=== PATIENT | female | born 1985 | race Caucasian/White ===

== ENCOUNTER 2023-09-08 09:22 | Emergency (ER) | payer BC, SELFPAY ==
--- NOTE | ~2023-09-08 | US_ITS ---
EXAMINATION: US pelvic complete w TV DATE: 09/08/2023 11:40 INDICATION: Right lower quadrant abdominal pain. TECHNIQUE: Multiple transabdominal and transvaginal sonographic images of the pelvis were obtained. COMPARISON: CT abdomen and pelvis 09/08/2023 FINDINGS: TRANSABDOMINAL ULTRASOUND: The uterus measures 6.7 x 3.1 x 3.6 cm. There is no free fluid in the pelvis. TRANSVAGINAL ULTRASOUND: The endometrial complex measures 5 mm in thickness. The right ovary measures 2.2 x 1.5 x 1.9 cm. The left ovary measures 2.6 x 1.8 x 1.5 cm. There is normal vascular flow in the ovaries. IMPRESSION: 1. Normal pelvis. Reviewed, dictated and finalized at location A. ATIONS SYSTEMS SPECIALIST IMPRESSION: 1. Normal pelvis.
--- NOTE | ~2023-09-08 | CT_ITS ---
CT of the Abdomen and Pelvis: Indication: Abdominal pain Technique: 2.5 mm axial scans were obtained through the abdomen and pelvis following intravenous adm inistration of 100 cc of Omnipaque 350. Dose reduction technique was used on this scan by utilizing a utomated exposure control and iterative reconstruction technique. The dose-length product (DLP) was 1 200.62 mGy-cm. Findings: Scans through the lung bases are unremarkable. There is diffuse fatty infiltration of liver. Cholecystectomy clips are present. The spleen, pancreas , adrenals and kidneys are within normal limits. No evidence of aortic aneurysm. No lymphadenopathy . No bowel obstruction or bowel wall thickening. There is no evidence to suggest acute appendicitis. Images through the pelvis were performed. Urinary bladder is unremarkable. No abnormal adnexal mass e vident. No ascites. There is degenerative spondylosis of the thoracolumbar spine. Large ossified disc complex at L1-L2 result in probable severe canal stenosis. Impression: No acute abnormality evident. Diffuse fatty infiltration of the liver. Degenerative spondylosis of lumbar spine, as above. Reviewed, dictated and finalized at [facility]. ISION ASSEMBLY INSPECTOR Impression: No acute abnormality evident. Diffuse fatty infiltration of the liver. Degenerative spondylosis of lumbar spine, as above.
[2023-09-08 09:23] VITALS: BP 111/84; PULSE 111; RESP 20; TEMP 36.9; O2SAT 100
[2023-09-08 09:47] LABS: Basophils Absolute Auto 0.2 K/mm3 (0.0-0.1); Eosinophils Absolute Auto 0.1 K/mm3 (0-0.3); Eosinophils Percent Auto 0.8 % (0-4.4); Hematocrit 45.7 % (37.0-47.0); Immature Granulocyte Absolute 0.08 K/mm3 (0.00-0.031); Immature Granulocyte Percent A 0.5 % (0-0.5); Lymphocytes Absolute Auto 1.92 K/mm3 (0.9-3.2); Lymphocytes Percent Auto 12.9 % (18.3-44.2); Mean Corpuscular HGB Conc 32.8 g/dl (32-36); Mean Corpuscular Hemoglobin 31.7 pg (26-34); Mean Corpuscular Volume 96.6 fl (80-100); Monocytes Absolute Auto 1.2 K/mm3 (0.1-0.6); Monocytes Percent Auto 7.7 % (2.6-8.5); Neutrophils Absolute Auto 11.5 K/mm3 (1.3-6.7); Neutrophils Percent Auto 77.1 % (45.5-73.1); Platelet Count Result 283 k/mm3 (150-375); Red Blood Count 4.73 M/mm3 (4.2-5.4); Red Cell Distribution Width 14.3 % (11.5-14.5); White Blood Count 14.9 K/mm3 (4.5-10.0)
--- NOTE | 2023-09-08 09:50 | ED.GENADULT ---
HPI - General Adult General Chief complaint: Abdominal Pain Stated complaint: ABD PAIN X4D Time Seen by Provider: 09/08/23 09:29 Source: patient Mode of arrival: ambulatory Limitations: no limitations History of Present Illness HPI narrative: This is a 38-year-old female who presents to the ED with chief complaint of right lower quadrant pain x4 days. Reports nausea with 1 episode of vomiting and decreased appetite. Reports she has had similar pains in the past due to ruptured ovarian cysts but it has never lasted this long before. Reports pain seems to be cyclical and baseline 4 out of 10, but comes in waves were increasing in severity. She does note starting her menstrual cycle 3 days ago as well. Denies fevers, chills, dysuria, hematuria, flank pain, chest pain, shortness of breath, cough. Related Data Home Medications Medication Instructions Recorded Confirmed atomoxetine 60 mg capsule 60 mg PO DAILY 03/27/23 03/27/23 Allergies Allergy/AdvReac Type Severity Reaction Status Date / Time antifungal AdvReac Mild GI UPSET Uncoded 03/27/23 13:26 Review of Systems Review of Systems: All systems as dictated in HPI [facility] Past Medical History Medical History ADHD Anxiety Headache PCOS (polycystic ovarian syndrome) Surgical History Surgical History H/O gastric sleeve History of back surgery History of cholecystectomy History of dilatation and curettage S/P ovarian cystectomy Family History Family History Other Alcoholism Depression Hypertension Social History Social History Smoking status: Never smoker Alcohol intake: current Substance use: never Substance use type: does not use Lack of Transportation: No Lack of Food: Never True Current Housing: I Have Housing Concerned About Future Housing: No Difficulty Paying Gas/Electric Bills: No Difficulty Paying for Meds: No Currently Unemployed: No Education: Bachelor's Degree Difficulty w/ Childcare or Family Care: No Exam Narrative: GENERAL: Well-appearing, well-nourished, and in no acute distress. HEAD: Normocephalic, atraumatic. EYES: PERRLA and EOMI. ENT: Nares clear, no rhinorrhea or epistaxis. Mucous membranes moist. Oropharynx without tonsillar hypertrophy exudate or other lesions. NECK: Supple. No adenopathy or masses. CHEST: No respiratory distress. Clear to auscultation. No wheezes rales or rhonchi HEART: Regular rate and rhythm. No murmur heard. Normal peripheral pulses. ABDOMEN: Mild right lower quadrant tenderness. Negative flank tenderness bilaterally. Soft, otherwise nontender, nondistended, normal active bowel sounds. Negative peritoneal signs. MSK: Normal range of motion. No edema. SKIN: Warm, dry, no rash. NEURO: Alert and oriented x3. No focal deficits. PSYCH: Normal mood and affect. Course Vital Signs Vital signs: Vital Signs Temperature 98.4 F 09/08/23 09:23 Pulse Rate 111 H 09/08/23 09:23 Respiratory Rate 20 09/08/23 09:23 Blood Pressure 111/84 09/08/23 09:23 Pulse Oximetry 100 09/08/23 09:23 Temperature 98.4 F 09/08/23 09:23 Pulse Rate 111 H 09/08/23 09:23 Respiratory Rate 20 09/08/23 09:23 Blood Pressure 111/84 09/08/23 09:23 Pulse Oximetry 100 09/08/23 09:23 Medical Decision Making MDM Narrative Medical decision making narrative: This is a 38-year-old female who presents to the ED with chief complaint of right lower quadrant abdominal pain for the past 4 days. Vitals show initial slight tachycardia but otherwise normal. Afebrile. Exam does reveal mild right lower quadrant tenderness but McBurney's point negative. Overall does not appear to have an acute abdomen. No flank pain. Lab work shows elevated white
[2023-09-08 10:06] LABS: Alanine Aminotransferase 69 U/L (6-35); Albumin Level 5.2 g/dL (3.5-5.1); Alkaline Phosphatase 109 U/L (38-126); Aspartate Amino Transferase 165 U/L (14-36); Bilirubin,Total 1.7 mg/dL (0.2-1.3); Blood Urea Nitrogen 9 mg/dL (7-17); Calcium 10.2 mg/dL (8.4-10.2); Carbon Dioxide 25 mmol/L (22-30); Chloride 98 mmol/L (98-107); Estimated CRCL calculation 101 ml/min; Estimated Glomerular Filt Rate > 60; Glucose 133 mg/dL (65-110); Lipase 48 U/L (23-300); Potassium 3.8 mmol/L (3.4-5.0)
[2023-09-08 10:08] LABS: Appearance Urine Turbid (Clear); Bacteria Urine 4+ /hpf; Bilirubin Urine Negative (Negative); Blood Urine 3+ (Negative); Color Urine Dark Yellow (Yellow); Glucose Urine UA Negative (Negative); Hyaline Casts Urine Present /lpf; Ketones Urine Trace mg/dL (Negative); Leukocyte Esterase Ur 3+ LEU/UL (Negative); Mucus Urine Present /lpf; Nitrate Urine Negative (Negative); Protein Urine 2+ mg/dL (Negative); RBC Urine 21-50 /hpf (0-2); Specific Grav Ur 1.015 (1.001-1.035); Squamous Epithelial Cell Urine Moderate /hpf (Few); WBC Urine >100 /hpf; pH Urine 5.5 (5.0-9.0)
[2023-09-08 10:10] LABS: Anion Gap 15 mmol/L (8-16); Sodium 138 mmol/L (137-145)
[2023-09-08 10:15] LABS: Add Urine Microscopic? YES
[2023-09-08] MEDS: SODIUM CHLORIDE 0.9% IV 1,000 ML 999 ML IV CONT (11:29)
[2023-09-08] MEDS: ONDANSETRON INJ 4 MG/2 ML VIAL IV PUSH (11:36)
== END 2023-09-08 12:38 | disposition home or self-care (01) ==
PROVIDERS: Emergency Provider Physician Assistant; PCP Family Medicine
DX: N39.0 Urinary tract infection, site not specified (principal); E28.2 Polycystic ovarian syndrome; F90.9 Attention-deficit hyperactivity disorder, unspecified type; F41.9 Anxiety disorder, unspecified; Z98.84 Bariatric surgery status; Z90.49 Acquired absence of other specified parts of digestive tract; K76.0 Fatty (change of) liver, not elsewhere classified; M47.816 Spondylosis without myelopathy or radiculopathy, lumbar region
CPT/HCPCS: 36415; 74177; 76830; 76856; 80053; 81001; 81025; 83690; 85025; 87077; 87086; 87186; 96365; 96375; 99284; J0696; J2405; J7030; Q9967

== ENCOUNTER 2024-11-30 18:54 | Emergency (ER) | payer BC, SELFPAY ==
[2024-11-30 19:05] VITALS: BP 127/82; PULSE 89; RESP 16; TEMP 36.4; O2SAT 100
--- NOTE | 2024-11-30 19:31 | ED_ITS ---
HPI - Skin/Abscess/Foreign Bdy General Chief complaint: Skin/Abscess/Foreign Body Stated complaint: area under chin swollen tender Time Seen by Provider: 11/30/24 19:26 Source: patient and RN notes reviewed Mode of arrival: ambulatory Limitations: dementia History of Present Illness HPI narrative: 39-year-old female presents concern for a lump under her chin. She reports it has been there about a week, it started off as a ping pong size ball and now it is the size of a golf ball. Reports it is very tender. She denies fever, body aches, chills, sweats. She denies trouble swallowing. Reports it does not o bstruct her swallowing. complaint: other (Redness) Related Data Home Medications ?Medication ?Instructions ?Recorded ?Confirmed ?Last Taken ?Type atomoxetine 60 mg capsule 60 mg PO DAILY 03/27/23 11/30/24 Unknown History Allergies Allergy/AdvReac Type Severity Reaction Status Date / Time antifungal AdvReac Mild GI UPSET Uncoded 11/30/24 19:08 Review of Systems Review of Systems: CONSTITUTIONAL: Denies malaise, chills, sweats, or fever. EYES: Denies redness, or discharge. ENT: Denies rhinorrhea, congestion, swollen lips, swollen tongue CARDIOVASCULAR: Denies chest pain, palpitations, or edema. RESPIRATORY: Denies cough or dyspnea. GASTROINTESTINAL: Denies abdominal pain, nausea, vomiting SKIN: Reports tender lump under her chin. Denies purulent drainage, vesicles, bullae, numbness, pain beyond proportion MUSCULOSKELETAL: Denies joint pain or myalgia. NEUROLOGIC: Denies headache. All systems reviewed & are unremarkable except as noted in HPI and below PMFSH Past Medical History Medical History ADHD Anxiety Headache PCOS (polycystic ovarian syndrome) Surgical History Surgical History H/O gastric sleeve History of back surgery History of cholecystectomy History of dilatation and curettage S/P ovarian cystectomy Family History Family History Other Alcoholism Depression Hypertension Social History Social History Smoking status: Never smoker Alcohol intake: current Substance use: never Substance use type: does not use Lack of Transportation: No Lack of Food: Never True Current Housing: I Have Housing Concerned About Future Housing: No Difficulty Paying Gas/Electric Bills: No Difficulty Paying for Meds: No Currently Unemployed: No Education: Bachelor's Degree Difficulty w/ Childcare or Family Care: No Comments At time of signature, agree with nursing past medical, surgical, social and family history. There is no relevant family history pertinent to the presenting complaint Exam Narrative: GENERAL: Well-appearing, well-nourished, and in no acute distress. HEAD: Normocephalic, atraumatic. EYES: PERRLA, conjunctivae clear ENT: Mucous membranes moist. NECK: Supple. No lymphadenopathy CHEST: Clear to auscultation. No respiratory distress. HEART: Regular rate and rhythm. SKIN: Warm, dry. Approximately 5 cm diameter submental palpable tender nodule with sharp margins noted without warmth, induration, fluctuation. No vesicles, bullae, necrosis, ecchymosis, crepitus noted. NEURO: Alert and oriented x3. PSYCH: Normal mood and affect Course Course Emergency Course: Patient is aware of diagnosis, understands and agrees to treatment plan. Anticipatory guidance given. Patient agrees to follow-up as directed and is aware of reasons to seek care at the emergency department. Portions of this record may have been created with voice recognition software Level of Care: Express Care Visit Vital Signs Vital signs: Vital Signs Temperature 97.6 F 11/30/24 19:05 Pulse Rate 89 11/30/24 19:05 Respiratory Rate 16 11/30/24 19:05 Blood Pressure 127/82 11/30/24 19:05 Pulse Oximetry 100 11/30/24 19:05 Oxygen Delivery Room Air 11/30/24 19:05 Temperature 97.6 F 11/30/24 19:05 Pulse Rate 89 11/30/24 19:05 Respiratory Rate 16 11/30/24 19:05 Blood Pressure 127/82 11/30/24 19:05 Pulse Oximetry 100 11/30/24 19:05 Oxygen Delivery Room Air 11/30/24 19:05 Reviewed. MDM - Skin/Abscess/Foreign Bdy MDM Narrative Medical decision making narrative: I evaluated this in the express care. History is obtained from patient who is an independent historian and physical exam was performed.? Available medical records were reviewed. ? Exam findings and relevant testing show no acute concerns or changes; patient is non-toxic appearing and is in no distress. No risk factors or findings concerning for epidural abscess, diskitis, vertebral osteomyelitis, cord compression, cauda equina, vertebral fracture or bone malignancy, AAA, or pyelonephritis. Patient instructed to consider further imaging and workup through their primary care physician as an outpatient if symptoms persist. Does not appear at this time to be erythema multiforme, bullous, SJS, TEN; no evidence at this time to suggest RMSF, NSTI, endocarditis or Lyme disease; patient looks well, nontoxic and is tolerating oral intake; no neurologic signs or symptoms; no headache, photophobia or neck pain; afebrile.? Patient does not have history of of penetrating trauma, laceration, blunt trauma, recent surgery, immunosuppression, malignancy, obesity, alcoholism, corticosteroid use.? Discussed the importance of follow-up, patient agrees; question, cellulitis versus necrotizing soft tissue infection versus abscess.?? Patient is appropriate for outpatient treatment and follow-up. Critical Care Time Critical Care Time Critical Care Time: No Discharge Plan Discharge Clinical Impression: Mass of submental region Patient Disposition: Home, Self-Care Condition: Stable Instructions: Antibiotic Form Additional Instructions: 1) Please follow-up with ENT in the next 1-2 days. 2) If you have any worsening of symptoms or any other urgent concerns please go to the ER. 3) Please take medications as prescribed and continue taking your home medications as usual. 4) Please read and follow information included in discharge instructions. Patient Language: Arabic Prescriptions: New clindamycin HCl 300 mg capsule 300 mg PO Q8H 7 Days Qty: 21 0RF No Action atomoxetine 60 mg capsule 60 mg PO DAILY Follow-up/Referrals: Narendra Chavez M.D. [Physician] - (Submental mass, non obstructive. Patient does not have PCP) UNKNOWN,DOCTOR [Primary Care Provider] - Time of Disposition: 19:40
== END 2024-11-30 19:46 | disposition home or self-care (01) ==
PROVIDERS: Emergency Provider Nurse Practitioner
DX: R22.0 Localized swelling, mass and lump, head (principal); F90.9 Attention-deficit hyperactivity disorder, unspecified type; Z98.84 Bariatric surgery status
CPT/HCPCS: 99213; G0463

== ENCOUNTER 2024-12-01 09:21 | Emergency (ER) | payer BC, SELFPAY ==
--- NOTE | ~2024-12-01 | XR_ITS ---
EXAMINATION: XR chest 2V DATE: 12/01/2024 10:59 INDICATION: Respiratory concerns TECHNIQUE: PA and lateral views of the chest were obtained. COMPARISON: None FINDINGS: The lungs are clear with no focal airspace opacities, pulmonary edema, pleural effusion or pneumothor ax. The cardiomediastinal silhouette is normal. Mild to moderate thoracic spondylosis. IMPRESSION: 1. No acute cardiopulmonary disease. Reviewed, dictated and finalized at location A. OR CLERK
--- NOTE | ~2024-12-01 | CT_ITS ---
EXAMINATION: CT soft tissue neck w con DATE: 12/01/2024 09:49 INDICATION: Neck swelling. TECHNIQUE: Computed tomography (CT) of the neck was performed with 75 mL Omnipaque-350 intravenous co ntrast. Automated exposure control and iterative reconstruction technique were employed. The dose-dorothy gth product was 544.15 mGy-cm. COMPARISON: None FINDINGS: There is right submandibular lymphadenopathy with the largest node measuring 13 x 17 mm. Th ere is fat stranding in the submandibular region around the nodes, consistent with inflammation. The submandibular glands are normal. There is mild right high internal jugular chain lymphadenopathy. The re are calcifications in the palatine tonsils. There is plaque in the proximal internal carotid arter ies was adjusted to 0% stenosis relative to normal distal artery lumen diameters. There is mild cervi yaneli spondylosis. IMPRESSION: 1. Inflammation in the submandibular region with mild right submandibular and right high internal jug ular chain lymphadenopathy, likely reactive. Reviewed, dictated and finalized at location A. NFORMATICIAN IMPRESSION: 1. Inflammation in the submandibular region with mild right submandibular and r ight high internal jugular chain lymphadenopathy, likely reactive.
--- NOTE | ~2024-12-01 | US_ITS ---
EXAMINATION: US soft tissue head and neck DATE: 12/01/2024 12:57 INDICATION: Submandibular masses versus abscesses. TECHNIQUE: Multiple grayscale and Doppler ultrasound images of the submandibular region of concern we re obtained. COMPARISON: CT dated 12/01/2024 FINDINGS: There are at least 6 very hypoechoic round masses in the region of concern, the largest measuring 1.5 x 1.2 x 1.2 cm. Vascular flow seen extending into the very hypoechoic region from a central echogeni c fatty hilum consistent with lymph nodes. IMPRESSION: 1. Several enlarged right submandibular lymph nodes which could be reactive or related to lymphoma. G iven appearance on CT would favor the former. Reviewed, dictated and finalized at location A. T PRODUCTION COORDINATOR IMPRESSION: 1. Several enlarged right submandibular lymph nodes which could be reactive or related to lymphoma. Given appearance on CT would favor the former.
[2024-12-01 09:30] VITALS: BP 139/82; PULSE 97; RESP 16; TEMP 36.4; O2SAT 100
--- NOTE | 2024-12-01 09:35 | ED_ITS ---
HPI - Skin/Abscess/Foreign Bdy General Chief complaint: Skin/Abscess/Foreign Body <Cata Lyon APRN - Last Filed: 12/01/24 09:39> Stated complaint: abscess ? <Cata Lyon APRN - Last Filed: 12/01/24 09:39> Time Seen by Provider: 12/01/24 09:30 <Cata Lyon APRN - Last Filed: 12/01/24 09:39> Focused HPI: Patient is a 39-year-old female presents to the ER with complaints swollen. She reports she went to urgent care yesterday and was given a prescription for antibiotics but also encouraged to go to the ER. 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 She denies any recent fevers, neck tightness, headaches. Patient reports that urgent care did not swab her for strep. She reports that the abscess feels approximately golf ball-sized and ?hurts to swallow. Patient also endorses shortness of breath. She endorses a history of ?menstrual issues, multiple cysts, and a spinal fusion. GENERAL: Well-appearing, well-nourished, and in no acute distress. HEAD: Normocephalic, atraumatic. Swollen, palpable abscess superior to pt's thyroid gland. CHEST: Clear to auscultation. ?No respiratory distress, no stridor. HEART: Regular rate and rhythm.? NEURO: ?Alert and oriented x3. Patient screened in triage and initial orders placed.? ?Additional care and disposition to be based upon?diagnostic testing and treatment. <Cata Lyon APRN - Last Filed: 12/01/24 09:39> Related Data Home medications: Home Medications ?Medication ?Instructions ?Recorded ?Confirmed ?Last Taken ?Type atomoxetine 60 mg capsule 60 mg PO DAILY 03/27/23 11/30/24 Unknown History <Cata Lyon APRN - Last Filed: 12/01/24 09:39> Allergies/Adverse reactions: Allergies Allergy/AdvReac Type Severity Reaction Status Date / Time antifungal AdvReac Mild GI UPSET Uncoded 11/30/24 19:08 <Cata Lyon APRN - Last Filed: 12/01/24 09:39> [facility] Past Medical History Medical History: Medical History PCOS (polycystic ovarian syndrome) Headache Anxiety ADHD <Cata Lyon APRN - Last Filed: 12/01/24 09:39> Surgical History Surgical History: Surgical History H/O gastric sleeve S/P ovarian cystectomy History of cholecystectomy History of dilatation and curettage History of back surgery <Cata Lyon APRN - Last Filed: 12/01/24 09:39> Family History Family History: Family History Other Alcoholism Depression Hypertension <Cata Lyon APRN - Last Filed: 12/01/24 09:39> Social History Social History: Social History Smoking status: Never smoker Alcohol intake: current Substance use: never Substance use type: does not use Lack of Transportation: No Lack of Food: Never True Current Housing: I Have Housing Concerned About Future Housing: No Difficulty Paying Gas/Electric Bills: No Difficulty Paying for Meds: No Currently Unemployed: No Education: Bachelor's Degree Difficulty w/ Childcare or Family Care: No <Cata Lyon APRN - Last Filed: 12/01/24 09:39> Exam 2 Narrative: APPEARANCE: No apparent distress. Head: Palpable circumscribed mass underneath the mandible, no swelling of the floor of the mouth, no voice changes, no stridor no erythema to the neck or swelling to the neck EYES: EOMI, NOSE: Atraumatic NECK: Trachea midline RESPIRATORY: No increased rate of breathing CARDIOVASCULAR: RRR, ABDOMINAL: Non-distended MUSCULOSKELETAl: No obvious deformities NEURO: Alert. Moving 4/4 extremities SKIN:: Warm, dry. Normal color PSYCHIATRIC: Normal affect <Mikel Mariee MD - Last Filed: 12/01/24 13:48> Course Vital Signs Vital signs: Vital Signs Temperature 97.6 F 12/01/24 09:30 Pulse Rate 97 12/01/24 09:30 Respiratory Rate 16 12/01/24 09:30 Blood Pressure 139/82 12/01/24 09:30 Pulse Oximetry 100 12/01/24 09:30 Temperature 97.6 F 12/01/24 09:30 Pulse Rate 85 12/01/24 10:51 Respiratory Rate 16 12/01/24 09:30 Blood Pressure 126/74 12/01/24 10:51 Pulse Oximetry 98 12/01/24 10:51 Oxygen Delivery Room Air 12/01/24 10:46 <Cata Lyon, JUNITO - Last Filed: 12/01/24 09:39> Vital Signs Temperature 97.6 F 12/01/24 09:30 Pulse Rate 97 12/01/24 09:30 Respiratory Rate 16 12/01/24 09:30 Blood Pressure 139/82 12/01/24 09:30 Pulse Oximetry 100 12/01/24 09:30 Temperature 97.6 F 12/01/24 09:30 Pulse Rate 85 12/01/24 10:51 Respiratory Rate 16 12/01/24 09:30 Blood Pressure 126/74 12/01/24 10:51 Pulse Oximetry 98 12/01/24 10:51 Oxygen Delivery Room Air 12/01/24 10:46 <Mikel Mariee MD - Last Filed: 12/01/24 13:48> MDM - Skin/Abscess/Foreign Bdy MDM Narrative Medical decision making narrative: -Course: 39-year-old female presenting with swelling underneath her mandible. Masses were confirmed as inflamed lymph nodes on imaging. Patient will be treated with Augmentin, Toradol and a dose of steroids. She will be instructed to follow-up with ENT. Given return precautions for worsening swelling shortness of breath difficulty swallowing or voice changes. -DDX includes but is not limited to: Submandibular abscess, submandibular infection, lymphoma <Mikel Mariee MD - Last Filed: 12/01/24 13:48> Lab Data Result diagrams: 12/01/24 10:49 12/01/24 10:49 <Cata Lyon APRN - Last Filed: 12/01/24 09:39> Labs: Lab Results 12/01/24 Range/Units 10:49 WBC 7.0 (4.5-10.0) K/mm3 RBC 4.59 (4.2-5.4) M/mm3 Hgb 14.7 (12.0-15.0) g/dL Hct 44.3 (37.0-47.0) % MCV 96.5 (80-100) fl MCH 32.0 (26-34) pg MCHC 33.2 (32-36) g/dl RDW 14.3 (11.5-14.5) % Plt Count 129 L D (150-375) k/mm3 MPV 10.1 (7.4-10.4) fl Immature Gran % (Auto) 0.3 (0-0.5) % Neut % (Auto) 67.5 (45.5-73.1) % Lymph % (Auto) 22.7 (18.3-44.2) % [place] % (Auto) 5.9 (2.6-8.5) % Eos % (Auto) 2.6 (0-4.4) % Baso % (Auto) 1.0 (0.2-1.2) % Lymph # (Auto) 1.58 (0.9-3.2) K/mm3 [place] # (Auto) 0.4 (0.1-0.6) K/mm3 Eos # (Auto) 0.2 (0-0.3) K/mm3 Baso # (Auto) 0.1 (0.0-0.1) K/mm3 Abs Immat Gran (auto) 0.02 (0.00-0.031) K/mm3 Absolute Neuts (auto) 4.7 (1.3-6.7) K/mm3 Absolute Nucleated RBC 0.000 (0.0-0.012) K/mm3 Nucleated RBC % 0.0 (0.0-0.2) % % Immature Plt Fraction 3.7 (0.9-11.2) % PT 14.8 H (11.1-14.7) Seconds INR 1.1 APTT 32.4 (22.3-36.8) Seconds Sodium 139 (137-145) mmol/L Potassium 4.0 (3.4-5.0) mmol/L Chloride 100 (98-107) mmol/L Carbon Dioxide 26 (22-30) mmol/L Anion Gap 13 H (4-12) mmol/L BUN 6 L (7-17) mg/dL Creatinine 0.55 L (0.7-1.0) mg/dL Estim Creat Clear Calc 142 ml/min Estimated GFR > 60 (59 - ) Glucose 95 (65-110) mg/dL Lactic Acid 1.1 (0.7-2.0) mmol/L Calcium 9.6 (8.4-10.2) mg/dL Total Bilirubin 1.2 (0.2-1.3) mg/dL AST 123 H (14-36) U/L ALT 70 H (6-35) U/L Alkaline Phosphatase 129 H (38-126) U/L Troponin I < 0.012 (0.000-0.034) ng/mL C-Reactive Protein 1.6 H (<1.0) mg/dL Total Protein 9.0 H (6.3-8.2) g/dL Albumin 4.8 (3.5-5.1) g/dL <Cata Lyon, SCRIPT SUPERVISOR - Last Filed: 12/01/24 09:39> Lab Results 12/01/24 Range/Units 10:49 WBC 7.0 (4.5-10.0) K/mm3 RBC 4.59 (4.2-5.4) M/mm3 Hgb 14.7 (12.0-15.0) g/dL Hct 44.3 (37.0-47.0) % MCV 96.5 (80-100) fl MCH 32.0 (26-34) pg MCHC 33.2 (32-36) g/dl RDW 14.3 (11.5-14.5) % Plt Count 129 L D (150-375) k/mm3 MPV 10.1 (7.4-10.4) fl Immature Gran % (Auto) 0.3 (0-0.5) % Neut % (Auto) 67.5 (45.5-73.1) % Lymph % (Auto) 22.7 (18.3-44.2) % [place] % (Auto) 5.9 (2.6-8.5) % Eos % (Auto) 2.6 (0-4.4) % Baso % (Auto) 1.0 (0.2-1.2) % Lymph # (Auto) 1.58 (0.9-3.2) K/mm3 [place] # (Auto) 0.4 (0.1-0.6) K/mm3 Eos # (Auto) 0.2 (0-0.3) K/mm3 Baso # (Auto) 0.1 (0.0-0.1) K/mm3 Abs Immat Gran (auto) 0.02 (0.00-0.031) K/mm3 Absolute Neuts (auto) 4.7 (1.3-6.7) K/mm3 Absolute Nucleated RBC 0.000 (0.0-0.012) K/mm3 Nucleated RBC % 0.0 (0.0-0.2) % % Immature Plt Fraction 3.7 (0.9-11.2) % PT 14.8 H (11.1-14.7) Seconds INR 1.1 APTT 32.4 (22.3-36.8) Seconds Sodium 139 (137-145) mmol/L Potassium 4.0 (3.4-5.0) mmol/L Chloride 100 (98-107) mmol/L Carbon Dioxide 26 (22-30) mmol/L Anion Gap 13 H (4-12) mmol/L BUN 6 L (7-17) mg/dL Creatinine 0.55 L (0.7-1.0) mg/dL Estim Creat Clear Calc 142 ml/min Estimated GFR > 60 (59 - ) Glucose 95 (65-110) mg/dL Lactic Acid 1.1 (0.7-2.0) mmol/L Calcium 9.6 (8.4-10.2) mg/dL Total Bilirubin 1.2 (0.2-1.3) mg/dL AST 123 H (14-36) U/L ALT 70 H (6-35) U/L Alkaline Phosphatase 129 H (38-126) U/L Troponin I < 0.012 (0.000-0.034) ng/mL C-Reactive Protein 1.6 H (<1.0) mg/dL Total Protein 9.0 H (6.3-8.2) g/dL Albumin 4.8 (3.5-5.1) g/dL <Mikel Mariee MD - Last Filed: 12/01/24 13:48> Discharge Plan Discharge Clinical Impression: Submandibular lymphadenitis <Cata Lyon APRN - Last Filed: 12/01/24 09:39> Patient Disposition: Home, Self-Care <Cata SaeJose Luis JUNITO Lyon - Last Filed: 12/01/24 09:39> Condition: Stable <Catamilton Lyon APRN - Last Filed: 12/01/24 09:39> Instructions: Antibiotic Form, Lymphadenopathy (ED) <Cata Lyon APRN - Last Filed: 12/01/24 09:39> Additional Instructions: Please take the antibiotics as instructed. Use Motrin Tylenol for pain control. Please follow-up with the ENT doctor provided in the next 48-72 hours to ensure symptoms are improving. If they are getting worse, you develop swelling in the floor of her mouth, difficulty breathing, swallowing or voice changes at white to return to emergency department immediately for re- evaluation. <Cata Lyon APRN - Last Filed: 12/01/24 09:39> Patient Language: Latvian <Cata Lyon APRN - Last Filed: 12/01/24 09:39> Prescriptions: New amoxicillin-pot clavulanate 875-125 mg tablet 1 tablet PO Q12H Qty: 20 0RF acetaminophen 500 mg tablet 1,000 mg PO TID PRN (Reason: tremaine) 7 Days Qty: 42 0RF ibuprofen 800 mg tablet 800 mg PO TID PRN (Reason: pain) 7 Days Qty: 21 0RF No Action clindamycin HCl 300 mg capsule 300 mg PO Q8H 7 Days Qty: 21 0RF atomoxetine 60 mg capsule 60 mg PO DAILY <Cata Lyon APRN - Last Filed: 12/01/24 09:39> Follow-up/Referrals: Willie Marquez MD [Physician] - 3 Days (Submandibular lymphadenitis ) UNKNOWN,DOCTOR [Primary Care Provider] - <Cata Lyon APRN - Last Filed: 12/01/24 09:39>
--- NOTE | 2024-12-01 09:39 | ECG_ITS ---
Test Date: 2024-12-01 10:40:01 Measurements Intervals [place] Rate: 90 P: 41 VT: 136 QRS: 1 QRSD: 95 T: 8 QT: 354 QTc: 434 Interpretive Statements SINUS RHYTHM POSSIBLE LEFT ATRIAL ENLARGEMENT LOW QRS VOLTAGE IN PRECORDIAL LEADS BORDERLINE ST-T WAVE ABNORMALITY- INF/LAT LEADS BASELINE ARTIFACT- V5 BORDERLINE ECG No previous ECG available for comparison Electronically Signed On 12-01-2024 11:04:56 METER READING CLERK by Rashada Chahal D.O.
--- OUTSIDE RECORDS SUMMARY | 2024-12-01 09:54 | XMS_ITS | Encounter Summary ---
Author Organization [facility] Address [address] [place] [address] Care Team Providers Care Centrifugal Separator Name Role Phone Chelsie Pleitez MD Primary Care Provider [phone] Encounter Details Date Type Department Care Team (Late st Contact Info) Description 01/21/2020 Digital Self COVID-1 9 Screening [facility] ABSTRACTION Provider, Abstract NO ADDRESS ON FILE Social History Tobacco Use Types Packs/Day Years Used Date Smoking Tobacco: Never Smokeless Tobacco: Never Alcohol Use Standard Drinks/Week Comments Yes 1 (1 standard drink = 0.6 oz pur e alcohol) socially Comments No Sex and Gender Information Value Date Recorded Sex Assigned at Not on file 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 No / Unsure 01/20/2020 12:18 PM CDT documented as of this encounter Plan of Treatment Not on file documented as of this encounter Visit Diagnoses Not on filedocumented in this encounter Additional Health Concerns Infection Onset Date Last Indicated Resolved Time R/O COVID-19 01/21/2020 01/21/2020 01/26/2020 6:51 AM CDT documented as of this encounter Care Teams Centrifugal Separator Relationship Specialty Start [place] [id number] [place] [id number] PCP - General Internal Medicine 09/01/14 documented as of this encounter
--- OUTSIDE RECORDS SUMMARY | 2024-12-01 09:54 | XMS_ITS | Data Portability ---
Author Organization [place] [facility], Main Office Address [address] [place] [address] Assessment Encounter Date Assessment Date Assessment LastModified by Organization Details LastModified Time 06/01/2024 06/01/2024 The patient presents with a chief complaint of shoulder pain and weakness, which has worsened over the past couple of weeks. The patient has a history of an old rugby injury from 20 years ago, which has caused some weakness in the shoulder for about a year. The patient experienced a sudden worsening of symptoms after feeling a pop in the shoulder a couple of weeks ago. 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 She denies any other medical problems, such as heart disease, lung disease, diabetes, or smoking. Physical Exam: Tenderness at the acromioclavicular (AC) joint. No significant pain at the biceps tendon. Lateral shoulder pain. Active shoulder abduction limited to 80 degrees; passive abduction up to 150 degrees. Positive drop arm test. External rotation limited to 30 degrees. Internal rotation weak but able to reach behind back without significant difficulty. Weakness in external rotation, internal rotation, and shoulder elevation. Positive Neer/Reeves test indicating impingement. X-rays were obtained, showing no fractures or dislocations, presence of a hook or spur on the underside of the acromion, and sclerosis at the acromion suggesting repetitive impact. For the suspected acute rotator cuff tear, we will order an MRI to evaluate the extent of the injury and confirm the diagnosis. In the meantime, initiate physical therapy to strengthen the deltoid and other muscles, and improve the range of motion. Recommend using [id number]-[id number] topical anti-inflammatory cream, Voltaren, for pain management. After the MRI results are available, we will reevaluate to discuss treatment options, including possible surgical intervention if necessary. Not available 06/02/2024 00:59:47 07/21/2024 07/21/2024 39-year-old [place] son presents for follow-up of her left shoulder. She has a suspected rotator cuff that we sent for MRI. She is here to review those results. She still has difficulty with lifting overhead and reaching, currently rates her pain as 3/10. She had COVID the past few days and has not been using the arm much and feels better after that, but it will get worse when she does more activities. She has tenderness over the lateral shoulder. Tenderness over the AC joint. Range of motion 120/20/lower lumbar. 4/5 strength with elevation, positive Nima, positive Neer and Reeves, positive Aurora's. With AC compression. MRI was reviewed, demonstrating a full-thickness rotator cuff tear involving the supraspinatus. Slap tear. AC arthrosis We discussed that with her symptoms failing conservative management so far, the next step would be to consider surgery for rotator cuff repair. This would be a shoulder scope, cuff repair, biceps tenodesis, distal clavicle excision, subacromial decompression, and debridement. Risks, benefits, and alternatives to surgery were discussed with the patient. Risks include but are not limited to pain, stiffness, infection, bleeding, blood clot, injury to other structures including nerves or blood vessels, need for future surgery, and anesthesia risks. We discussed the goal of surgery is to improve symptoms but there is no guarantee of improvement and it is possible the patient's condition is worse after surgery. Patient agreed and would like to proceed. She wants to get this done in October so we will have her call back when she is ready to schedule. Not available 07/21/2024 18:09:10 Plan of Treatment Reminders Order Date Submit Date Provider Last Modified By Organization Details Last Modified Time Details Appointments None recorded. Lab None recorded. Referral orthopedic surgeon referral - Please call patient to schedule an appointment . Thank you. 2023 024 MONIQUE Oconnell MD, [address] [facility] [address], [facility], [place], [address], 01:01:36 physical therapist referral - EVAL AND TREAT 2023 024 [facility], [address], [place], [address], 4 16:15:10 Procedures None recorded. Surgeries None recorded. Imaging XR, shoulder, 2 or more view - Please call pt to schedule 2023 024 [email or web address] [address] [facility], [address], [place], [address], 4 10:02:23 XR, shoulder 2023 024 [facility] [place], [address], [place], [address], 4 07:35:02 Medication Orders atomoxetine 60 mg capsule [address] [facility], [address], [place], [place], [id number], 4 08:08:36 Lexapro 5 mg tablet [address] [facility]76, [address], [place], [place], [id number], 4 08:08:40 hydroxyzine HCl 25 mg tablet 2022 023 [facility] [address] [facility]1704, [address], [place], [place], [id number], 4 08:08:45 cyclobenzap rine 7.5 mg tablet 2023 024 [facility]37995, [address], [place], [place], [id number], 4 08:22:24 cyclobenzap rine 10 mg tablet 2023 024 [facility], [address] , [place], [place], [id number], 11:54:30 Patient TargetsNo targets recorded. Patient InstructionsNo instructions recorded. Reason for Referral Orthopedic Surgeon Referral for Pain of left shoulder joint left shoulder pain Please call patient to schedule an appointment. Thank you. Referring Physician: John Santiago, Family Medicine, Encounter Date: 05/18/2024 Physical Therapist Referral for Pain of left shoulder joint EVAL AND TREAT Referring Physician: Gregory García, Orthopedic Surgery, Encounter Date: 06/01/2024 Results Created Date Observation Date Name Description Value Unit Range Abnormal Flag Note LastModifiedBy Organization Detail LastModifiedTime 03/10/2003/15/2023 IRON AND TOTAL IRON ANH NG CAPAC ITY iron, total 34 mcg/d L 40-190 low Not Available [facility] [address] [place], [address], 03/15/2023 13:25:30 03/10/2003/15/2023 IRON AND TOTAL IRON ANH NG CAPAC ITY iron binding capacity 277 mcg/d L_(ca lc) 250-45 0 normal Not Available [place] [address] [address] [place], [address], 03/15/2023 13:25:30 03/10/2003/15/2023 IRON AND TOTAL IRON ANH NG CAPAC ITY % saturation 12 %_(ca lc) 16-45 low Not Available [facility] [place] [address] [place], [address], 03/15/2023 13:25:30 03/10/2003/15/2023 MAGNE SIUM magnesium 1.9 mg/dL 1.5-2. 5 normal Not Available [facility] [place] [address] [place], [address], 03/15/2023 13:25:31 03/10/2003/15/2023 BASIC METAB OLIC PANEL glucose 77 mg/dL 65-99 normal Fasti ng refer ence inter naeem Not Available [address] [address] [place], [address], 03/15/2023 13:25:32 03/10/20 23 03/15/2023 BASIC METAB OLIC PANEL urea nitrogen (BUN) 8 mg/dL 7-25 normal Not Available [address], [address], 03/15/2023 13:25:32 03/10/20 23 03/15/2023 BASIC METAB OLIC PANEL creatinine 0.59 mg/dL 0.50-0 .97 normal Not Available [address] [address] [place], [address], 03/15/2023 13:25:32 03/10/20 23 03/15/2023 BASIC METAB OLIC PANEL eGFR 117 mL/mi n/1.7 3m2 > or = 60 normal The eGFR is based on the CKD-E PI 2020 equat ion. To calcu late the new eGFR from a previ ous Creat inine or Cysta tin C resul t, go to https ://rachael orozco.chi cartagena/logan garza s/ kdoqi /gfr% 5Fcal culat or Not Available [address] [address] [place], [address], 03/15/2023 13:25:32 03/10/20 23 03/15/2023 BASIC METAB OLIC PANEL BUN/creatini ne ratio NOT APPLIC ABLE (calc ) 6-22 Not Available [address] [address] [place], [address], 03/15/2023 13:25:32 03/10/20 23 03/15/2023 BASIC METAB OLIC PANEL sodium 140 mmol/ L 135-14 6 normal Not Available [address] [address] [place], [address], 03/15/2023 13:25:32 03/10/20 23 03/15/2023 BASIC METAB OLIC PANEL potassium 4.0 mmol/ L 3.5-5. 3 normal Not Available [address], [address], 03/15/2023 13:25:32 03/10/20 23 03/15/2023 BASIC METAB OLIC PANEL chloride 107 mmol/ L 98-110 normal Not Available [address], [address], 03/15/2023 13:25:32 03/10/20 23 03/15/2023 BASIC METAB OLIC PANEL carbon dioxide 23 mmol/ L 20-32 normal Not Available [address], [address], 03/15/2023 13:25:32 03/10/20 23 03/15/2023 BASIC METAB OLIC PANEL calcium 9.3 mg/dL 8.6-10 .2 normal Not Available [address], [address], 03/15/2023 13:25:32 03/10/20 23 03/15/2023 HEPAT IC FUNCT ION PANEL protein, total 6.8 g/dL 6.1-8. 1 normal Not Available [address], [address], 03/15/2023 13:25:32 03/10/20 23 03/15/2023 HEPAT IC FUNCT ION PANEL albumin 4.2 g/dL 3.6-5. 1 normal Not Available [address], [address], 03/15/2023 13:25:32 03/10/20 23 03/15/2023 HEPAT IC FUNCT ION PANEL globulin 2.6 g/dL_ (calc ) 1.9-3. 7 normal Not Available [address], [address], 03/15/2023 13:25:32 03/10/20 23 03/15/2023 HEPAT IC FUNCT ION PANEL albumin/glob ulin ratio 1.6 (calc ) 1.0-2. 5 normal Not Available [address], [address], 03/15/2023 13:25:32 03/10/20 23 03/15/2023 HEPAT IC FUNCT ION PANEL bilirubin, total 0.7 mg/dL 0.2-1. 2 normal Not Available [address], [address], 03/15/2023 13:25:32 03/10/20 23 03/15/2023 HEPAT IC FUNCT ION PANEL bilirubin, direct 0.2 mg/dL < or = 0.2 normal Not Available [address], [address], 03/15/2023 13:25:32 03/10/20 23 03/15/2023 HEPAT IC FUNCT ION PANEL bilirubin, indirect 0.5 mg/dL _(yaneli c) 0.2-1. 2 normal Not Available [address], [address], 03/15/2023 13:25:32 03/10/20 23 03/15/2023 HEPAT IC FUNCT ION PANEL alkaline phosphatase 69 U/L 31-125 normal Not Available [place] [address] [address] [place], [address], 03/15/2023 13:25:32 03/10/20 23 03/15/2023 HEPAT IC FUNCT ION PANEL AST 52 U/L 10-30 high Not Available [address], [address], 03/15/2023 13:25:32 03/10/20 23 03/15/2023 HEPAT IC FUNCT ION PANEL ALT 43 U/L 6-29 high Not Available [facility] [address] [place], [address], 03/15/2023 13:25:32 03/10/20 23 03/15/2023 TANJA TIN ferritin 96 NG/mL 16-154 normal Not Available [facility] [address] [place] [address], [address], 03/15/2023 13:25:33 03/10/20 23 03/15/2023 VITAM IN B12/F OLATE , SERUM PANEL vitamin B12 769 pg/mL 200-11 00 normal Not Available [facility] [address] [place] [address], [address], 03/15/2023 13:25:34 03/10/20 23 03/15/2023 VITAM IN B12/F OLATE , SERUM PANEL folate, serum 7.9 NG/mL normal Refer ence Range Low: <3.4 Borde rline : 3.4-5 .4 Susan l: >5.4 Not Available [facility] [address] [place] [address], [address], 03/15/2023 13:25:34 03/10/2003/15/2023 TSH W/REF DANK TO FT4 TSH w/reflex to FT4 1.68 mIU/L normal Refer ence Range > or = 20 Years 0.40- 4.50 Pregn shaina Range s First trime ster 0.26- 2.66 Secon d trime ster 0.55- 2.73 Third trime ster 0.43- 2.91 Not Available [facility] [address] [place], [address], 03/15/2023 13:25:35 03/10/20 23 03/15/2023 VITAM IN D,25- OH,TO RADHA,I A vitamin D,25-oh,tota l,ia 29 NG/mL 30-100 low Vitam in D Statu s 25-OH Vitam in D: Defic iency : <20 ng/mL Insuf ficie ncy: 20 - 29 ng/mL Optim al: > or = 30 ng/mL For 25-OH Vitam in D testi ng on patie nts on D2-tavarez pplem entat ion and patie nts for whom quant itati on of D2 and D3 fract ions is requi red, the [facility] Assur eD(TM ) 25-OH VIT D, (D2,D 3), LC/MS /MS is recom za d: order code 90631 (francisco ents >2yrs ). See Note 1 Note 1 For addit ional infor corinna brennan e refer to http: //[facility] silver sidhu.[place]on stDia gnost ics.c om/fa q/FAQ 199 (This link is being provi ded for infor tone harper/ saturnino gonzáles l purpo ses only. ) Not Available [facility] [address] [place], [address], 03/15/2023 13:25:35 03/10/2003/15/2023 VITAM IN B1 (THIA MINE) , BLOOD , LC/MS /MS vitamin B1 (thiamine), blood, lc/MS/MS 85 nmol/ L 78-185 Vitam in suppl ement ation withi n 24 hours prior to blood draw may affec t the accur acy of resul ts. This test was devel oped and its anjana tical perfo rmanc e dontae cteri stics have been deter mined by [facility]. It has not been clear ed or appro hero by the FDA. This assay has been valid ated pursu ant to the CLIA regul ation s and is used for clini yaneli purpo ses. Not Available [facility] [address] [place], [address], 03/15/2023 13:25:36 03/10/2003/15/2023 HEMOG LOBIN A1C hemoglobin A1C 4.7 %_of_ total _HGB <5.7 normal For the purpo se of vannessa godoyg for the prese nce of diabe grazyna: <5.7% Consi stent with the absen ce of diabe grazyna 5.7-6 .4% Consi stent with incre ased risk for diabe grazyna (pred iabet es) > or =6.5% Consi stent with diabe grazyna This assay resul t is consi stent with a decre ased risk of diabe grazyna. Curre ntly, no conse nsus exist s emerita pedroza use of hemog lobin A1c for diagn osis of diabe grazyna in child melvin. Accor ding to Ameri can Diabe grazyna Assoc iatio n (ADA) guide lines , hemog lobin A1c <7.0% repre sents optim al contr ol in non-p regna nt diabe tic patie nts. Diffe rent metri cs may apply to speci fic patie nt popul ation s. Stand ards of Medic al Care in Diabe grazyna(A DA). Not Available [facility] [address] [place], [address], 03/15/2023 13:25:36 09/08/20 23 09/08/2023 CT, abdom en + pelvi s, w/ contr ast No observ ation record ed. [address], [place], [address], 03/05/2024 12:12:28 09/08/20 23 09/08/2023 US, pelvi s No observ ation record ed. [address], [place], [address], 03/05/2024 12:12:47 06/01/20 24 XR, shoul kaushik No observ ation record ed. [email or web address] [facility] [place] [address] [facility] [address], [place], [address], 06/01/2024 09:10:49 06/09/20 24 06/09/2024 MRI, shoul kaushik, w/o contr ast No observ ation record ed. [email or web address] [address], [address], 07/05/2024 13:28:58 Result Notes None recorded. Problems Name Problem SNOMED Code Status Onset Date Resolution Date Notes Provider Name and Address Organization Details Recorded Time Degenerati on of lumbar interverte bral disc 88343413 Active 2022 Fusion L5 Wendy Sherman MD [address], [address], [place], [address], [facility] 3 08:34:52 Cyst of ovary 14248940 Active 2022 Wendy Sherman MD [address], [address], [place], [address], [facility] 3 08:38:26 Weight gain 4064498 Active 2022 Wendy Sherman MD [address], [address], [place], [address], [facility] 3 08:43:45 Diarrhea 75269541 Active 2022 Wendy Sherman MD [address], [address], [place], [address], [facility] 3 08:47:03 Chronic diarrhea 298620020 Active 2022 Wendy Sherman MD [address], [address], [place], [address], [facility] 3 08:47:10 Attention deficit hyperactiv ity disorder 673661365 Active 2022 Wendy Sherman MD [address], [address], [place], [address], [facility] 3 08:49:44 Gastroesop hageal reflux disease without esophagiti s 986040683 Active 2022 Wendy Sherman MD [address], [address], [place], [address], [facility] 3 08:44:26 Thoracic back pain 775115342 Active 2022 Wendy Sherman MD [address], [address], [place], [address], [facility] 3 08:49:06 Cough 11099002 Active 2022 Wendy Sherman MD [address], [address], [place], [address], [facility] 3 12:01:40 Vitamin D deficiency 53660787 Active 2022 Wendy Sherman MD [address], [place], [address], [facility] 3 08:54:54 Iron deficiency anemia 00701900 Active 2022 Wendy Sherman MD [address], [address], [place], [address], [facility] 3 08:54:59 Mixed anxiety and depressive disorder 461106709 Active 2022 CHRISTIAN Hylton [address], [address], [place], [address], [facility] [employer] 3 15:39:45 Giardiasis 52220291 Active 2022 CHRISTIAN Hylton [address], [place], [address], [facility] 3 14:33:02 Pain of left shoulder joint 6248462031891 9109 Active 2023 CHRISTIAN Hylton [address], [place], [address], [facility] 4 08:13:07 Rupture of rotator cuff of right shoulder 9522676408775 9103 Active 2023 Gregory García MD [address], [address], [place], [address], [facility] 4 01:00:45 Rupture of rotator cuff of left shoulder 7448240812324 9102 Active 2023 Gregory García MD [address] [facility], [address], [place], [address], [facility] 09:38:32 Problem Notes None recorded. Procedures Surgical History Date Name Laterality Status Provider Name and Address Organization Details Recorded Time Spinal Fusion completed Naomi Perdomo CNA [place] [facility] [employer] 06/01/2024 09:09:35 laparoscopic sleeve gastrectomy completed Naomi Perdomo CNA [facility] [employer] 06/01/2024 09:09:59 Imaging Results Imaging Date Name Status LastModified by Organiz ation Details LastModified Time 09/08/2023 CT, abdomen + pelvis, w/ contrast completed [address] [place] [address], [address], 03/05/2024 12:12:28 09/08/2023 US, pelvis completed [address], [address], 03/05/2024 12:12:47 06/01/2024 [email or web address] [place] [address] [facility] [address], [place], [address], 06/01/2024 09:10:49 06/09/2024 MRI, shoulder, w/o contrast completed [address] [place], [address], 07/05/2024 13:28:58 Procedure Notes None recorded. Medical Equipment None Reported. Allergies Allergen ID Allergen Name Allergen Category Reaction Reaction Severity Criticality Documentation Date Start Date Code Code System Note Provider Name and Address Organization Details Recorded Time 47093 miconazol e medicatio n Not available Not available Not available 01/07/2023 6932 RxNorm Wendy Sherman MD [address] [facility], [address], [place], [address], [facility] Shidonni [facility] [email or web address] 08:32:06 23612 terbinafi ne medicatio n Not available Not available Not available 01/07/2023 90008 RxNorm Wendy Sherman MD [address] [facility], [facility] [address], [place], [address] , [facility] 3 08:32:27 Medications Name Sig Start Date Stop Date Status Note LastModified by Organization Details LastModified Time cyclobenzap rine 10 mg tablet Take 1 tablet 3 times a day by oral route as needed. active Not Available Not Available No t Available azithromyci n 250 mg tablet TAKE 2 TABLETS (500 MG) BY ORAL ROUTE ONCE DAILY FOR 1 DAY THEN 1 TABLET (250 MG) BY ORAL ROUTE ONCE DAILY FOR 4 DAYS 03/18 completed Not Available Not Available Not Available fluconazole 150 mg tablet TAKE 1 TABLET BY MOUTH DAILY FOR 1 DAY 05/18 completed Not Available Not Available Not Available benzonatate 200 mg capsule Take 1 capsule 3 times a day by oral route as needed. 03/18 completed Not Available Not Available Not Available prednisone 20 mg tablet Take 2 tablets every day by oral route for 5 days. 03/18 completed Not Available Not Available Not Available metronidazo le 500 mg tablet TAKE 4 TABLETS BY MOUTH EVERY DAY FOR 3 DAYS 05/18 completed Not Available Not Available Not Available ketorolac 30 mg/mL (1 mL) injection solution 1 ml IM x 1 03/18 completed Not Available Not Available Not Available cephalexin 500 mg capsule TAKE 1 CAPSULE BY MOUTH THREE TIMES DAILY FOR 10 DAYS 05/27 completed Not Available Not Available Not Available pantoprazol e 40 mg tablet,francisca yed release Take 1 tablet every day by oral route. 05/18 completed Not Available Not Available Not Available hydroxyzine HCl 25 mg tablet TAKE 1 TABLET BY MOUTH THREE TIMES DAILY NEEDED 05/18 completed Not Available Not Available Not Available ondansetron 4 mg disintegrat ing tablet DISSOLVE 1 TABLET ON THE TONGUE EVERY 8 HOURS FOR 3 DAYS 05/18 completed Not Available Not Available Not Available atomoxetine 40 mg capsule TAKE 1 CAPSULE BY MOUTH EVERY DAY 05/18 completed Not Available Not Available Not Available atomoxetine 60 mg capsule Take 1 capsule every day by oral route. 07/23 /2024 completed Not Available Not Available Not Available escitalopra m 5 mg tablet TAKE 1 TABLET BY MOUTH EVERY DAY 05/18 completed Not Available Not Available Not Available atomoxetine 80 mg capsule TAKE 1 CAPSULE BY MOUTH EVERY DAY 05/18 completed Not Available Not Available Not Available cyclobenzap rine 7.5 mg tablet TAKE 1 TABLET BY MOUTH THREE TIMES DAILY NEEDED active Not Available Not Available No t Available Vitals Date Recorded Body height Body mass index (BMI) Body weight Body temperature Heart rate Systolic blood pressure Diastolic blood pressure Provider Name and Address Organization Details Last Updated DateTime 3 172.72 cm 33.8 kg/m2 220002. 51 g 97 [degF] 88 /min 120 mm[Hg] 84 mm[Hg] Ruth Bazzi RN [place] [facility] 3 08:20:20 Date Recorded Body height Body mass index (BMI) Body weight Body temperature Heart rate Oxygen saturation Oxygen saturation in Arterial blood by Pulse oximetry Systolic blood pressure Diastolic blood pressure Provider Name and Address Organization Details Last Updated DateTime 3 172.72 cm 29.2 kg/m2 27551.7 4 g 97.2 [degF] 85 /min 99 % 99 % 106 mm[Hg] 74 mm[Hg] Dulce conrad CMA [facility] 3 15:31:30 Date Recorded Body height Body mass index (BMI) Body weight Body temperature Heart rate Oxygen saturation Oxygen saturation in Arterial blood by Pulse oximetry Systolic blood pressure Diastolic blood pressure Provider Name and Address Organization Details Last Updated DateTime 4 172.72 cm 34.4 kg/m2 438849. 88 g 97.5 [degF] 81 /min 98 % 98 % 124 mm[Hg] 74 mm[Hg] Janelle Cummins RN [facility] 4 08:10:39 Date Recorded Body height Body mass index (BMI) Body weight Provider Name and Address Organization Details Last Updated DateTime 06/01/2024 172.72 cm 34.2 kg/m2 789907.28 g Naomi Perdomo CNA [facility] 06/01/2024 09:06:55 Date Recorded Body height Body mass index (BMI) Body weight Provider Name and Address Organization Details Last Updated DateTime 07/21/2024 172.72 cm 34.2 kg/m2 059649.28 g Naomi Perdomo CNA [facility] 07/21/2024 14:25:53 Social History Question Answer Notes LastModified by Organizat ion Details LastModified Time Tobacco Smoking Status Never Smoker Wendy Sherman MD [address] [facility], [facility] [address], [place], [address], [facility] 01/07/2023 08:34:09 What Is Your Level Of Alcohol Consumption? Occasional [email or web address] Information not available 06/01/2024 What Was The Date Of Your Most Recent Tobacco Screening? 01/07/2023 [email or web address] Information not available 01/07/2023 Sex: Unknown Functional Status None recorded. Mental Status None recorded. Family History Relationship Description Onset Age of this Age Resolved Age Notes LastModified by Organization Details LastModified Time Mother Essential hypertension [email or web address] Not available 08:32:55 Mother Attention deficit hyperactivit y disorder [email or web address] Not available 01/07 08:33:03 Father Attention deficit hyperactivit y disorder [email or web address] Not available 01/07 08:33:39 Notes:Mom is adopted Medical History No medical history recorded. Gynecological History Statement/Question Response Menses Monthly Y Duration of Flow (days) 30 Date of LMP 12/25/2022 Obstetrics History GPAL:G 0 P 0 0 0 0 Past Encounters Encounter ID Performer Location Encounter Start Date Encounter Closed Date Diagnosis/Indication Diagnosis SNOMED-CT Code Diagnosis ICD10 Code Diagnosis Note [id number] Wendy Sherman MD [facility] Primary Care [facility] [address] [facility] [address] [place] [address] 01/07/2023 08:08:23 01/07/2023 08:59:06 Weight gain 5819747 R63.5 check labsconsid er med for weight loss if normal History of bariatric surgical procedure [id number] Z98.84 check labs Chronic diarrhea 2380599 09 K52.9 persistent lifelong diarrhea with no previous evaluation GI referral given Attention deficit hyperactivity disorder [id number] F90.9 trial of atomoxetin e 40 mg daily with foodhas failed bupropion due to med s/ereviewe d potential med s/ef/u in 4 weeks or sooner if needed [id number] Wendy Sherman MD [facility] Primary Care [address] [place] [address] 02/10/2023 08:23:11 02/10/2023 08:56:15 Attention deficit hyperactivity disorder 029627745 F90.9 trial of atomoxetin e 40 mg daily with food when her nausea/lourdes d is improvedha s failed bupropion due to med s/ereviewe d potential med s/ef/u in 4 weeks or sooner if needed Gastroesop hageal reflux disease without esophagitis 551019455 K21.9 Avoid greasy/spi cy/acidic foodEat small, frequent mealsCall if any worsening symptoms including increased pain or blood in stools or if symptoms do not resolve in 14 dayspantop razole 40 mg dailyfamot idine 40 mg po qhsGI referral had already been givenf/u in 4 weeks or sooner if needed Thoracic back pain 56053 8004 M54.6 supportive careketoro lac 30 mg IM x 1call/retu rn if no improvemen t in 1-2 days or sooner if neededrevi ewed s/s that warrant urgent/chelo rgent eval in meantime [id number] Wendy Sherman MD [facility] Primary Care [address] [place] [address] 03/18/2023 08:00:19 03/18/2023 10:56:54 Gastroesophageal reflux disease without esophagitis 312511731 K21.9 Avoid greasy/spi cy/acidic foodEat small, frequent mealsCall if any worsening symptoms including increased pain or blood in stools or if symptoms do not resolve in 14 dayspantop razole 40 mg dailyfamot idine 40 mg po qhsGI referral had already been givenf/u in 4 weeks or sooner if needed update 03/18/23: plan to continue pantoprazo le for 1 year Attention deficit hyperactivity disorder [id number] F90.9 has failed bupropion due to med s/eimprove d but not yet to baseline, increase atomoxetin e 60 mg daily Vitamin D deficiency 347 81336 E55.9 vitamin d3 2000 IU once daily Iron defic iency anemia 60962365 D50.9 cannot tolerate oral ironrepeat labs in 3 months [id number] CHRISTIAN Hylton [facility] Primary Care [facility] [address] [employer] [facility] [address] [place] [address] 05/13/2023 15:21:15 05/13/2023 17:26:44 Mixed anxiety and depressive disorder 807091689 F41.8 Has tried celexa in the past, but would like to go with another medication . Will try lowest dose of lexapro for maintenanc e. Wants something that works prn as well that is not stimulatin g or habit forming. Will trial hydroxyzin e [id number] CHRISTIAN Hylton [facility] Primary Care [facility] [address] [facility] [address] [facility] [place] [address] 05/18/2024 08:00:16 05/18/2024 08:23:00 Pain of left shoulder joint [id number] 6218588 M25.512 pain noted to left shoulder since recently going swimming (exac old rugby injuries)n oting weakness/d ecreased ROM since the incidentmi ssed work yesterday d/t painwent to last Friday and was given toradol injection with little reliefuses heat/ice/m assage gun with [id number] Gregory García MD [facility] [address] [place] [address] 06/01/2024 08:57:09 06/01/2024 09:52:36 Pain of left shoulder joint 2982068720 3811701 M25.512 Rupture of rotator cuff of left shoulder 5314090150 2473648 M75.404 [id number] Gregory García MD [facility] [address] [place] [address] 07/21/2024 14:19:59 07/21/2024 14:40:30 Rupture of rotator cuff of left shoulder 8420019945 0948975 M75.102 Pain of le ft shoulder joint 6464775731 8684961 M25.512 Health Concerns Section Related Observation LastModified by Organization Detai ls LastModified Time None Recorded Concern Status LastModified by Organization Details LastModified Time None Recorded Advance Directives Directive None Recorded Payers Encounter Date Sequence Insurance Name Policy Number Policy Herrera Covered Member ID Herrera Member ID Guarantor Name 03/18/2023 1 [place] [id number] Gaviota Deedee [id number] Gaviota Deedee 05/13/2023 1 [place] [id number] Gaviota Deedee [id number] Gaviota Deedee 05/18/2024 1 [place] [id number] Gaviota Deedee [id number] Gaviota Deedee 06/01/2024 1 [place] [id number] Gaviota Deedee [id number] Gaviota Deedee 07/21/2024 1 [place] [id number] Gaviota Deedee [id number] Gaviota Deedee Notes Date Note Type Note Provider Name and Address Organization Details Recorded Time 03/18/2023 text/html Here to anahi mendoza, had gastric sleeve in 2019. Her weight did go down to 140, her preferred weight is 170/180. Over the past 18 months or so, she has not changed any habits but her weight has gone back up to 240 and stayed there. She is still eating small portions. She is very frustrated with her weight gain and inability to lose weight. She has long h/o degenerative disk disease and her back is starting to hurt more consistently with her weight gain which is limiting her ability to exercise. Has long h/o diarrhea, has never had solid bowel movements. She has cramping pain and has watery stools 4-5 times per day. This is not associated with her surgery, she notes this has happened her whole life. Dx with ADHD as a child, she has managed it without medication as an adult. She works from home on the computer. She has h/o hyperfocus but finds herself distractable and it is affecting her home and work life. She struggles with impulse control, she repeats what people say and finds it is hard to control this impulse. She has not taken any medication even as a child. Her brother, mother and father all with ADHD. Her normal coping techniques are not as effective. Bupropion did give her kunal when she took it during her divorce. update 02/10/23: Here to f/u, she was not able to take atomoxetine due to her frequent nausea. She is having nausea, heartburn, down 4 pounds. No blood in stools. She is taking tums daily but not improving. No other otc meds. Has h/o gastric sleeve surgery and family h/o GERD. Even water can set off her nausea. threw her back out last night-has been working in the garden and then felt frozen in pain getting off the toilet. Pain mostly around right shoulder blade, toradol shot is generally very helpful. update 03/18/23: Abd pain is improved, she is able to eat a healthy diet and tolerating it well. Her weight is down intentionally. She is tolerating atomoxetine 40 mg daily and has noticed some improvement but it is not as effective as it was in the beginning. She is running and her focus is improved. Wendy Sherman MD [address], [place], [address], [place] 03/25/2023 09:53:22 05/13/2023 text/html PT has been struggling with anxiety for . Has many stressors in her life, but none more than before. Has lost 6 lbs in the last week. Last time she felt this way was when she lost her brother 4 years ago. interfering with her with her job and daily life now. Troubles with sleep. Decreased appetite. Believes that her atomoxetine is the cause for her anxiety exacerbation. Would like to stop the medication. Has been utilizing her work's EAP program. Believes this has been helping CHRISTIAN Hylton [address] [place], [place], [address], [place] 05/13/2023 16:23:10 05/18/2024 text/html pt is here for left shoulder pain CHRISTIAN Hylton [address], [place], [place], [address], [place] - [facility] 05/18/2024 09:27:26 OBGyn Episode No OBEpisode recorded.
--- OUTSIDE RECORDS SUMMARY | 2024-12-01 09:54 | XMS_ITS | Encounter Summary ---
Author Organization [employer] Address [address] [place] [address] Care Team Providers Care Allied Health Teacher Name Role Phone Chelsie Pleitez MD Primary Care Provider [phone] Encounter Details Date Type Department Care Team (Late st Contact Info) Description 01/24/2020 Digital Self COVID-1 9 Monitoring [place] ABSTRACTION Provider, Abstract NO ADDRESS ON FILE Social History Tobacco Use Types Packs/Day Years Used Date Smoking Tobacco: Never Smokeless Tobacco: Never Alcohol Use Standard Drinks/Week Comments Yes 1 (1 standard drink = 0.6 oz pur e alcohol) socially Comments No Sex and Gender Information Value Date Recorded Sex Assigned at Not on file Legal Sex Female 4:46 AM HR SPECIALIST Gender Identity Not on file Sexual Orientation [...] documented as of this encounter Care Teams Allied Health Teacher Relationship Specialty Start [place] [address] [place] [address] PCP - General Internal Medicine 09/01/14 documented as of this encounter
--- OUTSIDE RECORDS SUMMARY | 2024-12-01 09:54 | XMS_ITS | Clinical Summary ---
Author Organization [facility] Address [address] [place] [address] Care Team Providers Care Tooler Name Role Phone Chelsie Pleitez MD Primary Care Provider [phone] Allergies Active Allergy Reactions Criticality Noted Date Comments Antifungal - Imidazole Abdominal Pain High 8 Burning abdominal pain with all antifungals Nickel Rash Medium 06/21/2015 Medications buPROPion HCl (WELLBUTRIN XL) 300 mg Extended Release 24 hour tabletIndicatio ns:Situational mixed anxiety and depressive disorder Take 1 Tablet (300 mg) by mouth daily legend maker. 90 Tablet 3 8 Active buPROPion HCl (WELLBUTRIN XL) 150 mg Extended Release 24 hour tabletIndicatio ns:Situational mixed anxiety and depressive disorder Take 1 Tablet (150 mg) by mouth daily legend maker Take with 300 mg tablet. 90 Tablet 9 Active meclizine (ANTIVERT) 25 mg tabletIndicatio ns:Near syncope,Dizzine ss Take 0.5-1 Tablets (12.5-25 mg) by mouth 3 times daily as needed for Dizziness. 30 Tablet 9 Active diphenhydrAMINE (BENADRYL) 25 mg capsule Take 1 Capsule (25 mg) by mouth daily at bedtime. 9 Active famotidine (PEPCID) 20 mg tablet Take 1 Tablet (20 mg) by mouth 2 times daily. 9 Active Additional Information Patient taking differently:20 mg OralDAILY, Reported on 09/10/2019 propranolol (INDERAL) 10 mg tablet Take 0.5 Tablets (5 mg) by mouth 2 times daily. 30 Tablet 2 9 Active clonazePAM (KlonoPIN) 1 mg tablet Take 1 mg by mouth 2 times daily as needed for Anxiety. Active codeine-guaiFEN esin (Cheratussin AC) 10-100 mg/5 mL LiquidIndicatio ns:Cough Take 10 mL by mouth every 4 hours as needed for Cough. 240 mL 0 Active Active Problems Problem Noted Date Diagnosed Date Vasovagal syncope 08/05/2019 Pilonidal cyst with abscess 05/06/2019 Gastroesophageal reflux disease without esophagi tis 06/24/2018 Anxiety and depression 06/24/2018 Situational mixed anxiety and depressive disorde r 08/12/2016 C. difficile colitis 07/10/2015 S/P lumbar fusion 07/10/2015 Low back pain with sciatica 07/10/2015 Lumbar spondylosis 07/03/2015 PCOS (polycystic ovarian syndrome) 03/17/2014 Overview (03/17/2014): Dr. Choi Ovarian tumor (benign) 03/17/2014 Leukocytosis Orthostatic syncope Abdominal fluid collection Resolved Problems Problem Noted Date Diagnosed Date Resolved Date Elevated BP without diagnosis of hypertension 06/24/20 18 08/17/2019 Immunizations Immunization Administration Dates Next Due (ADACEL/BOOSTRIX)(10 YR UP) TDAP VACCINE, 0.5ML, IM 08/12/2016 (TDVAX)(7 YRS UP) TETANUS AN D DIPHTHERIA TOXOIDS, ADSORBED (2 LF OF TETANUS TOXOID AND 2 LF OF DIPHTHERIA TOXOID), 0.5ML (PF), IM 10/27/2007 INFLUENZA VACCINE QUADRIVALE NT 3 YR UP PF IM 09/16/2018,08/21/2017,08/12/2016,2013 INFLUENZA VACCINE QUADRIVALE NT 6 MOS UP PF IM 08/19/2019 Influenza Seasonal Unspecifi ed Formulation IM 07/27/2013 Family History Medical History Relation Name Comments Hypertension Brother Unknown Father Hypertension Mother Heart Disease Paternal Grandmother Hypertension Sister Relation Name Status Comments Brother Father Alive Mother Alive Paternal Grandfather Paternal Grandmother Alive Sister Alive Social History Tobacco Use Types Packs/Day Years Used Date Smoking Tobacco: Never Smokeless Tobacco: Never Alcohol Use Standard Drinks/Week Comments Yes 1 (1 standard drink = 0.6 oz pur e alcohol) socially Comments No Sex and Gender Information Value Date Recorded Sex Assigned at Not on file Legal Sex Female 4:46 AM FISH HATCHERY 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 Gender Identity Not on file Sexual Orientation Not on file Occupation Industry Job Start Date Job End Date Not on file Not on file Not on file Not on file Last Filed Vital Signs Vital Sign Reading Time Taken Comments Blood Pressure 108/66 08/31/2019 11:37 AM FISH HATCHERY LABORER Pulse 67 08/31/2019 11:37 AM FISH HATCHERY LABORER Temperature 36.4 ??C (97.5 ??F) 08/17/2019 8:28 AM CD T Respiratory Rate 18 08/06/2019 4:11 PM CDT Oxygen Saturation 98% 08/31/2019 11:37 AM FISH HATCHERY LABORER Inhaled Oxygen Concentration - - Weight 73 kg (161 lb) 09/10/2019 2:11 PM FISH HATCHERY LABORER Height 175.3 cm (5' 9 ) 09/10/2019 2:11 PM FISH HATCHERY LABORER Body Mass Index 23.78 09/10/2019 2:11 PM FISH HATCHERY LABORER Plan of Treatment Health Maintenance Due Date Last Done Comments HEPATITIS B VACCINES (1 of 3 - 19+ 3-dose series) 01/27/2003 CERVICAL CANCER SCREENING 10/27/2014 10/27/2011 BREAST CANCER SCREENING 2024 INFLUENZA VACCINE (#1) 2024 , 07/22/2019, 09/16/2018, Additional history exists DTAP/TDAP/TD VACCINES (2 - Td or Tdap) 08/12/2026 08/12/2016, 10/27/2007 HPV VACCINES Aged Out No longer eligi ble based on patient's age to complete this topic Medical Devices Implanted Type Area Transportation Aid Device Identifier Shelf Expiration Date Model / Serial / Lot Infuse Protein Kit [id number] - [id number] Implanted:Qty: 1 on 06/29/2015 by Maryjo Choi MD at [facility] Biological [employer]OR [employer] 03/26/2016 [id number] / / [id number] Seamguard Endogia 60 Prpl [id number] - [id number] Implanted:Qty: 3 on 06/24/2018 by Anurag Lee MD at [facility] Biological N/A: Stomach [employer] 02/23/2021 [id number] / / [id number] Seamguard Endogia 60 Blck [id number] - [id number] Implanted:Qty: 2 on 06/24/2018 by Anruag Lee MD at [facility] Biological N/A: Stomach [employer] 02/23/2021 [id number] / / [id number] Capstone Spinal System Implanted:Qty: 1 on 06/29/2015 by Maryjo Choi MD at [facility] Cage N/A: Spine Lumbar [employer] - SPINAL fka KYPHON 11/20/2019 [id number] / / [id number] Solera Sextant Implanted:Qty: 2 on 06/29/2015 by Maryjo Choi MD at [facility] [place] N/A: Spine Lumbar [employer] - SPINAL fka KYPHON [id number] / / Description:sterilized jun 28, 2015 load 19 Screw Solera Ma 6.5x35mm [id number] - Ssterilized Jun 28, 2015 Load 19 Implanted:Qty: 2 on 06/29/2015 by Maryjo Choi MD at [facility] Screw N/A: Spine Lumbar [employer] SOF[employer]OR [employer]ANEK [id number] / STERILIZED JUN 28, 2015 LOAD 19 / Screw Solera Ma 6.5x45mm [id number] - Ssterilized Jun 28, 2015 Load 19 Implanted:Qty: 2 on 06/29/2015 by Maryjo Choi MD at [facility] Screw N/A: Spine Lumbar [employer] SOFAMOR [employer]ANEK [id number] / STERILIZED JUN 28, 2015 LOAD 19 / Set Screw Sextant Break-Off [id number] - Ssterilized Jun 28, 2015 Load 19 Implanted:Qty: 4 on 06/29/2015 by Maryjo Choi MD at [facility] Screw N/A: Spine Lumbar [employer] SOFAMOR DANEK [id number] / STERILIZED JUN 28, 2015 LOAD 19 / Sealant Floseal W/ Adptr 10ml [id number] - [id number] Implanted:Qty: 1 on 06/29/2015 by Maryjo Choi MD at [facility] Sealant N/A: Spine Lumbar DURBIN- BIOSCIENCE 08/26/2016 [id number] / / [id number] Insurance FOREIGN SERVICE BENEFIT PLAN POS [employer] Advance Directives For more information, please contact: [phone] Documents on File Type Date Recorded Patient Health Insurance Agent Expl anation Advance Directive POA 07/05/2015 12:18 PM A dvance Directive POA Advance Directive Living Will 06/30/2015 12:18 PM * Full Code (Latest Code Status on File) Date Activated Date Inactivated Comments 08/05/2019 4:17 PM 08/06/2019 8:29 PM * Full Code Date Activated Date Inactivated Comments 05/14/2019 9:05 AM 05/14/2019 3:33 PM * Full Code Date Activated Date Inactivated Comments 05/14/2019 8:18 AM 05/14/2019 9:05 AM * Full Code Date Activated Date Inactivated Comments 06/24/2018 9:58 AM 06/25/2018 4:52 PM * Full Code Date Activated Date Inactivated Comments 06/24/2018 6:56 AM 06/24/2018 9:57 AM Care Teams Tooler Relationship Specialty [place] [address] [place] [address] PCP - General Internal Medicine 09/01/14
--- OUTSIDE RECORDS SUMMARY | 2024-12-01 09:54 | XMS_ITS | Encounter Summary ---
Author Organization [employer] Address [address] [place] [address] Care Team Providers Care Cut Out Operator Name Role Phone Chelsie Pleitez MD Primary Care Provider [phone] Encounter Details Date Type Department Care Team [...] on file Legal Sex Female 4:46 AM PODIATRIST ORTHOPEDIC Gender Identity Not on file Sexual Orientation [...] documented as of this encounter Care Teams Cut Out Operator Relationship Specialty [place] [address] [place] [address] PCP - General Internal Medicine 09/01/14 documented as of this encounter
--- OUTSIDE RECORDS SUMMARY | 2024-12-01 09:54 | XMS_ITS | Encounter Summary ---
Author Organization [employer] Address 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
--- OUTSIDE RECORDS SUMMARY | 2024-12-01 09:54 | XMS_ITS | Encounter Summary ---
Author Organization [employer] Address [address] [place] [address] Care Team Providers Care Railroad Operator Name Role Phone Chelsie Pleitez MD Primary Care Provider [phone] Encounter Details Date Type Department Care Team (Late st Contact Info) Description 01/22/2020 Digital Self COVID-1 9 Monitoring [facility] ABSTRACTION [...] on file Legal Sex Female 4:46 AM MS SQL DBA Gender Identity Not on file Sexual Orientation [...] documented as of this encounter Care Teams Railroad Operator Relationship Specialty Start [place] [address] [place] [address] PCP - General Internal Medicine 09/01/14 documented as of this encounter
--- OUTSIDE RECORDS SUMMARY | 2024-12-01 09:54 | XMS_ITS | Encounter Summary ---
Author Organization [employer] Address [address] [place] [address] Care Team Providers Care Chlorobutadiene Scrubber Operator Name Role Phone Chelsie Pleitez MD Primary Care Provider [phone] Encounter Details Date Type Department Care Team (Late st Contact Info) Description 01/20/2020 Digital Self COVID-1 9 Screening [facility] ABSTRACTION [...] on file Legal Sex Female 4:46 AM STAFF HOME THERAPY RN Gender Identity Not on file Sexual Orientation [...] documented as of this encounter Care Teams Chlorobutadiene Scrubber Operator Relationship Specialty Start [place] [address] [place] [address] PCP - General Internal Medicine 09/01/14 documented as of this encounter
--- OUTSIDE RECORDS SUMMARY | 2024-12-01 09:54 | XMS_ITS | Encounter Summary ---
Author Organization [employer] Address [address] [place] [address] Care Team Providers Care Physician Non Invasive Cardiologist Name Role Phone Chelsie Pleitez MD Primary Care Provider [phone] Encounter Details Date Type Department Care Team [...] on file Legal Sex Female 4:46 AM LOAD DROPPER Gender Identity Not on file Sexual Orientation [...] documented as of this encounter Care Teams Physician Non Invasive Cardiologist Relationship Specialty Start [place] [address] [place] [address] PCP - General Internal Medicine 09/01/14 documented as of this encounter
--- OUTSIDE RECORDS SUMMARY | 2024-12-01 09:54 | XMS_ITS | Clinical Summary ---
Author Organization [facility] Address [address] [place] [address] Care Team Providers Care Coal Tower Operator Name Role Phone No, Physician Unavailable Pat Ramírez DO Primary Care Provider [phone] Allergies Active Allergy Reactions Criticality Noted Date Comments Antifungal - Imidazole Stomach upset High 06/24/2018 Burning abdominal pain with all antifungals Nickel Rash Medium 06/21/2015 Terbinafine Other (See comments) Low 07/02/2024 Medications cyclobenzaprine (FLEXERIL) 7.5 mg tablet Take 1 tablet (7.5 mg total) by mouth 3 (three) times a day as needed Active Active Problems Problem Noted Date Diagnosed Date Sciatica 11/24/2013 Immunizations Name Administration Dates Next Due Hep A / Hep B 11/22/2011 Hep B Vaccine 06/08/2008,05/12/2008 Influenza, Quadrivalent, Spl it, Preservative Free, Intramuscular 09/25/2022,08/19/2019,09/16/2018,08/21,08/12/2016,09/01/2014 Influenza, Trivalent, IM (MDV) 07/27/2013 Influenza, Unspecified 08/19/2023(Deferred: Chari ent Refused) Pfizer SARS-CoV-2 Monovalent Vaccination (12+ Yrs) PURPLE 02/28/2021,01/17/2021 Td, adsorbed 10/27/2007,03/01/1999 Tdap 08/12/2016 Surgical History Surgery Date Site/Laterality Comments SC EXPLORATORY LAPAROTOMY CE LIOTOMY W/WO BIOPSY SPX Exploratory Laparotomy - with excision of ovarian right cysts in 2001 (Added by TW Conv) HIP SURGERY Hip Surgery - excision lipoma left hip 2008 (Added by TW Conv) BACK SURGERY Back Surgery - excision cyst on back 2001 (Added by TW Conv) SPINAL FUSION GASTRECTOMY sleeve DILATION AND CURETTAGE OF UTERUS CHOLECYSTECTOMY Medical History Medical History Date Comments Personal history of other di seases of the female genital tract History of polycystic ovaria n syndrome - (Added by TW Conv) Anxiety Depression ADHD (attention deficit hype ractivity disorder) Family History Medical History Relation Name Comments Anxiety disorder Brother major depressive Brother ADD / ADHD Father Depression Father Suicide Completion Father ADD / ADHD Mother Anxiety disorder Mother Skin cancer Mother Anxiety disorder Sister Relation Name Status Comments Brother Father Mother Sister Social History Tobacco Use Types Packs/Day Years Used Date Smoking Tobacco: Never Smokeless Tobacco: Never AUDIT-C Answer Date Recorded Q1: How often do you have a drink containing alc ohol? Monthly or less 07/02/2024 Q2: How many drinks containi ng alcohol do you have on a typical day when you are drinking? 1 or 2 07/02/2024 Q3: How often do you have si x or more drinks on one occasion? Never 07/02/2024 PHQ-2 Answer Date Recorded PHQ-2 Total Score (If total score is 3 or more points, staff should administer the PHQ-9) 0 07/02/2024 Personal Safety Answer Date Recorded Getting School Help Needed Not on file 01/10 Comments Unknown Sex and Gender Information Value Date Recorded Sex Assigned at Not on file Legal Sex Female 12:57 PM HEALTH AND FITNESS PROFESSOR Gender Identity Not on file Sexual Orientation Not on file Obstetrics History Last Filed Vital Signs Vital Sign Reading Time Taken Comments Blood Pressure 101/60 07/02/2024 8:09 AM CDT Pulse 78 07/02/2024 8:09 AM CDT Temperature 36.6 ??C (97.9 ??F) 07/02/2024 8:09 AM CD T Respiratory Rate 18 07/02/2024 8:09 AM CDT Oxygen Saturation 98% 07/02/2024 8:09 AM CDT Inhaled Oxygen Concentration - - Weight 103.9 kg (229 lb) 07/02/2024 8:09 AM CDT Height 172.7 cm (5' 8 ) 07/02/2024 8:09 AM CDT Body Mass Index 34.82 07/02/2024 8:09 AM CDT Plan of Treatment Health Maintenance Due Date Last Done Comments Breast Cancer Screening-Mammogram 1984 Cervical Cancer Screening 1984 Hepatitis C Screening 1984 Varicella Vaccines (1 of 2 - 13+ 2-dose series) 01/27/1997 Covid-19 Vaccine ( season) 2024 09/25/2022, 02/28/2021, 01/17/2021 Influenza Vaccine (#1) 2024 , 08/19/2019, 09/16/2018, Additional history exists Depression Screening 07/02/2025 07/02/2024 Regular Well Visit/Exam 18-64 07/02/2025 07/02/2024 DTaP/Tdap/Td Vaccine (2 - Td or Tdap) 08/12/2026 08/12/2016, 10/27/2007, 03/01/1999 HPV Vaccines Aged Out No longer eligi ble based on patient's age to complete this topic Pneumococcal vaccine <65 Aged Out No longer eligible based on patient's age to complete this topic Insurance [email or web address] OOS Care Teams Coal Tower Operator Relationship Specialty Start Date End Date Pat Ramírez DO [address] [facility] [address] [address] PCP - General Family Medicine 06/24/24 No, Physician 05/11/24
--- OUTSIDE RECORDS SUMMARY | 2024-12-01 09:54 | XMS_ITS | Encounter Summary ---
Author Organization [employer] Address 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
--- OUTSIDE RECORDS SUMMARY | 2024-12-01 09:54 | XMS_ITS | Encounter Summary ---
Author Organization [facility] Address [address] [place] [address] Care Team Providers Care Vocational Rehabilitation Specialist Name Role Phone Chelsie Pleitez MD Primary Care Provider [phone] Encounter Details Date Type Department Care Team (Late st Contact Info) Description 07/06/[address] [phone] Anurag Lee MD [address] [place] [address] Social History Tobacco Use Types Packs/Day Years Used Date Smoking Tobacco: Never Smokeless Tobacco: Never Alcohol Use Standard Drinks/Week Comments Yes 1 (1 standard drink = 0.6 oz pur e alcohol) Social alcohol intake Comments No Sex and Gender Information Value Date Recorded Sex Assigned at Not on file Legal Sex Female 4:46 AM WATER RESOURCE PROJECT 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 Gender Identity Not on file Sexual Orientation Not on file Occupation Industry Job Start Date Job End Date Not on file Not on file Not on file Not on file documented as of this encounter Plan of Treatment Not on file documented as of this encounter Visit Diagnoses Not on filedocumented in this encounter Additional Health Concerns Infection Onset Date Last Indicated Resolved Time R/O COVID-19 01/21/2020 01/21/2020 01/26/2020 6:51 AM CDT documented as of this encounter Care Teams Vocational Rehabilitation Specialist Relationship Specialty [place] [address] [place] [phone] PCP - General Internal Medicine 09/01/14 documented as of this encounter
--- OUTSIDE RECORDS SUMMARY | 2024-12-01 09:54 | XMS_ITS | Encounter Summary ---
Author Organization [employer] Address [address] [place] [address] Care Team Providers Care Home Security Alarm Installer Name Role Phone Chelsie Pleitez MD Primary Care Provider [phone] Encounter Details Date Type Department Care Team (Late st Contact Info) Description 01/25/2020 Digital Self COVID-1 9 Monitoring STL ABSTRACTION [...] on file Legal Sex Female 4:46 AM MARKETING COPYWRITER Gender Identity Not on file Sexual Orientation [...] documented as of this encounter Care Teams Home Security Alarm Installer Relationship Specialty Start [place] [address] [place] [address] PCP - General Internal Medicine 09/01/14 documented as of this encounter
--- OUTSIDE RECORDS SUMMARY | 2024-12-01 09:54 | XMS_ITS | Encounter Summary ---
Author Organization [employer] Address [address] [place] [address] Care Team Providers Care Charge Entry Clerk Name Role Phone Chelsie Pleitez MD Primary Care Provider [phone] Encounter Details Date Type Department Care Team (Late st Contact Info) Description 01/21/2020 Digital Self COVID-1 9 Monitoring STL ABSTRACTION [...] on file Legal Sex Female 4:46 AM CABLE SPLICER ASSISTANT Gender Identity Not on file Sexual Orientation [...] documented as of this encounter Care Teams Charge Entry Clerk Relationship Specialty Start [place] [address] [place] [address] PCP - General Internal Medicine 09/01/14 documented as of this encounter
--- OUTSIDE RECORDS SUMMARY | 2024-12-01 09:54 | XMS_ITS | Encounter Summary ---
Author Organization [employer] Address [address] [place] [address] Care Team Providers Care Measurement And Sensing Technician Name Role Phone Chelsie Pleitez MD Primary Care Provider [phone] Encounter Details Date Type Department Care Team (Late st Contact Info) Description 12/09/1998 Outpatient Historical [facility] Felicia Knet MD [address] [place] [address] [place] [address] Social History Tobacco Use Types Packs/Day Years Used Date Smoking Tobacco: Never Assessed Comments Unknown Sex and Gender Information Value Date Recorded Sex Assigned at Not on file Legal Sex Female 4:46 AM ELECTRONIC SENSING EQUIPMENT ASSEMBLER Gender Identity Not on file Sexual Orientation Not on file documented as of this encounter Plan of Treatment Not on file documented as of this encounter Visit Diagnoses Not on filedocumented in this encounter Additional Health Concerns Infection Onset Date Last Indicated Resolved Time C Diff Comment:07/09/2015 07/10/2015 07/10/2015 06/23/2018 3:05 PM C DT R/O COVID-19 01/21/2020 01/21/2020 01/26/2020 6:51 AM CDT documented as of this encounter Care Teams Measurement And Sensing Technician Relationship Specialty [place] [address] [place] [address] PCP - General Internal Medicine 09/01/14 documented as of this encounter
--- OUTSIDE RECORDS SUMMARY | 2024-12-01 09:54 | XMS_ITS | Encounter Summary ---
Author Organization [employer] Address [address] [place] [address] Care Team Providers Care Executive Assistant Name Role Phone Chelsie Pleitez MD Primary Care Provider [phone] Encounter Details Date Type Department Care Team [...] on file Legal Sex Female 4:46 AM GUARD DRIVER Gender Identity Not on file Sexual Orientation [...] documented as of this encounter Care Teams Executive Assistant Relationship Specialty Start [place] [address] [place] [address] PCP - General Internal Medicine 09/01/14 documented as of this encounter
--- OUTSIDE RECORDS SUMMARY | 2024-12-01 09:54 | XMS_ITS | Referral Summary ---
Author Organization [facility] Address [address] [place] [address] Care Team Providers Care Oracle E Business Developer Name Role Phone No, Physician Unavailable Pat Ramírez DO Primary Care Provider [phone] Allergies Active Allergy Reactions Criticality Noted Date [...] PURPLE 02/28/2021,01/17/2021 Td, adsorbed 10/27/2007,03/01/1999 Tdap 08/12/2016 Social History Tobacco Use Types Packs/Day Years [...] on file Legal Sex Female 12:57 PM CANDY DEPARTMENT MANAGER Gender Identity Not on file Sexual Orientation Not on file Last Filed Vital Signs [...] 07/02/2024 8:09 AM CDT Plan of Treatment Not on file Insurance [employer] OOS Care Teams Oracle E Business Developer Relationship Specialty Start Date End Date Pat Ramírez DO [address] [facility] [address] [place] [address] PCP - General Family Medicine 06/24/24 No, Physician 05/11/24
[2024-12-01 10:46] VITALS: BP 126/74; PULSE 85; O2SAT 100
[2024-12-01 10:51] VITALS: BP 126/74; PULSE 85; O2SAT 98
[2024-12-01 11:01] LABS: Basophils Absolute Auto 0.1 K/mm3 (0.0-0.1); Eosinophils Absolute Auto 0.2 K/mm3 (0-0.3); Eosinophils Percent Auto 2.6 % (0-4.4); Hematocrit 44.3 % (37.0-47.0); Hemoglobin 14.7 g/dL (12.0-15.0); Immature Granulocyte Absolute 0.02 K/mm3 (0.00-0.031); Immature Granulocyte Percent A 0.3 % (0-0.5); Immature Platelet Fraction Pct 3.7 % (0.9-11.2); Lymphocytes Absolute Auto 1.58 K/mm3 (0.9-3.2); Lymphocytes Percent Auto 22.7 % (18.3-44.2); Mean Corpuscular HGB Conc 33.2 g/dl (32-36); Mean Corpuscular Volume 96.5 fl (80-100); Mean Platelet Volume 10.1 fl (7.4-10.4); Monocytes Absolute Auto 0.4 K/mm3 (0.1-0.6); Monocytes Percent Auto 5.9 % (2.6-8.5); Neutrophils Absolute Auto 4.7 K/mm3 (1.3-6.7); Neutrophils Percent Auto 67.5 % (45.5-73.1); Platelet Count Result 129 k/mm3 (150-375); Red Blood Count 4.59 M/mm3 (4.2-5.4); Red Cell Distribution Width 14.3 % (11.5-14.5)
[2024-12-01 11:20] LABS: INR 1.1; Prothrombin Time 14.8 Seconds (11.1-14.7)
[2024-12-01 11:21] LABS: Partial Thromboplastin Time 32.4 Seconds (22.3-36.8)
[2024-12-01 11:54] LABS: Alanine Aminotransferase 70 U/L (6-35); Albumin Level 4.8 g/dL (3.5-5.1); Alkaline Phosphatase 129 U/L (38-126); Anion Gap 13 mmol/L (4-12); Aspartate Amino Transferase 123 U/L (14-36); Bilirubin,Total 1.2 mg/dL (0.2-1.3); Blood Urea Nitrogen 6 mg/dL (7-17); CRP 1.6 mg/dL (<1.0); Calcium 9.6 mg/dL (8.4-10.2); Carbon Dioxide 26 mmol/L (22-30); Chloride 100 mmol/L (98-107); Estimated CRCL calculation 142 ml/min; Estimated Glomerular Filt Rate > 60; Glucose 95 mg/dL (65-110); Sodium 139 mmol/L (137-145); Troponin I < 0.012 ng/mL (0.000-0.034)
[2024-12-01 12:22] LABS: Lactic Acid Reflex 1.1 mmol/L (0.7-2.0)
--- OUTSIDE RECORDS SUMMARY | 2024-12-01 13:21 | XMS_ITS | Encounter Summary ---
Author Organization [employer] Address [address] [place] [address] Care Team Providers Care Pension Agent Name Role Phone Chelsie Pleitez MD Primary Care Provider [phone] Encounter Details Date Type Department Care Team [...] on file Legal Sex Female 4:46 AM FIBERGLASS GRINDER Gender Identity Not on file Sexual Orientation [...] documented as of this encounter Care Teams Pension Agent Relationship Specialty Start [place] [address] [place] [phone] PCP - General Internal Medicine 09/01/14 documented as of this encounter
--- OUTSIDE RECORDS SUMMARY | 2024-12-01 13:21 | XMS_ITS | Encounter Summary ---
Author Organization [employer] Address [address] [place] [address] Care Team Providers Care Adult Educator Name Role Phone Chelsie Pleitez MD Primary Care Provider [phone] Encounter Details Date Type Department Care Team [...] on file Legal Sex Female 4:46 AM CONTRACTOR GENERAL ENGINEERING Gender Identity Not on file Sexual Orientation [...] documented as of this encounter Care Teams Adult Educator Relationship Specialty Start [place] [address] [place] [phone] PCP - General Internal Medicine 09/01/14 documented as of this encounter
--- OUTSIDE RECORDS SUMMARY | 2024-12-01 13:21 | XMS_ITS | Encounter Summary ---
Author Organization [employer] Address [address] [place] [address] Care Team Providers Care Package Worker Name Role Phone Chelsie Pleitez MD Primary Care Provider [phone] Encounter Details Date Type Department Care Team [...] on file Legal Sex Female 4:46 AM INCLUSION TEACHER Gender Identity Not on file Sexual Orientation [...] documented as of this encounter Care Teams Package Worker Relationship Specialty [place] [address] [place] [address] PCP - General Internal Medicine 09/01/14 documented as of this encounter
--- OUTSIDE RECORDS SUMMARY | 2024-12-01 13:21 | XMS_ITS | Clinical Summary ---
Author Organization [facility] Address [address] [place] [address] Care Team Providers Care Plant Associate Name Role Phone No, Physician Unavailable Pat Ramírez DO Primary Care Provider [phone] Allergies Active Allergy Reactions Criticality Noted Date [...] 08/12/2016 Surgical History Surgery Date Site/Laterality Comments [place] EXPLORATORY LAPAROTOMY CE LIOTOMY W/WO BIOPSY SPX [...] on file Legal Sex Female 12:57 PM STONE GLUER Gender Identity Not on file Sexual Orientation [...] patient's age to complete this topic Insurance [employer] OOS Care Teams Plant Associate Relationship Specialty Start Date End Date Pat Ramírez DO [address] [facility] [address] [address] PCP - General Family Medicine 06/24/24 No, Physician 05/11/24
--- OUTSIDE RECORDS SUMMARY | 2024-12-01 13:21 | XMS_ITS | Encounter Summary ---
Author Organization [employer] Address [address] [place] [address] Care Team Providers Care Credit Collection Specialist Name Role Phone Chelsie Pleitez MD Primary Care Provider [phone] Encounter Details Date Type Department Care Team [...] on file Legal Sex Female 4:46 AM HYDROLOGY TEACHER Gender Identity Not on file Sexual [...] documented as of this encounter Care Teams Credit Collection Specialist Relationship Specialty [place] [address] [place] [phone] PCP - General Internal Medicine 09/01/14 documented as of this encounter
--- OUTSIDE RECORDS SUMMARY | 2024-12-01 13:21 | XMS_ITS | Encounter Summary ---
Author Organization [employer] Address [address] [place] [address] Care Team Providers Care Garde Manger Name Role Phone Chelsie Pleitez MD Primary Care Provider [phone] Encounter Details Date Type Department Care Team (Late st Contact Info) Description 12/09/1998 Outpatient Historical HIS [facility] Felicia Kent MD [address] [place] [address] [place] [address] Social History Tobacco Use Types Packs/Day Years Used Date Smoking Tobacco: Never Assessed Comments Unknown Sex and Gender Information Value Date Recorded Sex Assigned at Not on file Legal Sex Female 4:46 AM EASTER BUNNY Gender Identity Not on file Sexual Orientation [...] documented as of this encounter Care Teams Garde Manger Relationship Specialty Start [place] [address] [place] [address] PCP - General Internal Medicine 09/01/14 documented as of this encounter
--- OUTSIDE RECORDS SUMMARY | 2024-12-01 13:21 | XMS_ITS | Clinical Summary ---
Author Organization [facility] Address [address] [place] [address] Care Team Providers Care Government Property Inspector Name Role Phone Chelsie Pleitez MD Primary Care Provider [phone] Allergies Active Allergy Reactions Criticality Noted Date Comments Antifungal - Imidazole Abdominal Pain High 8 Burning abdominal pain with all antifungals Nickel Rash Medium 06/21/2015 Medications buPROPion HCl (WELLBUTRIN XL) 300 mg Extended Release 24 hour tabletIndicatio ns:Situational mixed anxiety and depressive disorder Take 1 Tablet (300 mg) by mouth daily produce inspector. 90 Tablet 3 8 Active buPROPion HCl (WELLBUTRIN XL) 150 mg Extended Release 24 hour tabletIndicatio ns:Situational mixed anxiety and depressive disorder Take 1 Tablet (150 mg) by mouth daily produce inspector Take with 300 mg tablet. 90 Tablet [...] on file Legal Sex Female 4:46 AM FOOD TECHNOLOGIST Gender Identity Not on file Sexual Orientation Not on file Occupation Industry Job Start Date Job End Date Not on file Not on file Not on file Not on file Last Filed Vital Signs Vital Sign Reading Time Taken Comments Blood Pressure 108/66 08/31/2019 11:37 AM FOOD TECHNOLOGIST Pulse 67 08/31/2019 11:37 AM FOOD TECHNOLOGIST Temperature 36.4 ??C (97.5 ??F) 08/17/2019 8:28 AM CD T Respiratory Rate 18 08/06/2019 4:11 PM CDT Oxygen Saturation 98% 08/31/2019 11:37 AM FOOD TECHNOLOGIST Inhaled Oxygen Concentration - - Weight 73 kg (161 lb) 09/10/2019 2:11 PM FOOD TECHNOLOGIST Height 175.3 cm (5' 9 ) 09/10/2019 2:11 PM FOOD TECHNOLOGIST Body Mass Index 23.78 09/10/2019 2:11 PM FOOD TECHNOLOGIST Plan of Treatment Health Maintenance Due Date [...] this topic Medical Devices Implanted Type Area Box Office Clerk Device Identifier Shelf Expiration Date Model / Serial / Lot Infuse Protein Kit [id number] - [id number] Implanted:Qty: 1 on 06/29/2015 by Maryjo Choi MD at [facility] Biological [employer] SOFAMOR [employer]ANEK 03/26/2016 [id number] / / [id number] Seamguard Endogia 60 Prpl [id number] - [id number] Implanted:Qty: 3 on 06/24/2018 by Anurag Lee MD at [facility] Biological N/A: Stomach [employer] 02/23/2021 [id number] / / [id number] Seamguard Endogia 60 Blck [id number] - [id number] Implanted:Qty: 2 on 06/24/2018 by Anurag Lee MD at [facility] Biological N/A: Stomach [employer] 02/23/2021 [id number] / / [id number] Capstone Spinal System Implanted:Qty: 1 on 06/29/2015 by Maryjo Choi MD at [facility] Cage N/A: Spine Lumbar [employer] - SPINAL fka KYPHON 11/20/2019 [id number] / / [id number] Solera Sextant Implanted:Qty: 2 on 06/29/2015 by Maryjo Choi MD at [facility] [place] N/A: Spine Lumbar [employer] - SPINAL fka KYPHON [id number] / / Description:sterilized jun 28, 2015 load 19 Screw Solera Ma 6.5x35mm [id number] - Ssterilized Jun 28, 2015 Load 19 Implanted:Qty: 2 on 06/29/2015 by Maryjo Choi MD at [facility] Screw N/A: Spine Lumbar [employer] SOFAMOR DANEK [id number] / STERILIZED JUN 28, 2015 LOAD 19 / Screw Solera Ma 6.5x45mm [id number] - Ssterilized Jun 28, 2015 Load 19 Implanted:Qty: 2 on 06/29/2015 by Maryjo Choi MD at [facility] Screw N/A: Spine Lumbar [employer] SOFAMOR [employer]ANEK [id number] / STERILIZED JUN 28, 2015 LOAD 19 / Set Screw Sextant Break-Off [id number] - Ssterilized Jun 28, 2015 Load 19 Implanted:Qty: 4 on 06/29/2015 by Maryjo Choi MD at [facility] Screw N/A: Spine Lumbar [employer]- SOFAMOR DANEK [id number] / STERILIZED JUN 28, 2015 LOAD 19 / Sealant Floseal W/ Adptr 10ml [id number] - [id number] Implanted:Qty: 1 on 06/29/2015 by Maryjo Choi MD at [facility] Sealant N/A: Spine Lumbar [employer]- BIOSCIENCE 08/26/2016 [id number] / / [id number] Insurance FOREIGN SERVICE BENEFIT PLAN POS [employer] Advance Directives For more information, please contact: [phone] Documents on File Type Date Recorded Patient Full Service Vending Driver Expl anation Advance Directive POA 07/05/2015 12:18 [...] 6:56 AM 06/24/2018 9:57 AM Care Teams Government Property Inspector Relationship Specialty [place] [address] [place] [address] PCP - General Internal Medicine 09/01/14
--- OUTSIDE RECORDS SUMMARY | 2024-12-01 13:21 | XMS_ITS | Encounter Summary ---
Author Organization [employer] Address [address] [place] [address] Care Team Providers Care Employee Relation Manager Name Role Phone Chelsie Pleitez MD Primary Care Provider [phone] Encounter Details Date Type Department Care Team [...] on file Legal Sex Female 4:46 AM CLINICAL PSYCHIATRIST Gender Identity Not on file Sexual Orientation [...] documented as of this encounter Care Teams Employee Relation Manager Relationship Specialty [place] [address] [place] [address] PCP - General Internal Medicine 09/01/14 documented as of this encounter
--- OUTSIDE RECORDS SUMMARY | 2024-12-01 13:21 | XMS_ITS | Encounter Summary ---
Author Organization [email or web address] Address [address] [place] [address] Care Team Providers Care Leg Man Name Role Phone Chelsie Pleitez MD Primary Care Provider [phone] Encounter Details Date Type Department Care Team [...] on file Legal Sex Female 4:46 AM HUMAN SERVICES SUPERVISOR Gender Identity Not on file Sexual Orientation [...] documented as of this encounter Care Teams Leg Man Relationship Specialty Start [place] [address] [place] [address] PCP - General Internal Medicine 09/01/14 documented as of this encounter
--- OUTSIDE RECORDS SUMMARY | 2024-12-01 13:21 | XMS_ITS | Encounter Summary ---
Author Organization [facility] Address [address] [place] [address] Care Team Providers Care Hosiery Bagger Name Role Phone Chelsie Pleitez MD Primary Care Provider [phone] Encounter Details Date Type Department Care Team (Late st Contact Info) Description 07/06/[address] [phone] Anurag Lee MD [address] [place] [address] Social History Tobacco Use Types Packs/Day Years Used Date Smoking Tobacco: Never Smokeless Tobacco: Never Alcohol Use Standard Drinks/Week Comments Yes 1 (1 standard drink = 0.6 oz pur e alcohol) Social alcohol intake Comments No Sex and Gender Information Value Date Recorded Sex Assigned at Not on file Legal Sex Female 4:46 AM ENERGY AND SUSTAINABILITY MANAGER Gender Identity Not on file Sexual [...] documented as of this encounter Care Teams Hosiery Bagger Relationship Specialty Start [place] [address] [place] [address] PCP - General Internal Medicine 09/01/14 documented as of this encounter
--- OUTSIDE RECORDS SUMMARY | 2024-12-01 13:21 | XMS_ITS | Referral Summary ---
Author Organization [facility] Address [address] [place] [address] Care Team Providers Care Director Of Food And Nutrition Services Name Role Phone No, Physician Unavailable Pat Ramírez DO Primary Care Provider [phone] Allergies Active Allergy Reactions Criticality Noted Date [...] on file Legal Sex Female 12:57 PM AGENT SPA DESK Gender Identity Not on file Sexual Orientation [...] Plan of Treatment Not on file Insurance [employer] OOS Care Teams Director Of Food And Nutrition Services Relationship Specialty Start Date End Date Pat Ramírez DO [address] [facility] [address] [place] [address] PCP - General Family Medicine 06/24/24 No, Physician 05/11/24
--- OUTSIDE RECORDS SUMMARY | 2024-12-01 13:21 | XMS_ITS | Encounter Summary ---
Author Organization [employer] Address [address] [place] [address] Care Team Providers Care Electrical Controls Assembler Name Role Phone Chelsie Pleitez MD Primary Care Provider Encounter Details Date Type Department Care Team [...] on file Legal Sex Female 4:46 AM AXMINSTER WEAVER Gender Identity Not on file Sexual Orientation [...] documented as of this encounter Care Teams Electrical Controls Assembler Relationship Specialty Start [place] [address] [place] [phone] PCP - General Internal Medicine 09/01/14 documented as of this encounter
--- OUTSIDE RECORDS SUMMARY | 2024-12-01 13:21 | XMS_ITS | Encounter Summary ---
Author Organization [employer] Address [address] [place] [address] Care Team Providers Care Literacy Education Professor Name Role Phone Chelsie Pleitez MD Primary Care Provider [phone] Encounter Details Date Type Department Care Team [...] on file Legal Sex Female 4:46 AM CUSTOMER SERVICE ADMINISTRATOR Gender Identity Not on file Sexual Orientation [...] documented as of this encounter Care Teams Literacy Education Professor Relationship Specialty Start [place] [address] [place] [address] PCP - General Internal Medicine 09/01/14 documented as of this encounter
--- OUTSIDE RECORDS SUMMARY | 2024-12-01 13:21 | XMS_ITS | Encounter Summary ---
Author Organization [employer] Address [address] [place] [address] Care Team Providers Care Teamsite Developer Name Role Phone Chelsie Pleitez MD Primary Care Provider [phone] Encounter Details Date Type Department Care Team [...] on file Legal Sex Female 4:46 AM INDIAN BLANKET WEAVER Gender Identity Not on file Sexual [...] documented as of this encounter Care Teams Teamsite Developer Relationship Specialty Start [place] [address] [place] [address] PCP - General Internal Medicine 09/01/14 documented as of this encounter
--- OUTSIDE RECORDS SUMMARY | 2024-12-01 13:21 | XMS_ITS | Encounter Summary ---
Author Organization [employer] Address [address] [place] [address] Care Team Providers Care Dictaphone Typist Name Role Phone Chelsie Pleitez MD Primary Care Provider [phone] Encounter Details Date Type Department Care Team [...] on file Legal Sex Female 4:46 AM FRAME HAND Gender Identity Not on file Sexual Orientation [...] documented as of this encounter Care Teams Dictaphone Typist Relationship Specialty Start [place] [address] [place] [phone] PCP - General Internal Medicine 09/01/14 documented as of this encounter
[2024-12-01] MEDS: AMOXICILLIN/CLAVULANATE K 875-125 MG TAB 1 TABLET PO (13:54)
[2024-12-01] MEDS: KETOROLAC 15 MG/ML VIAL (*BKC) IV PUSH (13:54)
[2024-12-01] MEDS: dexAMETHasone SOD PHOS INJ 10 MG/ML 1 ML VIAL IV PUSH (13:54)
[2024-12-01 13:58] VITALS: BP 119/71; PULSE 90; RESP 18
[2024-12-01 14:14] VITALS: BP 119/71; PULSE 90; RESP 18; O2SAT 99
== END 2024-12-01 14:17 | disposition home or self-care (01) ==
PROVIDERS: Registered Nurse; Emergency Provider Emergency Medicine
DX: L04.0 Acute lymphadenitis of face, head and neck (principal); F90.9 Attention-deficit hyperactivity disorder, unspecified type
CPT/HCPCS: 36415; 70491; 71046; 76536; 80053; 83605; 84484; 85025; 85055; 85610; 85730; 86140; 87040; 93005; 96374; 96375; 99284; A9270; J1100; J1885; Q9967

== ENCOUNTER 2025-07-29 12:37 | Outpatient (CLI) | payer BC, SELFPAY ==
--- OUTSIDE RECORDS SUMMARY | 2025-07-14 04:00 | XMS_ITS ---
Author Organization [facility] [employer] [facility] Address [address] [facility] [address] [place] [address] Care Team Providers Care Pinking Machine Operator Name Role Phone Brian Garrett Unavailable [phone] Yue Tinoco Unavailable [phone] REASON FOR VISIT Therapy Visit Social History Sex Assigned At : Social History Observation Description Sex Assigned At Female Encounters Encounter Location Date Provider Diagnosis [facility], [address] [address] [facility] [address] [place] [address] 07/14/2025 Yue Tinoco Plan Of Treatment Next Appt Details Provider Name:Brian Garrett, 08/05/2025 11:00:00 AM, [address], [facility] [address], [place], [address], Progress Notes * DAVE PASCUALOB:12/1984 (40 yo F)Acc No.[id number]:07/14/2025 Patient: Marnie TENADAVE Provider: Israel Tinoco :1985 A ge:40 Y S ex:Female Date:07/14/2025 Address:[address] [place], [place] Data: * Chief Complaints: * T herapy Visit Billing Information: * Procedure Codes: * Electronic signature of Prakash Tinoco LCPC on 07/29/2025 at 12:44 PM CDT Sign off status: Pending Signatures: No Ad Hoc Signature Added * Provider: Israel Tinoco Date: 0 07/14/2025 Generated for Pal gill/Alessia/Raúl on: 1 12:44 PM CDT
--- OUTSIDE RECORDS SUMMARY | 2025-07-29 12:44 | XMS_ITS | Clinical Summary ---
Author Organization [facility] Address [address] [facility] [place] [address] Care Team Providers Care Hand Singer Name Role Phone Chelsie Pleitez MD Primary Care Provider Allergies Active Allergy Reactions Criticality Noted Date Comments Antifungal - Imidazole Abdominal Pain High 8 Burning abdominal pain with all antifungals Nickel Rash Medium 06/21/2015 Medications buPROPion HCl (WELLBUTRIN XL) 300 mg Extended Release 24 hour tabletIndicatio ns:Situational mixed anxiety and depressive disorder Take 1 Tablet (300 mg) by mouth daily family law specialist. 90 Tablet 3 8 Active buPROPion HCl (WELLBUTRIN XL) 150 mg Extended Release 24 hour tabletIndicatio ns:Situational mixed anxiety and depressive disorder Take 1 Tablet (150 mg) by mouth daily family law specialist Take with 300 mg tablet. 90 Tablet [...] without diagnosis of hypertension 06/24/20 18 08/17/2019 Encounters Date Type Department Care Team Description 06/22/2025 External Device Data [facility] ABSTRACTION Provider, Abstract 06/21/2025 External Device Data [facility] ABSTRACTION Provider, Abstract 06/21/2025 External Device Data [facility] ABSTRACTION Provider, Abstract 06/15/2025 2:47 PM CDT - 06/15/2025 11:59 PM CDT Hospital Encounter [facility] [address] [address] Tico Choi MD Discharge Disposition: Home or Self Care from Last 3 Months Immunizations Immunization Administration Dates Next Due (ADACEL/BOOSTRIX)(10 [...] on file Legal Sex Female 4:46 AM RACKING MACHINE OPERATOR Gender Identity Not on file Sexual Orientation Not on file Occupation Industry Job Start Date Job End Date Not on file Not on file Not on file Not on file Last Filed Vital Signs Vital Sign Reading Time Taken Comments Blood Pressure 108/66 08/31/2019 11:37 AM RACKING MACHINE OPERATOR Pulse 67 08/31/2019 11:37 AM RACKING MACHINE OPERATOR Temperature 36.4 C (97.5 F) 08/17/2019 8:28 AM CDT Respiratory Rate 18 08/06/2019 4:11 PM CDT Oxygen Saturation 98% 08/31/2019 11:37 AM RACKING MACHINE OPERATOR Inhaled Oxygen Concentration - - Weight 73 kg (161 lb) 09/10/2019 2:11 PM RACKING MACHINE OPERATOR Height 175.3 cm (5' 9) 09/10/2019 2:11 PM RACKING MACHINE OPERATOR Body Mass Index 23.78 09/10/2019 2:11 PM RACKING MACHINE OPERATOR Plan of Treatment Health Maintenance Due Date Last Done Comments HPV/Cotest (21-29) 01/27/2005 HPV VACCINES (1 - 3-dose SCD M series) 01/27/2011 HEPATITIS B VACCINES (2 of 3 - 19+ 3-dose series) 12/20/2011 11/22/2011, 06/08/2008, 05/12/2008 HPV/Cotest (30-65) 01/27/2014 CERVICAL CANCER SCREENING 10/27/2014 PAP SMEAR 10/27/2014 10/27/2011 Pre-Diabetes and Diabetes Screening 09/16/2021 09/16/2018, 01/23/2018, 02/17/2016 BREAST CANCER SCREENING 2024 Preventative Visit- Commercial 10/27/2024 0 07/02/2024, 01/23/2018, 02/27/2017, Additional history exists INFLUENZA VACCINE (#1) 2025 2, 08/19/2019, 09/16/2018, Additional history exists COVID-19 Vaccine (3 2024-2 6 season) 2025 02/28/2021, 01/17/2021 DTAP/TDAP/TD VACCINES (2 - T d or Tdap) 08/12/2026 08/12/2016, 10/27/2007 Medical Devices Implanted Type Area Veterans' Counselor Device Identifier Shelf Expiration Date Model / Serial / Lot Infuse Protein Kit [id number] - [id number] Implanted:Qty: 1 on 06/29/2015 by Maryjo Choi MD at [facility] [employer] SO[employer]AMOR [employer] 03/26/2016 [id number] / / [id number] Seamguard Endogia 60 Prpl [id number] - [id number] Implanted:Qty: 3 on 06/24/2018 by Anurag Lee MD at [facility] [employer] N/A: Stomach [employer] 02/23/2021 [id number] / / [id number] Seamguard Endogia 60 Blck [id number] - [id number] Implanted:Qty: 2 on 06/24/2018 by Anurag Lee MD at [facility] [employer] N/A: Stomach [employer] 02/23/2021 [id number] / / [id number] Capstone Spinal System Implanted:Qty: 1 on 06/29/2015 by Maryjo Choi MD at [facility] [place] N/A: Spine Lumbar [employer] - SPINAL fka KYPHON 11/20/2019 [id number] / / [id number] Solera Sextant Implanted:Qty: 2 on 06/29/2015 by Maryjo Choi MD at [facility] [place] N/A: Spine Lumbar [employer] - SPINAL fka KYPHON [id number] / / Description:sterilized jun 28, 2015 load 19 Screw Solera Ma 6.5x35mm [id number] - Ssterilized Jun 28, 2015 Load 19 Implanted:Qty: 2 on 06/29/2015 by Maryjo Choi MD at [facility] Screw N/A: Spine Lumbar [employer]- SOFAMOR DANEK [id number] / STERILIZED JUN 28, 2015 LOAD 19 / Screw Solera Ma 6.5x45mm [id number] - Ssterilized Jun 28, 2015 Load 19 Implanted:Qty: 2 on 06/29/2015 by Maryjo Choi MD at [facility] Screw N/A: Spine Lumbar [employer]- SOFAMOR DANEK [id number] / STERILIZED JUN 28, 2015 LOAD 19 / Set Screw Sextant Break-Off [id number] - Ssterilized Jun 28, 2015 Load 19 Implanted:Qty: 4 on 06/29/2015 by Maryjo Choi MD at [facility] Screw N/A: Spine Lumbar [employer]- SOFAMOR DANEK [id number] / STERILIZED JUN 28, 2015 LOAD 19 / Sealant Floseal W/ Adptr 10ml [id number] - [id number] Implanted:Qty: 1 on 06/29/2015 by Maryjo Choi MD at [facility] Sealant N/A: Spine Lumbar DURBIN- BIOSCIENCE 08/26/2016 [id number] / / [id number] Procedures Procedure Name Priority Date/Time Associated Diagnosis Comments US PELVIS + TRANSVAG NON OB Routine 06/15/2025 3:27 PM CDT PCOS (polycystic ovarian syndrome) HEMOGLOBIN A1C Routine 09/16/2018 10:23 AM RACKING MACHINE OPERATOR Prediabetes from Last 3 Months or Most Recently Relevant to Health Maintenance Results * US PELVIS + TRANSVAG NON OB (06/15/2025 3:27 PM CDT) Anatomical Region Laterality Modality Pelvis Ultrasound 06/15/2025 3:28 PM CDT Impressions 06/15/2025 4:10 PM CDT IMPRESSION: 1. Unremarkable pelvic ultrasound. Narrative 06/15/2025 4:10 PM CDT EXAMINATION: PELVIC ULTRASOUND, TRANSABDOMINAL AND TRANSVAGINAL WITH DOPPLER DATE: 06/15/2025 3:27 PM HISTORY: Polycystic ovarian syndrome COMPARISON: CT abdomen and pelvis 06/06/2019 TECHNIQUE: Standard transabdominal and transvaginal protocol was performed including zamarripa scale and color Doppler images with spectral waveform analysis. FINDINGS: 6.5 x 4.3 x 2.8 cm uterus. No uterine mass. 7.5 mm thickness endometrial complex. 3.2 x 2.0 x 2.5 cm right ovary contains a small 2.3 cm simple cyst. 2.8 x 1.5 x 2.5 cm unremarkable left ovary. Blood flow present to both ovaries. No adnexal mass. No free pelvic fluid. Procedure Note Kris Hu MD - 06/15/2025 EXAMINATION: PELVIC ULTRASOUND, TRANSABDOMINAL AND TRANSVAGINAL WITH DOPPLER DATE: 06/15/2025 3:27 PM HISTORY: Polycystic ovarian syndrome COMPARISON: CT abdomen and pelvis 06/06/2019 TECHNIQUE: Standard transabdominal and transvaginal protocol was performed including zamarripa scale and color Doppler images with spectral waveform analysis. FINDINGS: 6.5 x 4.3 x 2.8 cm uterus. No uterine mass. 7.5 mm thickness endometrial complex. 3.2 x 2.0 x 2.5 cm right ovary contains a small 2.3 cm simple cyst. 2.8 x 1.5 x 2.5 cm unremarkable left ovary. Blood flow present to both ovaries. No adnexal mass. No free pelvic fluid. IMPRESSION: 1. Unremarkable pelvic ultrasound. Tico Choi MD ORDERABLES Final Result * HEMOGLOBIN A1C (09/16/2018 10:23 AM RACKING MACHINE OPERATOR) HEMOGLOBIN A1C 5.4 <5.7 % 09/16/2018 5:20 PM [facility] [employer] [facility] EST. AVG GLUCOSE, A1C 108 mg/dL 09/16/2018 5:20 PM [facility] [employer] [facility] Blood Venipuncture / Unknown 09/16/2018 10:23 AM RACKING MACHINE OPERATOR 09/16/2018 10:23 AM [facility] [employer] [facility] - 09/16/2018 5:20 PM RACKING MACHINE OPERATOR HGB A1C INTERPRETATION NORMAL: <5.7% PRE-DIABETES: 5.7 - 6.4% DIABETES: 6.5% OR GREATER us Chelsie Pleitez MD CHEMISTRY ORDERABLES Final Resul t [facility]# [id number] [address] [place] [address] from Last 3 Months or Most Recently Relevant to Health Maintenance Insurance BCBS BLUE ACCESS/TRUE BLUE PPO RX [employer] Advance Directives For more information, please contact: [phone] Documents on File Type Date Recorded Patient Cnc Service Engineer Expl anation Advance Directive POA 07/05/2015 12:18 [...] 6:56 AM 06/24/2018 9:57 AM Care Teams Hand Singer Relationship Specialty Start [place] [address] [place] [address] PCP - General Internal Medicine 09/01/14
--- OUTSIDE RECORDS SUMMARY | 2025-07-29 12:44 | XMS_ITS | Clinical Summary ---
Author Organization [facility] Address [address] [place] [address] Care Team Providers Care Pest Control Worker Name Role Phone No, Physician Unavailable Pat Ramírez DO Primary Care Provider [phone] Allergies Active Allergy Reactions Criticality Noted Date Comments Antifungal - Imidazole Stomach upset High 06/24/2018 Burning abdominal pain with all antifungals Nickel Rash Medium 06/21/2015 Terbinafine Other (See comments) Low 07/02/2024 Medications cyclobenzaprine (FLEXERIL) 7.5 mg tablet Take 1 tablet (7.5 mg total) by mouth 3 (three) times a day as needed Active Active Problems Problem Noted Date Diagnosed Date Sciatica 11/24/2013 Immunizations Immunization Administration Dates Next Due Hep A / Hep B 11/22/2011 Hep B Vaccine 06/08/2008,05/12/2008 Influenza, Quadrivalent, Spl it, Preservative Free, Intramuscular 09/25/2022,08/19/2019,09/16/2018,08/21,08/12/2016,09/01/2014 Influenza, Trivalent, IM (MDV) 07/27/2013 Influenza, Unspecified 08/19/2023(Deferred: Chari ent Refused) Pfizer SARS-CoV-2 Monovalent Vaccination (12+ Yrs) PURPLE 02/28/2021,01/17/2021 Td, adsorbed 10/27/2007,03/01/1999 Tdap 08/12/2016 Surgical History Surgery Date Site/Laterality Comments TX EXPLORATORY LAPAROTOMY CE LIOTOMY W/WO BIOPSY SPX [...] on file Legal Sex Female 12:57 PM WALL SCRAPER Gender Identity Not on file Sexual Orientation Not on file Obstetrics History Last Filed Vital Signs Vital Sign Reading Time Taken Comments Blood Pressure 101/60 07/02/2024 8:09 AM CDT Pulse 78 07/02/2024 8:09 AM CDT Temperature 36.6 C (97.9 F) 07/02/2024 8:09 AM CDT Respiratory Rate 18 07/02/2024 8:09 AM CDT Oxygen Saturation 98% 07/02/2024 8:09 AM CDT Inhaled Oxygen Concentration - - Weight 103.9 kg (229 lb) 07/02/2024 8:09 AM CDT Height 172.7 cm (5' 8) 07/02/2024 8:09 AM CDT Body Mass Index 34.82 07/02/2024 8:09 AM CDT Plan of Treatment Health Maintenance Due Date Last Done Comments Breast Cancer Screening-Mammogram 1984 Cervical Cancer Screening 1984 Hepatitis C Screening 1984 Varicella Vaccines (1 of 2 - 13+ 2-dose series) 01/27/1997 HPV Vaccines (1 - 3-dose SCDM series) 01/27/2011 Covid-19 Vaccine ( season) 2025 09/25/2022, 02/28/2021, 01/17/2021 Influenza Vaccine (#1) 2025 , 08/19/2019, 09/16/2018, Additional history exists Depression Screening 07/02/2025 07/02/2024 Regular Well Visit/Exam 18-64 07/02/2025 07/02/2024 DTaP/Tdap/Td Vaccine (2 - Td or Tdap) 08/12/2026 08/12/2016, 10/27/2007, 03/01/1999 Hepatitis B Screening Completed 11/22/2011 , 06/08/2008, 05/12/2008 Pneumococcal vaccine <65 Aged Out No longer eligible based on patient's age to complete this topic Insurance [employer] OOS [address] [id number] Care Teams Pest Control Worker Relationship Specialty Start Date End Date Pat Ramírez DO PCP - General Family Medicine 06/24/24 No, Physician 05/11/24
--- OUTSIDE RECORDS SUMMARY | 2025-07-29 12:44 | XMS_ITS | Encounter Summary ---
Author Organization [employer] Address [address] [place] [address] Care Team Providers Care Principal Technical Architect Name Role Phone Chelsie Pleitez MD Primary Care Provider [phone] Encounter Details Date Type Department Care Team [...] on file Legal Sex Female 4:46 AM STAVE PLANER TENDER Gender Identity Not on file Sexual Orientation [...] documented as of this encounter Care Teams Principal Technical Architect Relationship Specialty [place] [address] [place] [address] PCP - General Internal Medicine 09/01/14 documented as of this encounter
--- OUTSIDE RECORDS SUMMARY | 2025-07-29 12:44 | XMS_ITS | Encounter Summary ---
Author Organization [employer] Address [address] [place] [address] Care Team Providers Care Burn Nurse Name Role Phone Chelsie Pleitez MD Primary Care Provider [phone] Encounter Details Date Type Department Care Team (Late st Contact Info) Description 07/06/2018 Abstract [facility] [address] [address] Anurag Lee MD [address] [address] Social History Tobacco Use Types Packs/Day Years Used Date Smoking Tobacco: Never Smokeless Tobacco: Never Alcohol Use Standard Drinks/Week Comments Yes 1 (1 standard drink = 0.6 oz pur e alcohol) Social alcohol intake Comments No Sex and Gender Information Value Date Recorded Sex Assigned at Not on file Legal Sex Female 4:46 AM BAGGAGEMAN Gender Identity Not on file Sexual Orientation [...] documented as of this encounter Care Teams Burn Nurse Relationship Specialty [place] [address] [place] [address] PCP - General Internal Medicine 09/01/14 documented as of this encounter
--- OUTSIDE RECORDS SUMMARY | 2025-07-29 12:44 | XMS_ITS | Encounter Summary ---
Author Organization [employer] Address [address] [place] [address] Care Team Providers Care Storeroom Keeper Name Role Phone Chelsie Pleitez MD Primary Care Provider [phone] Encounter Details Date Type Department Care Team [...] on file Legal Sex Female 4:46 AM BOILERMAKER LOFTSMAN Gender Identity Not on file Sexual Orientation [...] documented as of this encounter Care Teams Storeroom Keeper Relationship Specialty [place] [address] [place] [address] PCP - General Internal Medicine 09/01/14 documented as of this encounter
--- OUTSIDE RECORDS SUMMARY | 2025-07-29 12:44 | XMS_ITS | Encounter Summary ---
Author Organization [employer] Address [address] [place] [address] Care Team Providers Care Inclusion Paraeducator Name Role Phone Chelsie Pleitez MD Primary [...] on file Legal Sex Female 4:46 AM MAPPING TECHNICIAN Gender Identity Not on file Sexual Orientation [...] documented as of this encounter Care Teams Inclusion Paraeducator Relationship Specialty [place] [address] [place] [address] PCP - General Internal Medicine 09/01/14 documented as of this encounter
--- OUTSIDE RECORDS SUMMARY | 2025-07-29 12:44 | XMS_ITS | Encounter Summary ---
Author Organization [facility] Address [address] [place] [address] Care Team Providers Care Bike Shop Manager Name Role Phone Chelsie Pleitez MD Primary Care Provider [phone] Encounter Details Date Type Department Care Team (Late st Contact Info) Description 12/09/1998 Outpatient Historical [facility] Felicia Kent MD [address] [place] [address] [address] Social History Tobacco Use Types Packs/Day Years Used Date Smoking Tobacco: Never Assessed Comments Unknown Sex and Gender Information Value Date Recorded Sex Assigned at Not on file Legal Sex Female 4:46 AM TALENT DEVELOPMENT CONSULTANT Gender Identity Not on file Sexual Orientation [...] documented as of this encounter Care Teams Bike Shop Manager Relationship Specialty [place] [address] [place] [id number] PCP - General Internal Medicine 09/01/14 documented as of this encounter
--- OUTSIDE RECORDS SUMMARY | 2025-07-29 12:44 | XMS_ITS | Encounter Summary ---
Author Organization [employer] Address [address] [place] [address] Care Team Providers Care Missile Tracking Technician Name Role Phone Chelsie Pleitez MD Primary Care Provider [phone] Encounter Details Date Type Department Care Team [...] file Legal Sex Female 4:46 AM CUSTOMER TECHNICAL SERVICES MANAGER Gender Identity Not on file Sexual [...] documented as of this encounter Care Teams Missile Tracking Technician Relationship Specialty [place] [address] [place] [address] PCP - General Internal Medicine 09/01/14 documented as of this encounter
--- OUTSIDE RECORDS SUMMARY | 2025-07-29 12:44 | XMS_ITS | Encounter Summary ---
Author Organization [employer] Address [address] [place] [address] Care Team Providers Care Travel Administrator Name Role Phone Chelsie Pleitez MD Primary Care Provider [phone] Encounter Details Date Type Department Care Team [...] on file Legal Sex Female 4:46 AM SKEINS YARN EXAMINER Gender Identity Not on file Sexual Orientation [...] documented as of this encounter Care Teams Travel Administrator Relationship Specialty [place] [address] [place] [address] PCP - General Internal Medicine 09/01/14 documented as of this encounter
--- OUTSIDE RECORDS SUMMARY | 2025-07-29 12:44 | XMS_ITS | Encounter Summary ---
Author Organization [employer] Address [address] [place] [address] Care Team Providers Care Salad Counter Attendant Name Role Phone Chelsie Pleitez MD Primary Care Provider [phone] Encounter Details Date Type Department Care Team [...] on file Legal Sex Female 4:46 AM BAG MAKING MACHINE TENDER Gender Identity Not on file Sexual [...] documented as of this encounter Care Teams Salad Counter Attendant Relationship Specialty [place] [address] [place] [address] PCP - General Internal Medicine 09/01/14 documented as of this encounter
--- OUTSIDE RECORDS SUMMARY | 2025-07-29 12:44 | XMS_ITS | Encounter Summary ---
Author Organization [employer] Address 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
--- OUTSIDE RECORDS SUMMARY | 2025-07-29 12:45 | XMS_ITS | Patient Health Record ---
Author Organization [facility] Address [address] [place] [address] Care Team Providers Care Mission Planner Name Role Phone ChauBrian roque Unavailable [phone] Pat Wymananna Unavailable [phone] Yue Tinoco Unavailable [phone] Allergies Allergen (clinical drug ingredient) Drug/Non Drug Allergy documented on EMR Reaction Allergy Type Onset Date Status ANTIFUNGAL - IMIDAZO LE (uncoded) Unknown Allergy 07/14/2023 Active fluoxetine FLUoxetine HCl Unknown Drug Allergy A ctive Sertraline HCl Unknown Drug Allergy 04/05/2025 A ctive Results Component Value Reference Range Notes UDT Reviewed date:02/25/2025 02:07:56 PM Interpretation: Performing Lab: Notes/Report: THC P 0 - 50 ng/ml Cocaine N 0 - 300 ng/ml Amphetamine N 0 - 1000 ng/ml Buprenorphine (BUP) N 0 - 10 ng/ml Secobarbital (Bar) N 0 - 300 ng/ml Oxazepam (BZO) N 0 - 300 ng/ml 4-dufylgrtpt-3,4-zskoqkto-5,3-diphenylpyrrolidine (ELLIOTT P) N 0 - 300 ng/ml Methamphetamine (MET) N 0 - 1000 ng/ml Methylenedioxymethamphetamine (MDMA) N 0 - 500 ng/ml Morphine (MOP 300/[id number]) N 0 - 300 ng/ml Methadone (MTD) N 0 - 300 ng/ml Phencyclidine (PCP) N 0 - 25 ng/ml Nortriptyline (TCA) N 0 - 1000 ng/ml Oxycodone N 0 - 300 ng/ml Reason For Referral No Information Medications Medication SIG (Take, Route, Frequency, Duration) Notes Start Date End Date Status QUEtiapine Fumarate ER 50 MG Tablet Extended Release 24 Hour 2 tablets in the evening Orally Once a day; Duration: 90 days 06/06/2025 Unknown busPIRone HCl 5 MG Tablet 1 tablet Orall y Twice a day 07/07/2025 Unknown busPIRone HCl 5 MG Tablet 1 tablet Orall y Twice a day; Duration: 30 days 07/07/2025 08/06/2025 Unknown Escitalopram Oxalate 20 MG Tablet 1 tablet Orally Once a day; Duration: 90 days Unknown hydrOXYzine HCl 25 MG Tablet 1 tablet Oral three times a day; Duration: 90 days As needed Unknown Propranolol HCl 10 MG Tablet 1 tablet Orally once a day; Duration: 90 days As needed Unknown Social History Tobacco Use: Social History Observation Description Date Details (start date - stop date) Never Smoker NA - NA Sex Assigned At : Social History Observation Description Sex Assigned At Female Social History Miscellaneous: Social Info Question Answer Notes Safety issues: Are there any firearms in the house? No Social History Social Info Question Answer Notes Household: Marital Status: Number of Adults in household: 2 Number of Children in Household: 1 Level of Education: Not Finished College Drug/Alcohol: Social Info Question Answer Notes Drugs Have you used drugs other than those for medical reasons in the past 12 months? No AUDIT-C (Standard) Did you have a drink containing alcohol in the past year? Yes How often did you have a drink containing alcohol in the past year? Daily or almost daily (4 points) How many drinks did you have on a typical day when you were drinking in the past year? 3 or 4 drinks (1 point) How often did you have six or more drinks on one occasion in the past year? 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 Adm its , Occasionally Do you drink alcohol? Yes Problems Problem Type SNOMED Code ICD Code Onset Dates Problem Status W/U Status Risk Notes Problem Insomnia disorder related to another mental disorder (87661728) Insomnia due to other mental disorder (F51.05) Active confirmed improving Problem Attention deficit hyperactivity disorder, predominantly inattentive type (01891168) Attention-defic it hyperactivity disorder, predominantly inattentive type (F90.0) Active confirmed needs improvement Problem Generalized anxiety disorder (57650888) JAXSON (generalized anxiety disorder) (F41.1) Active confirmed improving Problem Severe recurrent major depression without psychotic features (93818114) Severe episode of recurrent major depressive disorder, without psychotic features (F33.2) Active confirmed Problem Nondependent cannabis abuse (009751886) Marijuana use (F12.90) Active confirmed improving Vital Signs Heart Rate 80 /min 05/24/2025 Height-cm 172.72 cm 07/15/2025 Blood pressure diastolic 81 mm Hg 05/24/2025 Weight-kg 103.42 kg 05/24/2025 Height 68.00 in 07/15/2025 Blood pressure systolic 112 mm Hg 05/24/2025 Weight 228 lbs 05/24/2025 BMI 34.66 kg/m2 05/24/2025 Encounters Encounter Location Date Provider Diagnosis [facility] [place] [address] 02/25/2025 Brian Clubb JAXSON (generalized anxiety disorder) F41.1 ; Severe episode of recurrent major depressive disorder, without psychotic features F33.2 ; Encounter for screening for depression Z13.31 and Marijuana use F12.90 [facility] [place] [address] 04/05/2025 Brian Clubb JAXSON (generalized anxiety disorder) F41.1 ; Severe episode of recurrent major depressive disorder, without psychotic features F33.2 ; Marijuana use F12.90 ; Encounter for screening for depression Z13.31 and Encounter for screening for cardiovascular disorders Z13.6 [facility] [address] [place] [address] 05/05/2025 Brian Clubb JAXSON (generalized anxiety disorder) F41.1 ; Severe episode of recurrent major depressive disorder, without psychotic features F33.2 ; Marijuana use F12.90 and Attention-deficit hyperactivity disorder, predominantly inattentive type F90.0 [facility] [address] [place] [address] 05/06/2025 Uye Hinderliter JAXSON (generalized anxiety disorder) F41.1 ; Major depressive disorder, recurrent severe without psychotic features F33.2 ; Attention-deficit hyperactivity disorder, predominantly inattentive type F90.0 ; Marijuana use F12.90 and Encounter for screening for depression Z13.31 [facility] [place] [address] 05/16/2025 Yue Hinderliter JAXSON (generalized anxiety disorder) F41.1 ; Major depressive disorder, recurrent severe without psychotic features F33.2 ; Attention-deficit hyperactivity disorder, predominantly inattentive type F90.0 and Encounter for screening for depression Z13.31 [facility] [employer] [address] [place] [address] 05/24/2025 Yue Hinderliter Severe episode of recurrent major depressive disorder, without psychotic features F33.2 ; JAXSON (generalized anxiety disorder) F41.1 ; Attention-deficit hyperactivity disorder, predominantly inattentive type F90.0 and Encounter for screening for depression Z13.31 [facility] [place] [address] 05/24/2025 Brian Clubb JAXSON (generalized anxiety disorder) F41.1 ; Severe episode of recurrent major depressive disorder, without psychotic features F33.2 ; Marijuana use F12.90 and Attention-deficit hyperactivity disorder, predominantly inattentive type F90.0 [facility] [employer] [address] [place] [address] 05/31/2025 Yue Hinderliter JAXSON (generalized anxiety disorder) F41.1 ; Severe episode of recurrent major depressive disorder, without psychotic features F33.2 and Attention-deficit hyperactivity disorder, predominantly inattentive type F90.0 [facility] [employer] [address] [place] [address] 06/06/2025 Yue Hinderliter JAXSON (generalized anxiety disorder) F41.1 ; Severe episode of recurrent major depressive disorder, without psychotic features F33.2 and Attention-deficit hyperactivity disorder, predominantly inattentive type F90.0 [facility] [employer] [address] [place] [address] 06/06/2025 Brian Clubb JAXSON (generalized anxiety disorder) F41.1 ; Severe episode of recurrent major depressive disorder, without psychotic features F33.2 ; Marijuana use F12.90 and Attention-deficit hyperactivity disorder, predominantly inattentive type F90.0 [facility] [employer] [address] [place] [address] 06/16/2025 Yue Hinderliter JAXSON (generalized anxiety disorder) F41.1 ; Attention-deficit hyperactivity disorder, predominantly inattentive type F90.0 ; Severe episode of recurrent major depressive disorder, without psychotic features F33.2 and Insomnia due to other mental disorder F51.05 [facility], [employer] [address] [place] [address] 07/07/2025 Brian Clubb JAXSON (generalized anxiety disorder) F41.1 ; Insomnia due to other mental disorder F51.05 ; Major depressive disorder, recurrent severe without psychotic features F33.2 ; Attention-deficit hyperactivity disorder, predominantly inattentive type F90.0 and Marijuana use F12.90 [facility] [employer] [address] [place] [address] 07/07/2025 Yue Hinderliter Severe episode of recurrent major depressive disorder, without psychotic features F33.2 ; JAXSON (generalized anxiety disorder) F41.1 and Attention-deficit hyperactivity disorder, predominantly inattentive type F90.0 [facility] [employer] [address] [place] [address] 07/15/2025 Yue Hinderliter JAXSON (generalized anxiety disorder) F41.1 ; Severe episode of recurrent major depressive disorder, without psychotic features F33.2 and Attention-deficit hyperactivity disorder, predominantly inattentive type F90.0 [facility] [address] [place] [address] 02/23/2025 Yarely Wyman [facility] [address] [place] [address] 03/24/2025 Brian Clubb JAXSON (generalized anxiety disorder) F41.1 [employer] [employer] [address] [place] [address] 04/07/2025 Brian Clubb [facility] [employer] [address] [place] [address] 05/16/[address] [facility], [facility] [address] [place] [address] 05/27/[address] [facility], [facility] [address] [place] [address] 06/13/2025 Yue Alejandrina [facility], [facility] [address] [place] [address] 06/24/[address] [facility] [place], [facility] [address] [place] [address] 07/07/[address] [facility] [place], [facility] [address] [place] [address] 07/07/[address] [facility] [place], [facility] [address] [place] [address] 07/12/[address] [facility] [place], [facility] [address] [place] [address] 07/14/[address] [facility] [place], [facility] [address] [place] [address] 07/15/[address] [facility] [place], [facility] [address] [place] [address] 07/19/2025 Brian Clubb Assessments Encounter Date Diagnosis (ICD Code) Assessment Notes Treatment Notes Treatment Clinical Notes Section Notes 02/25/2025 JAXSON (generalized anxiety disorder) (ICD-10 - F41.1) 02/25/2025 Severe episode of recurrent major depressive disorder, without psychotic features (ICD-10 - F33.2) 03/24/2025 JAXSON (generalized anxiety disorder) (ICD-10 - F41.1) 04/05/2025 JAXSON (generalized anxiety disorder) (ICD-10 - F41.1) 05/05/2025 JAXSON (generalized anxiety disorder) (ICD-10 - F41.1) 05/05/2025 Severe episode of recurrent major depressive disorder, without psychotic features (ICD-10 - F33.2) 05/06/2025 Major depressive disorder, recurrent severe without psychotic features (ICD-10 - F33.2) Anxiety with panic attacks Assessment: Patient reports experiencing severe anxiety with panic attacks, described as crippling and causing missed work. Symptoms include chest heaviness, racing thoughts, and internalized distress. The anxiety appears to be a recent exacerbation, as the patient states it was previously manageable. Current stressors include early menopause and hormonal changes, which may be contributing to the intensification of symptoms. Patient's history of childhood trauma and recent losses (father's suicide, brother's ) may also be factors in the current presentation. Plan: - Provide patient with handout on distress tolerance skills (TIP: Temperature, Intense exercise, Paced breathing, Paired muscle relaxation) - Encourage resumption of previously helpful activities such as running and dancing - Schedule weekly therapy sessions Depression Assessment: Patient presents with symptoms of depression, including anhedonia, social withdrawal, and difficulty getting out of bed. She describes herself as not myself and reports increased irritability and short-temperedne ss. The patient's history of depression is noted, but the current episode appears more severe, impacting daily functioning and self-care. Recent life stressors, including early menopause and past trauma, may be contributing to the depressive symptoms. Plan: - Implement Cognitive Behavioral Therapy techniques to address negative thought patterns and self-talk - Encourage continuation of gardening as a therapeutic activity Dissociation Assessment: Patient reports recent onset of dissociative episodes, which she describes as disappearing. This is a recurrence of a coping mechanism used in childhood, but not experienced since early adulthood. The reemergence of dissociation may be related to current stressors and unresolved childhood trauma. Plan: - Educate patient on grounding techniques to manage dissociative episodes - Explore childhood experiences and their potential connection to current dissociative symptoms Substance use Assessment: Patient reports recent increase in alcohol consumption, which had become a daily activity. She is currently abstinent from alcohol. Marijuana use for pain management is noted. The increase in alcohol use may have been a maladaptive coping mechanism for managing increased anxiety and depression. Plan: - Monitor alcohol abstinence and provide support for continued sobriety Sleep disturbance Assessment: Patient reports sleeping an average of 5 hours per night, with nightly awakening at 3 AM. She experiences difficulty returning to sleep on some occasions. This sleep pattern may be contributing to or exacerbating her anxiety and depression symptoms. Plan: - Provide sleep hygiene education - Incorporate sleep management techniques into overall treatment plan 05/06/2025 JAXSON (generalized anxiety disorder) (ICD-10 - F41.1) Anxiety with panic attacks Assessment: Patient reports experiencing severe anxiety with panic attacks, described as crippling and causing missed work. Symptoms include chest heaviness, racing thoughts, and internalized distress. The anxiety appears to be a recent exacerbation, as the patient states it was previously manageable. Current stressors include early menopause and hormonal changes, which may be contributing to the intensification of symptoms. Patient's history of childhood trauma and recent losses (father's suicide, brother's ) may also be factors in the current presentation. Plan: - Provide patient with handout on distress tolerance skills (TIP: Temperature, Intense exercise, Paced breathing, Paired muscle relaxation) - Encourage resumption of previously helpful activities such as running and dancing - Schedule weekly therapy sessions Depression Assessment: Patient presents with symptoms of depression, including anhedonia, social withdrawal, and difficulty getting out of bed. She describes herself as not myself and reports increased irritability and short-temperedne ss. The patient's history of depression is noted, but the current episode appears more severe, impacting daily functioning and self-care. Recent life stressors, including early menopause and past trauma, may be contributing to the depressive symptoms. Plan: - Implement Cognitive Behavioral Therapy techniques to address negative thought patterns and self-talk - Encourage continuation of gardening as a therapeutic activity Dissociation Assessment: Patient reports recent onset of dissociative episodes, which she describes as disappearing. This is a recurrence of a coping mechanism used in childhood, but not experienced since early adulthood. The reemergence of dissociation may be related to current stressors and unresolved childhood trauma. Plan: - Educate patient on grounding techniques to manage dissociative episodes - Explore childhood experiences and their potential connection to current dissociative symptoms Substance use Assessment: Patient reports recent increase in alcohol consumption, which had become a daily activity. She is currently abstinent from alcohol. Marijuana use for pain management is noted. The increase in alcohol use may have been a maladaptive coping mechanism for managing increased anxiety and depression. Plan: - Monitor alcohol abstinence and provide support for continued sobriety Sleep disturbance Assessment: Patient reports sleeping an average of 5 hours per night, with nightly awakening at 3 AM. She experiences difficulty returning to sleep on some occasions. This sleep pattern may be contributing to or exacerbating her anxiety and depression symptoms. Plan: - Provide sleep hygiene education - Incorporate sleep management techniques into overall treatment plan 05/16/2025 Major depressive disorder, recurrent severe without psychotic features (ICD-10 - F33.2) Medication Adjustment and Mental Health Symptoms Assessment: Patient is currently transitioning between medications, which is causing fluctuations in her mental state. She reports feeling like her brain is spinning and experiencing racing thoughts, which is atypical compared to her usual depressive symptoms. The medication adjustment is likely contributing to her current state of increased anxiety, sleep disturbances, and difficulty concentrating. These symptoms are impacting her daily functioning, including her ability to leave the house and maintain personal hygiene. Plan: - Continue current medication transition as prescribed by Brian - Encourage patient to communicate with psychiatrist about side effects and concerns - Recommend in-person follow-up appointments to address agoraphobia symptoms - Continue using TIP skills for managing racing thoughts and anxiety - Explore alternative stress-reduction techniques that are less physically demanding than gardening -Encourage continued follow up with PCP for physical health related concerns ADHD Symptom Exacerbation Assessment: Patient has a long-standing diagnosis of ADHD, which appears to be exacerbated by current hormonal changes and medication adjustments. She reports increased difficulty with focus, particularly noting an inability to read books, which she identifies as impacting her mental health. The patient also mentions experiencing language dysphasia, which may be related to her ADHD. Plan: - Explore strategies to improve focus and concentration, particularly for reading including weighted blanket - Monitor language dysphasia symptoms and their impact on daily functioning - Discuss potential adjustments to ADHD management with psychiatrist if symptoms persist 05/16/2025 JAXSON (generalized anxiety disorder) (ICD-10 - F41.1) Medication Adjustment and Mental Health Symptoms Assessment: Patient is currently transitioning between medications, which is causing fluctuations in her mental state. She reports feeling like her brain is spinning and experiencing racing thoughts, which is atypical compared to her usual depressive symptoms. The medication adjustment is likely contributing to her current state of increased anxiety, sleep disturbances, and difficulty concentrating. These symptoms are impacting her daily functioning, including her ability to leave the house and maintain personal hygiene. Plan: - Continue current medication transition as prescribed by Brian - Encourage patient to communicate with psychiatrist about side effects and concerns - Recommend in-person follow-up appointments to address agoraphobia symptoms - Continue using TIP skills for managing racing thoughts and anxiety - Explore alternative stress-reduction techniques that are less physically demanding than gardening -Encourage continued follow up with PCP for physical health related concerns ADHD Symptom Exacerbation Assessment: Patient has a long-standing diagnosis of ADHD, which appears to be exacerbated by current hormonal changes and medication adjustments. She reports increased difficulty with focus, particularly noting an inability to read books, which she identifies as impacting her mental health. The patient also mentions experiencing language dysphasia, which may be related to her ADHD. Plan: - Explore strategies to improve focus and concentration, particularly for reading including weighted blanket - Monitor language dysphasia symptoms and their impact on daily functioning - Discuss potential adjustments to ADHD management with psychiatrist if symptoms persist 05/24/2025 JAXSON (generalized anxiety disorder) (ICD-10 - F41.1) Anxiety with possible perimenopausal exacerbation Assessment: Patient reports significant anxiety symptoms, which she attributes to perimenopause. She describes feeling overwhelmed, particularly when alone, despite positive life circumstances (new house, supportive partner). The anxiety appears to be impacting her daily functioning and ability to engage fully in her personal and professional life. Patient has a history of childhood trauma and difficult family relationships, which may contribute to her current psychological state. Recent life events, including her father's suicide and ongoing co-parenting challenges, are likely exacerbating her anxiety. Current antidepressant treatment appears to have variable effectiveness, possibly due to hormonal fluctuations. Plan: - Patient to proceed with short-term disability leave from work to manage stress - Continue current antidepressant medication as prescribed by Brian - Follow up with [facility] for potential ablation or hysterectomy to address hormonal issues - Continue therapy sessions to address anxiety and past trauma - Continue distress tolerance skill TIP - Avoid alcohol consumption due to potential negative interaction with anxiety symptoms - Monitor effectiveness of current treatment plan and adjust as necessary ADHD management Assessment: Patient has a diagnosis of ADHD, which appears to impact her daily functioning, particularly in areas of organization and task completion. She reports difficulties with storage solutions and maintaining order in her living space, which exacerbates her stress levels. The patient's ADHD symptoms may be interacting with her anxiety, creating additional challenges in managing her daily life and responsibilities . Plan: - Explore and implement ADHD-friendly storage and organization strategies - Monitor impact of ADHD symptoms on overall functioning and anxiety levels Parenting challenges and concerns for daughter's well-being Assessment: Patient expresses concern about her daughter's well-being, particularly regarding the time spent at her ex-'s home. She reports that her daughter exhibits mood changes and withdrawal behaviors after visits, possibly due to overstimulation and lack of attention in a crowded household. The patient is also managing age-appropriate discussions about menstruation and her own health issues with her daughter. Plan: - Continue to advocate for therapy for daughter - Maintain open communication with daughter about health-related topics - Monitor daughter's behavior and well-being, particularly after visits with ex- - Encourage daughter's participation in positive activities (e.g., [employer], [employer]) - Address concerns about daughter's living situation with ex- as appropriate 05/24/2025 Severe episode of recurrent major depressive disorder, without psychotic features (ICD-10 - F33.2) Anxiety with possible perimenopausal exacerbation Assessment: Patient reports significant anxiety symptoms, which she attributes to perimenopause. She describes feeling overwhelmed, particularly when alone, despite positive life circumstances (new house, supportive partner). The anxiety appears to be impacting her daily functioning and ability to engage fully in her personal and professional life. Patient has a history of childhood trauma and difficult family relationships, which may contribute to her current psychological state. Recent life events, including her father's suicide and ongoing co-parenting challenges, are likely exacerbating her anxiety. Current antidepressant treatment appears to have variable effectiveness, possibly due to hormonal fluctuations. Plan: - Patient to proceed with short-term disability leave from work to manage stress - Continue current antidepressant medication as prescribed by Brian - Follow up with OB-WOMEN SPECIALIST for potential ablation or hysterectomy to address hormonal issues - Continue therapy sessions to address anxiety and past trauma - Continue distress tolerance skill TIP - Avoid alcohol consumption due to potential negative interaction with anxiety symptoms - Monitor effectiveness of current treatment plan and adjust as necessary ADHD management Assessment: Patient has a diagnosis of ADHD, which appears to impact her daily functioning, particularly in areas of organization and task completion. She reports difficulties with storage solutions and maintaining order in her living space, which exacerbates her stress levels. The patient's ADHD symptoms may be interacting with her anxiety, creating additional challenges in managing her daily life and responsibilities . Plan: - Explore and implement ADHD-friendly storage and organization strategies - Monitor impact of ADHD symptoms on overall functioning and anxiety levels Parenting challenges and concerns for daughter's well-being Assessment: Patient expresses concern about her daughter's well-being, particularly regarding the time spent at her ex-'s home. She reports that her daughter exhibits mood changes and withdrawal behaviors after visits, possibly due to overstimulation and lack of attention in a crowded household. The patient is also managing age-appropriate discussions about menstruation and her own health issues with her daughter. Plan: - Continue to advocate for therapy for daughter - Maintain open communication with daughter about health-related topics - Monitor daughter's behavior and well-being, particularly after visits with ex- - Encourage daughter's participation in positive activities (e.g., [employer], [employer]) - Address concerns about daughter's living situation with ex- as appropriate 05/24/2025 JAXSON (generalized anxiety disorder) (ICD-10 - F41.1) 05/24/2025 Severe episode of recurrent major depressive disorder, without psychotic features (ICD-10 - F33.2) 05/31/2025 JAXSON (generalized anxiety disorder) (ICD-10 - F41.1) Generalized Anxiety Disorder with work-related impairment Assessment: Patient reports significant anxiety symptoms that have intensified since April, particularly in relation to work responsibilities . Symptoms include difficulty communicating, inability to concentrate, task incompletion, and avoidance behaviors (e.g., inability to read messages from boss, pacing). Patient describes feeling paralyzed and experiencing a constant sense of impending doom. These symptoms are causing significant impairment in occupational functioning, with the patient feeling unable to perform essential job functions. The anxiety appears to be exacerbated by work-related stressors and feelings of guilt. Patient has a history of complex PTSD, which may be contributing to her current presentation. Recent medication changes, including the addition of Lexapro, have shown some improvement in reducing the doom feeling, but anxiety symptoms persist. Plan: - Continue Lexapro as prescribed by Brian - Recommend leave of absence from work for approximately 3 months to focus on mental health - Establish daily routine during leave, including: - Regular wake-up time - Daily shower - Structured activities (e.g., packing in the morning, enjoyable activities in the afternoon) - Encourage implementation of coping mechanisms and positive habits - Practice breathing techniques, particularly 3-minute exercises - Schedule follow-up appointment to reassess symptoms and work readiness Attention-Defici t/Hyperactivity Disorder (ADHD) Assessment: Patient has a long-standing diagnosis of ADHD since first grade. She reports difficulty concentrating, task completion issues, and racing thoughts, which are exacerbating her anxiety symptoms. Patient discontinued stimulant medication during COV due to access issues and attempted a trial of atomoxetine, which resulted in a negative reaction. Currently, ADHD symptoms are contributing to work-related difficulties and overall mental health concerns. Patient expresses a desire to address anxiety first before reconsidering ADHD management. Plan: - Defer specific ADHD treatment at this time, focusing primarily on anxiety management - Reassess need for ADHD-specific interventions after stabilization of anxiety symptoms - Continue to monitor impact of ADHD symptoms on overall functioning Gynecological issues (prolonged menstruation, uterine polyps) Assessment: Patient reports ongoing menstruation for 4 months, which she believes is exacerbating her mental health symptoms. Recent biopsy revealed non-cancerous uterine polyps. Patient has a history of ovarian cysts and is considering treatment options, including ablation or hysterectomy. These gynecological issues may be contributing to hormonal imbalances and subsequent mood disturbances. Plan: - Attend scheduled appointment on June 17 to discuss treatment options (ablation vs. hysterectomy) - Monitor impact of gynecological symptoms on mental health - Coordinate mental health treatment with any planned gynecological interventions 05/31/2025 Severe episode of recurrent major depressive disorder, without psychotic features (ICD-10 - F33.2) Generalized Anxiety Disorder with work-related impairment Assessment: Patient reports significant anxiety symptoms that have intensified since April, particularly in relation to work responsibilities . Symptoms include difficulty communicating, inability to concentrate, task incompletion, and avoidance behaviors (e.g., inability to read messages from boss, pacing). Patient describes feeling paralyzed and experiencing a constant sense of impending doom. These symptoms are causing significant impairment in occupational functioning, with the patient feeling unable to perform essential job functions. The anxiety appears to be exacerbated by work-related stressors and feelings of guilt. Patient has a history of complex PTSD, which may be contributing to her current presentation. Recent medication changes, including the addition of Lexapro, have shown some improvement in reducing the doom feeling, but anxiety symptoms persist. Plan: - Continue Lexapro as prescribed by Brian - Recommend leave of absence from work for approximately 3 months to focus on mental health - Establish daily routine during leave, including: - Regular wake-up time - Daily shower - Structured activities (e.g., packing in the morning, enjoyable activities in the afternoon) - Encourage implementation of coping mechanisms and positive habits - Practice breathing techniques, particularly 3-minute exercises - Schedule follow-up appointment to reassess symptoms and work readiness Attention-Defici t/Hyperactivity Disorder (ADHD) Assessment: Patient has a long-standing diagnosis of ADHD since first grade. She reports difficulty concentrating, task completion issues, and racing thoughts, which are exacerbating her anxiety symptoms. Patient discontinued stimulant medication during COVID due to access issues and attempted a trial of atomoxetine, which resulted in a negative reaction. Currently, ADHD symptoms are contributing to work-related difficulties and overall mental health concerns. Patient expresses a desire to address anxiety first before reconsidering ADHD management. Plan: - Defer specific ADHD treatment at this time, focusing primarily on anxiety management - Reassess need for ADHD-specific interventions after stabilization of anxiety symptoms - Continue to monitor impact of ADHD symptoms on overall functioning Gynecological issues (prolonged menstruation, uterine polyps) Assessment: Patient reports ongoing menstruation for 4 months, which she believes is exacerbating her mental health symptoms. Recent biopsy revealed non-cancerous uterine polyps. Patient has a history of ovarian cysts and is considering treatment options, including ablation or hysterectomy. These gynecological issues may be contributing to hormonal imbalances and subsequent mood disturbances. Plan: - Attend scheduled appointment on June 17 to discuss treatment options (ablation vs. hysterectomy) - Monitor impact of gynecological symptoms on mental health - Coordinate mental health treatment with any planned gynecological interventions 06/06/2025 JAXSON (generalized anxiety disorder) (ICD-10 - F41.1) Panic Attacks Assessment: Patient reports a significant improvement in panic symptoms this week, with no full panic attacks occurring despite experiencing prodromal symptoms. This positive outcome may be attributed to either the patient's improved coping strategies or the effectiveness of prescribed medication. The patient describes typical panic attack symptoms including hot flashes, nausea, dietary issues, sleep disturbances, agitation, and a feeling of the world crushing her. The absence of a full panic attack despite these symptoms suggests progress in managing her condition. Plan: - Continue current medication regimen for panic attacks - Reinforce use of coping strategies that prevented full panic attack - Encourage patient to track frequency and intensity of prodromal symptoms Perimenopausal Symptoms Assessment: Patient reports experiencing severe hot flashes, particularly at night, which are disrupting her sleep. These symptoms, along with the reported menstrual cramps, suggest perimenopausal changes. The hot flashes are described as intense, causing sweating and temperature regulation difficulties. These symptoms are impacting the patient's quality of life and may be exacerbating her anxiety and mood issues. Plan: - Follow up with director market intelligence is scheduled later this month - Explore non-hormonal options for managing hot flashes (e.g., lifestyle modifications, ice) - Recommend sleep hygiene techniques to improve sleep quality Co-parenting Challenges Assessment: Patient reports ongoing difficulties in co-parenting with her ex-, who has a history of bipolar disorder. Communication is limited to a court-mandated may. The patient has identified patterns in her ex-'s manic episodes, typically occurring in March/April and between and . Recent holidays were reported as smoother than in previous years. These challenges are contributing to the patient's overall stress and anxiety. Plan: - Continue using court-mandated communication may for co-parenting interactions - Provide strategies for maintaining boundaries and reducing conflict in co-parenting relationship - Discuss coping mechanisms for managing stress related to ex-'s manic episodes Work-related Stress and Communication Difficulties Assessment: Patient reports decreased work performance and communication difficulties. She expresses feeling overwhelmed by notifications, interpreting them as indications of being in trouble. This suggests heightened anxiety and potential cognitive distortions related to work responsibilities . The patient's ability to function in her work environment appears to be impacted by her current mental health symptoms. She is currently taking time off work to focus on her overall mental health. Plan: - Explore cognitive-behavi oral strategies to address work-related anxiety and cognitive distortions - Discuss time management and prioritization techniques to improve work performance - Consider gradual exposure to notifications to reduce associated anxiety Parenting Concerns Assessment: Patient expresses concern about her ability to support her 14-year-old daughter, who has a significant trauma history and exhibits anxiety symptoms. The daughter continues to experience enuresis, wearing pull-ups at night, which is causing social challenges. The patient feels ill-equipped to provide appropriate emotional support due to her own anxiety issues. This situation is contributing to the patient's overall stress and feelings of inadequacy as a parent. Plan: - Provide psychoeducation on trauma-informed parenting techniques - Discuss strategies for supporting daughter's anxiety while managing own symptoms 06/06/2025 Severe episode of recurrent major depressive disorder, without psychotic features (ICD-10 - F33.2) Panic Attacks Assessment: Patient reports a significant improvement in panic symptoms this week, with no full panic attacks occurring despite experiencing prodromal symptoms. This positive outcome may be attributed to either the patient's improved coping strategies or the effectiveness of prescribed medication. The patient describes typical panic attack symptoms including hot flashes, nausea, dietary issues, sleep disturbances, agitation, and a feeling of the world crushing her. The absence of a full panic attack despite these symptoms suggests progress in managing her condition. Plan: - Continue current medication regimen for panic attacks - Reinforce use of coping strategies that prevented full panic attack - Encourage patient to track frequency and intensity of prodromal symptoms Perimenopausal Symptoms Assessment: Patient reports experiencing severe hot flashes, particularly at night, which are disrupting her sleep. These symptoms, along with the reported menstrual cramps, suggest perimenopausal changes. The hot flashes are described as intense, causing sweating and temperature regulation difficulties. These symptoms are impacting the patient's quality of life and may be exacerbating her anxiety and mood issues. Plan: - Follow up with director market intelligence is scheduled later this month - Explore non-hormonal options for managing hot flashes (e.g., lifestyle modifications, ice) - Recommend sleep hygiene techniques to improve sleep quality Co-parenting Challenges Assessment: Patient reports ongoing difficulties in co-parenting with her ex-, who has a history of bipolar disorder. Communication is limited to a court-mandated may. The patient has identified patterns in her ex-'s manic episodes, typically occurring in March/April and between and . Recent holidays were reported as smoother than in previous years. These challenges are contributing to the patient's overall stress and anxiety. Plan: - Continue using court-mandated communication may for co-parenting interactions - Provide strategies for maintaining boundaries and reducing conflict in co-parenting relationship - Discuss coping mechanisms for managing stress related to ex-'s manic episodes Work-related Stress and Communication Difficulties Assessment: Patient reports decreased work performance and communication difficulties. She expresses feeling overwhelmed by notifications, interpreting them as indications of being in trouble. This suggests heightened anxiety and potential cognitive distortions related to work responsibilities . The patient's ability to function in her work environment appears to be impacted by her current mental health symptoms. She is currently taking time off work to focus on her overall mental health. Plan: - Explore cognitive-behavi oral strategies to address work-related anxiety and cognitive distortions - Discuss time management and prioritization techniques to improve work performance - Consider gradual exposure to notifications to reduce associated anxiety Parenting Concerns Assessment: Patient expresses concern about her ability to support her 14-year-old daughter, who has a significant trauma history and exhibits anxiety symptoms. The daughter continues to experience enuresis, wearing pull-ups at night, which is causing social challenges. The patient feels ill-equipped to provide appropriate emotional support due to her own anxiety issues. This situation is contributing to the patient's overall stress and feelings of inadequacy as a parent. 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 She describes difficulty falling asleep until approximately 5 AM, with sleep not being restful. Despite implementing sleep hygiene practices such as box breathing, meditation, avoiding screen time before bed, and maintaining a cool sleeping environment, the patient continues to struggle with sleep initiation and maintenance. The insomnia is impacting her daily functioning and contributing to work-related issues. Plan: - Continue current sleep hygiene practices - Monitor effectiveness of extended-release medication taken at dinner time - Explore additional non-pharmacologi yaneli interventions for insomnia Anxiety Assessment: Patient experiences ongoing anxiety with both somatic and cognitive symptoms. She reports a constant shake and restless leg syndrome. The anxiety appears to be exacerbated by current stressors, including pending short-term disability approval and house-related issues. Patient distinguishes between two types of anxiety: an unexplained, intense nighttime anxiety and a more typical anxiety associated with identifiable stressors. The former was severe enough to cause work cessation for two weeks due to uncontrollable shaking. Plan: - Continue current anxiety management techniques, including box breathing and meditation - Monitor effectiveness of current medication regimen - Encourage ongoing use of coping strategies for stress reduction Menopausal symptoms Assessment: Patient reports significant menopausal symptoms, including prolonged menstrual bleeding (4-month duration), hot flashes, and mood swings characterized as manic panic attacks. These symptoms are severely impacting her quality of life and sleep patterns. An OB-WOMEN SPECIALIST has recommended progesterone treatment and is planning a hysterectomy to address these issues. The patient is awaiting scheduling of the procedure. 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 This manifests as patches of blisters on her fingers and hands, coinciding with increased stress related to housing issues. The appearance of these symptoms seems to correlate with periods of conscious anxiety rather than the unexplained nighttime anxiety. Plan: - Monitor progression of dermatological symptoms - Encourage stress management techniques to potentially alleviate skin issues 06/16/2025 JAXSON (generalized anxiety disorder) (ICD-10 - F41.1) Insomnia Assessment: Patient reports chronic insomnia exacerbated by anxiety and menopausal symptoms. She describes difficulty falling asleep until approximately 5 AM, with sleep not being restful. Despite implementing sleep hygiene practices such as box breathing, meditation, avoiding screen time before bed, and maintaining a cool sleeping environment, the patient continues to struggle with sleep initiation and maintenance. The insomnia is impacting her daily functioning and contributing to work-related issues. Plan: - Continue current sleep hygiene practices - Monitor effectiveness of extended-release medication taken at dinner time - Explore additional non-pharmacologi yaneli interventions for insomnia Anxiety Assessment: Patient experiences ongoing anxiety with both somatic and cognitive symptoms. She reports a constant shake and restless leg syndrome. The anxiety appears to be exacerbated by current stressors, including pending short-term disability approval and house-related issues. Patient distinguishes between two types of anxiety: an unexplained, intense nighttime anxiety and a more typical anxiety associated with identifiable stressors. The former was severe enough to cause work cessation for two weeks due to uncontrollable shaking. Plan: - Continue current anxiety management techniques, including box breathing and meditation - Monitor effectiveness of current medication regimen - Encourage ongoing use of coping strategies for stress reduction Menopausal symptoms Assessment: Patient reports significant menopausal symptoms, including prolonged menstrual bleeding (4-month duration), hot flashes, and mood swings characterized as manic panic attacks. These symptoms are severely impacting her quality of life and sleep patterns. An OB-WOMEN SPECIALIST has recommended progesterone treatment and is planning a hysterectomy to address these issues. The patient is awaiting scheduling of the procedure. 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 This manifests as patches of blisters on her fingers and hands, coinciding with increased stress related to housing issues. The appearance of these symptoms seems to correlate with periods of conscious anxiety rather than the unexplained nighttime anxiety. Plan: - Monitor progression of dermatological symptoms - Encourage stress management techniques to potentially alleviate skin issues 07/07/2025 JAXSON (generalized anxiety disorder) (ICD-10 - F41.1) Agoraphobia-like symptoms Assessment: Patient describes symptoms characterized by a strong aversion to leaving the house rather than fear or anxiety. This behavior pattern appears to be compounded by ADHD-related executive functioning difficulties, particularly around initiating tasks like showering and getting dressed. The patient's hirsutism adds an additional layer of complexity to her grooming routine, further reinforcing avoidance behaviors. Historical context reveals that when external structure was present (e.g., foster parenting responsibilities ), the patient was able to maintain daily routines more consistently. Plan: - Continue current anti-anxiety and depression medications - Explore strategies to break down grooming tasks into smaller, more manageable steps - Discuss potential for implementing a structured daily routine to support task initiation and completion ADHD symptoms Assessment: Patient exhibits classic ADHD symptoms, including difficulty with task initiation, time management, and sustained attention. She reports frequent daydreaming and elaborate mental scenarios, which serve as a form of self-stimulation but also distract from necessary tasks. 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 There is evidence of time blindness and task paralysis, particularly when faced with delayed or overdue responsibilities . Plan: - Explore ADHD-specific coping strategies, such as breaking tasks into smaller parts and setting time limits for delays - Discuss potential benefits of external structure and routine in managing ADHD symptoms - Consider referral occupational therapy to develop personalized strategies for daily functioning - Encourage use of [id number] or audio recording for journaling and idea capture to accommodate rapid thought processes Co-parenting and custody challenges Assessment: Patient is experiencing significant emotional distress related to co-parenting difficulties. Recent events include missing her daughter's birthday for the first time and ongoing concerns about the living situation in the other parent's home. The patient reports a pattern of retaliatory behavior from the co-parent, including a CPS call following Dave asking her daughter to right sentences as a consequence. There are indications that these challenges are contributing to the patient's overall mental health struggles and perceived decline in capabilities over the past five years. Plan: - Provide supportive listening and validate patient's concerns about her daughter's well-being - Explore coping strategies for managing emotional distress related to co-parenting conflicts - Discuss potential for seeking legal advice or mediation services to address custody and communication issues - Encourage patient to document concerns and incidents related to daughter's care for potential future use - Continue to monitor impact of co-parenting stress on overall mental health and adjust treatment plan as needed 07/07/2025 Severe episode of recurrent major depressive disorder, without psychotic features (ICD-10 - F33.2) Agoraphobia-like symptoms Assessment: Patient describes symptoms characterized by a strong aversion to leaving the house rather than fear or anxiety. This behavior pattern appears to be compounded by ADHD-related executive functioning difficulties, particularly around initiating tasks like showering and getting dressed. The patient's hirsutism adds an additional layer of complexity to her grooming routine, further reinforcing avoidance behaviors. Historical context reveals that when external structure was present (e.g., foster parenting responsibilities ), the patient was able to maintain daily routines more consistently. Plan: - Continue current anti-anxiety and depression medications - Explore strategies to break down grooming tasks into smaller, more manageable steps - Discuss potential for implementing a structured daily routine to support task initiation and completion ADHD symptoms Assessment: Patient exhibits classic ADHD symptoms, including difficulty with task initiation, time management, and sustained attention. She reports frequent daydreaming and elaborate mental scenarios, which serve as a form of self-stimulation but also distract from necessary tasks. 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 There is evidence of time blindness and task paralysis, particularly when faced with delayed or overdue responsibilities . Plan: - Explore ADHD-specific coping strategies, such as breaking tasks into smaller parts and setting time limits for delays - Discuss potential benefits of external structure and routine in managing ADHD symptoms - Consider referral occupational therapy to develop personalized strategies for daily functioning - Encourage use of [id number]-ru-uqbh or audio recording for journaling and idea capture to accommodate rapid thought processes Co-parenting and custody challenges Assessment: Patient is experiencing significant emotional distress related to co-parenting difficulties. Recent events include missing her daughter's birthday for the first time and ongoing concerns about the living situation in the other parent's home. The patient reports a pattern of retaliatory behavior from the co-parent, including a CPS call following Dave asking her daughter to right sentences as a consequence. There are indications that these challenges are contributing to the patient's overall mental health struggles and perceived decline in capabilities over the past five years. Plan: - Provide supportive listening and validate patient's concerns about her daughter's well-being - Explore coping strategies for managing emotional distress related to co-parenting conflicts - Discuss potential for seeking legal advice or mediation services to address custody and communication issues - Encourage patient to document concerns and incidents related to daughter's care for potential future use - Continue to monitor impact of co-parenting stress on overall mental health and adjust treatment plan as needed 07/07/2025 Insomnia due to other mental disorder (ICD-10 - F51.05) improving 07/07/2025 JAXSON (generalized anxiety disorder) (ICD-10 - F41.1) improving 07/15/2025 JAXSON (generalized anxiety disorder) (ICD-10 - F41.1) improving Panic Attack Assessment: Patient experienced a panic attack last night, the first in a month. This occurred despite having had a good evening, suggesting potential underlying stressors or triggers. The patient's usual coping mechanism of physical proximity to her partner was unavailable due to the partner's illness and fatigue. This recent episode highlights the need for alternative coping strategies, especially when the patient's primary support person is unavailable. Plan: - Educate patient on alternative coping strategies for panic attacks: - Use of cold stimuli (ice cube, cold pack) to engage sensory grounding - Implementation of the dive reflex technique (holding breath while in contact with cold) to drop blood pressure and heart rate - Consumption of sour foods or candies for grounding - Encourage seeking physical contact with pets as an alternative grounding technique when human contact is unavailable - Advise avoiding emotionally charged media during or immediately after panic attacks Anxiety Assessment: Patient reports increased anxiety, potentially triggered by perimenopause symptoms and recent health issues. There's a notable correlation between the patient's job becoming too easy and an increase in anxiety symptoms, suggesting that lack of mental stimulation may be exacerbating her condition. The patient also expresses concern about her relationship with her mother, which she attributes to perimenopausal mood changes. She also discussed recent positive time with a friend though resulting negative beliefs about self later. These factors, combined with recent physical health challenges, appear to be contributing to a complex anxiety presentation. Plan: - Explore strategies to increase job engagement and mental stimulation to address ADHD-related understimulation - Continue monitoring anxiety symptoms in relation to perimenopause and recent health changes - Discuss potential strategies for managing work-related anxiety upon return to employment - Continue to process negative beliefs about self including thoughts on sustained happiness and perceived bragging Work-Related Stress and Return to Work Planning Assessment: Patient expresses concern about returning to work, citing current mental health challenges and a need to earn their trust again. She is planning a gradual return to work, starting with part-time hours (20 hours per week) and progressively increasing to full-time after her upcoming surgery on August 03. The patient's anxiety about work performance and reintegration suggests a need for careful planning and support during this transition period. Plan: - Assist patient in developing a structured [id number] plan: - Start with 20 hours per week, gradually increasing to 30 hours - Full-time return planned for after August 03 surgery recovery - Recommend patient discuss specific work schedule preferences with her boss (e.g., morning vs. afternoon shifts, specific days of the week) - Advise patient to request updated [place] paperwork from [employer] to support gradual return to work - Schedule follow-up appointment to review work transition progress and adjust plan as needed 07/15/2025 Severe episode of recurrent major depressive disorder, without psychotic features (ICD-10 - F33.2) Panic Attack Assessment: Patient experienced a panic attack last night, the first in a month. This occurred despite having had a good evening, suggesting potential underlying stressors or triggers. The patient's usual coping mechanism of physical proximity to her partner was unavailable due to the partner's illness and fatigue. This recent episode highlights the need for alternative coping strategies, especially when the patient's primary support person is unavailable. Plan: - Educate patient on alternative coping strategies for panic attacks: - Use of cold stimuli (ice cube, cold pack) to engage sensory grounding - Implementation of the dive reflex technique (holding breath while in contact with cold) to drop blood pressure and heart rate - Consumption of sour foods or candies for grounding - Encourage seeking physical contact with pets as an alternative grounding technique when human contact is unavailable - Advise avoiding emotionally charged media during or immediately after panic attacks Anxiety Assessment: Patient reports increased anxiety, potentially triggered by perimenopause symptoms and recent health issues. There's a notable correlation between the patient's job becoming too easy and an increase in anxiety symptoms, suggesting that lack of mental stimulation may be exacerbating her condition. The patient also expresses concern about her relationship with her mother, which she attributes to perimenopausal mood changes. She also discussed recent positive time with a friend though resulting negative beliefs about self later. These factors, combined with recent physical health challenges, appear to be contributing to a complex anxiety presentation. Plan: - Explore strategies to increase job engagement and mental stimulation to address ADHD-related understimulation - Continue monitoring anxiety symptoms in relation to perimenopause and recent health changes - Discuss potential strategies for managing work-related anxiety upon return to employment - Continue to process negative beliefs about self including thoughts on sustained happiness and perceived bragging Work-Related Stress and Return to Work Planning Assessment: Patient expresses concern about returning to work, citing current mental health challenges and a need to earn their trust again. She is planning a gradual return to work, starting with part-time hours (20 hours per week) and progressively increasing to full-time after her upcoming surgery on August 03. The patient's anxiety about work performance and reintegration suggests a need for careful planning and support during this transition period. Plan: - Assist patient in developing a structured [id number] plan: - Start with 20 hours per week, gradually increasing to 30 hours - Full-time return planned for after August 03 surgery recovery - Recommend patient discuss specific work schedule preferences with her boss (e.g., morning vs. afternoon shifts, specific days of the week) - Advise patient to request updated [place] paperwork from [employer] to support gradual return to work - Schedule follow-up appointment to review work transition progress and adjust plan as needed 07/15/2025 Attention-defici t hyperactivity disorder, predominantly inattentive type (ICD-10 - F90.0) needs improvement Panic Attack Assessment: Patient experienced a panic attack last night, the first in a month. This occurred despite having had a good evening, suggesting potential underlying stressors or triggers. The patient's usual coping mechanism of physical proximity to her partner was unavailable due to the partner's illness and fatigue. This recent episode highlights the need for alternative coping strategies, especially when the patient's primary support person is unavailable. Plan: - Educate patient on alternative coping strategies for panic attacks: - Use of cold stimuli (ice cube, cold pack) to engage sensory grounding - Implementation of the dive reflex technique (holding breath while in contact with cold) to drop blood pressure and heart rate - Consumption of sour foods or candies for grounding - Encourage seeking physical contact with pets as an alternative grounding technique when human contact is unavailable - Advise avoiding emotionally charged media during or immediately after panic attacks Anxiety Assessment: Patient reports increased anxiety, potentially triggered by perimenopause symptoms and recent health issues. There's a notable correlation between the patient's job becoming too easy and an increase in anxiety symptoms, suggesting that lack of mental stimulation may be exacerbating her condition. The patient also expresses concern about her relationship with her mother, which she attributes to perimenopausal mood changes. She also discussed recent positive time with a friend though resulting negative beliefs about self later. These factors, combined with recent physical health challenges, appear to be contributing to a complex anxiety presentation. Plan: - Explore strategies to increase job engagement and mental stimulation to address ADHD-related understimulation - Continue monitoring anxiety symptoms in relation to perimenopause and recent health changes - Discuss potential strategies for managing work-related anxiety upon return to employment - Continue to process negative beliefs about self including thoughts on sustained happiness and perceived bragging Work-Related Stress and Return to Work Planning Assessment: Patient expresses concern about returning to work, citing current mental health challenges and a need to earn their trust again. She is planning a gradual return to work, starting with part-time hours (20 hours per week) and progressively increasing to full-time after her upcoming surgery on August 03. The patient's anxiety about work performance and reintegration suggests a need for careful planning and support during this transition period. Plan: - Assist patient in developing a structured [id number] plan: - Start with 20 hours per week, gradually increasing to 30 hours - Full-time return planned for after August 03 surgery recovery - Recommend patient discuss specific work schedule preferences with her boss (e.g., morning vs. afternoon shifts, specific days of the week) - Advise patient to request updated [facility] paperwork from [employer] to support gradual return to work - Schedule follow-up appointment to review work transition progress and adjust plan as needed 07/07/2025 Major depressive disorder, recurrent severe without psychotic features (ICD-10 - F33.2) improving Assessment and plan reviewed with patient Call for problems with medication, side effects or need for dosage change Compliance issues reviewed Discussed the risks/benefits of this medication Discussed medication side effects Return if symptoms worsen Treatment options reviewed. discussed that it can take weeks to see full therapeutic effects of psychotropic medications. discussed when to seek emergency services. discussed crisis prevention hotline [id number]. 06/16/2025 Severe episode of recurrent major depressive disorder, without psychotic features (ICD-10 - F33.2) Insomnia Assessment: Patient reports chronic insomnia exacerbated by anxiety and menopausal symptoms. She describes difficulty falling asleep until approximately 5 AM, with sleep not being restful. Despite implementing sleep hygiene practices such as box breathing, meditation, avoiding screen time before bed, and maintaining a cool sleeping environment, the patient continues to struggle with sleep initiation and maintenance. The insomnia is impacting her daily functioning and contributing to work-related issues. Plan: - Continue current sleep hygiene practices - Monitor effectiveness of extended-release medication taken at dinner time - Explore additional non-pharmacologi yaneli interventions for insomnia Anxiety Assessment: Patient experiences ongoing anxiety with both somatic and cognitive symptoms. She reports a constant shake and restless leg syndrome. The anxiety appears to be exacerbated by current stressors, including pending short-term disability approval and house-related issues. Patient distinguishes between two types of anxiety: an unexplained, intense nighttime anxiety and a more typical anxiety associated with identifiable stressors. The former was severe enough to cause work cessation for two weeks due to uncontrollable shaking. Plan: - Continue current anxiety management techniques, including box breathing and meditation - Monitor effectiveness of current medication regimen - Encourage ongoing use of coping strategies for stress reduction Menopausal symptoms Assessment: Patient reports significant menopausal symptoms, including prolonged menstrual bleeding (4-month duration), hot flashes, and mood swings characterized as manic panic attacks. These symptoms are severely impacting her quality of life and sleep patterns. An OB-WOMEN SPECIALIST has recommended progesterone treatment and is planning a hysterectomy to address these issues. The patient is awaiting scheduling of the procedure. 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 This manifests as patches of blisters on her fingers and hands, coinciding with increased stress related to housing issues. The appearance of these symptoms seems to correlate with periods of conscious anxiety rather than the unexplained nighttime anxiety. Plan: - Monitor progression of dermatological symptoms - Encourage stress management techniques to potentially alleviate skin issues 07/07/2025 Attention-defici t hyperactivity disorder, predominantly inattentive type (ICD-10 - F90.0) Agoraphobia-like symptoms Assessment: Patient describes symptoms characterized by a strong aversion to leaving the house rather than fear or anxiety. This behavior pattern appears to be compounded by ADHD-related executive functioning difficulties, particularly around initiating tasks like showering and getting dressed. The patient's hirsutism adds an additional layer of complexity to her grooming routine, further reinforcing avoidance behaviors. Historical context reveals that when external structure was present (e.g., foster parenting responsibilities ), the patient was able to maintain daily routines more consistently. Plan: - Continue current anti-anxiety and depression medications - Explore strategies to break down grooming tasks into smaller, more manageable steps - Discuss potential for implementing a structured daily routine to support task initiation and completion ADHD symptoms Assessment: Patient exhibits classic ADHD symptoms, including difficulty with task initiation, time management, and sustained attention. She reports frequent daydreaming and elaborate mental scenarios, which serve as a form of self-stimulation but also distract from necessary tasks. 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 There is evidence of time blindness and task paralysis, particularly when faced with delayed or overdue responsibilities . Plan: - Explore ADHD-specific coping strategies, such as breaking tasks into smaller parts and setting time limits for delays - Discuss potential benefits of external structure and routine in managing ADHD symptoms - Consider referral occupational therapy to develop personalized strategies for daily functioning - Encourage use of [id number]-rmdd or audio recording for journaling and idea capture to accommodate rapid thought processes Co-parenting and custody challenges Assessment: Patient is experiencing significant emotional distress related to co-parenting difficulties. Recent events include missing her daughter's birthday for the first time and ongoing concerns about the living situation in the other parent's home. The patient reports a pattern of retaliatory behavior from the co-parent, including a CPS call following Dave asking her daughter to right sentences as a consequence. There are indications that these challenges are contributing to the patient's overall mental health struggles and perceived decline in capabilities over the past five years. Plan: - Provide supportive listening and validate patient's concerns about her daughter's well-being - Explore coping strategies for managing emotional distress related to co-parenting conflicts - Discuss potential for seeking legal advice or mediation services to address custody and communication issues - Encourage patient to document concerns and incidents related to daughter's care for potential future use - Continue to monitor impact of co-parenting stress on overall mental health and adjust treatment plan as needed 06/06/2025 Marijuana use (ICD-10 - F12.90) improving 06/06/2025 Attention-defici t hyperactivity disorder, predominantly inattentive type (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 This positive outcome may be attributed to either the patient's improved coping strategies or the effectiveness of prescribed medication. The patient describes typical panic attack symptoms including hot flashes, nausea, dietary issues, sleep disturbances, agitation, and a feeling of the world crushing her. The absence of a full panic attack despite these symptoms suggests progress in managing her condition. Plan: - Continue current medication regimen for panic attacks - Reinforce use of coping strategies that prevented full panic attack - Encourage patient to track frequency and intensity of prodromal symptoms Perimenopausal Symptoms Assessment: Patient reports experiencing severe hot flashes, particularly at night, which are disrupting her sleep. These symptoms, along with the reported menstrual cramps, suggest perimenopausal changes. The hot flashes are described as intense, causing sweating and temperature regulation difficulties. These symptoms are impacting the patient's quality of life and may be exacerbating her anxiety and mood issues. Plan: - Follow up with director market intelligence is scheduled later this month - Explore non-hormonal options for managing hot flashes (e.g., lifestyle modifications, ice) - Recommend sleep hygiene techniques to improve sleep quality Co-parenting Challenges Assessment: Patient reports ongoing difficulties in co-parenting with her ex-, who has a history of bipolar disorder. Communication is limited to a court-mandated may. The patient has identified patterns in her ex-'s manic episodes, typically occurring in March/April and between and . Recent holidays were reported as smoother than in previous years. These challenges are contributing to the patient's overall stress and anxiety. Plan: - Continue using court-mandated communication may for co-parenting interactions - Provide strategies for maintaining boundaries and reducing conflict in co-parenting relationship - Discuss coping mechanisms for managing stress related to ex-'s manic episodes Work-related Stress and Communication Difficulties Assessment: Patient reports decreased work performance and communication difficulties. She expresses feeling overwhelmed by notifications, interpreting them as indications of being in trouble. This suggests heightened anxiety and potential cognitive distortions related to work responsibilities . The patient's ability to function in her work environment appears to be impacted by her current mental health symptoms. She is currently taking time off work to focus on her overall mental health. Plan: - Explore cognitive-behavi oral strategies to address work-related anxiety and cognitive distortions - Discuss time management and prioritization techniques to improve work performance - Consider gradual exposure to notifications to reduce associated anxiety Parenting Concerns Assessment: Patient expresses concern about her ability to support her 14-year-old daughter, who has a significant trauma history and exhibits anxiety symptoms. The daughter continues to experience enuresis, wearing pull-ups at night, which is causing social challenges. The patient feels ill-equipped to provide appropriate emotional support due to her own anxiety issues. This situation is contributing to the patient's overall stress and feelings of inadequacy as a parent. Plan: - Provide psychoeducation on trauma-informed parenting techniques - Discuss strategies for supporting daughter's anxiety while managing own symptoms 05/24/2025 Marijuana use (ICD-10 - F12.90) improving 05/31/2025 Attention-defici t hyperactivity disorder, predominantly inattentive type (ICD-10 - F90.0) Generalized Anxiety Disorder with work-related impairment Assessment: Patient reports significant anxiety symptoms that have intensified since April, particularly in relation to work responsibilities . Symptoms include difficulty communicating, inability to concentrate, task incompletion, and avoidance behaviors (e.g., inability to read messages from boss, pacing). Patient describes feeling paralyzed and experiencing a constant sense of impending doom. These symptoms are causing significant impairment in occupational functioning, with the patient feeling unable to perform essential job functions. The anxiety appears to be exacerbated by work-related stressors and feelings of guilt. Patient has a history of complex PTSD, which may be contributing to her current presentation. Recent medication changes, including the addition of Lexapro, have shown some improvement in reducing the doom feeling, but anxiety symptoms persist. Plan: - Continue Lexapro as prescribed by Brian - Recommend leave of absence from work for approximately 3 months to focus on mental health - Establish daily routine during leave, including: - Regular wake-up time - Daily shower - Structured activities (e.g., packing in the morning, enjoyable activities in the afternoon) - Encourage implementation of coping mechanisms and positive habits - Practice breathing techniques, particularly 3-minute exercises - Schedule follow-up appointment to reassess symptoms and work readiness Attention-Defici t/Hyperactivity Disorder (ADHD) Assessment: Patient has a long-standing diagnosis of ADHD since first grade. She reports difficulty concentrating, task completion issues, and racing thoughts, which are exacerbating her anxiety symptoms. Patient discontinued stimulant medication during COVID due to access issues and attempted a trial of atomoxetine, which resulted in a negative reaction. Currently, ADHD symptoms are contributing to work-related difficulties and overall mental health concerns. Patient expresses a desire to address anxiety first before reconsidering ADHD management. Plan: - Defer specific ADHD treatment at this time, focusing primarily on anxiety management - Reassess need for ADHD-specific interventions after stabilization of anxiety symptoms - Continue to monitor impact of ADHD symptoms on overall functioning Gynecological issues (prolonged menstruation, uterine polyps) Assessment: Patient reports ongoing menstruation for 4 months, which she believes is exacerbating her mental health symptoms. Recent biopsy revealed non-cancerous uterine polyps. Patient has a history of ovarian cysts and is considering treatment options, including ablation or hysterectomy. These gynecological issues may be contributing to hormonal imbalances and subsequent mood disturbances. Plan: - Attend scheduled appointment on June 17 to discuss treatment options (ablation vs. hysterectomy) - Monitor impact of gynecological symptoms on mental health - Coordinate mental health treatment with any planned gynecological interventions 05/24/2025 Attention-defici t hyperactivity disorder, predominantly inattentive type (ICD-10 - F90.0) Anxiety with possible perimenopausal exacerbation Assessment: Patient reports significant anxiety symptoms, which she attributes to perimenopause. She describes feeling overwhelmed, particularly when alone, despite positive life circumstances (new house, supportive partner). The anxiety appears to be impacting her daily functioning and ability to engage fully in her personal and professional life. Patient has a history of childhood trauma and difficult family relationships, which may contribute to her current psychological state. Recent life events, including her father's suicide and ongoing co-parenting challenges, are likely exacerbating her anxiety. Current antidepressant treatment appears to have variable effectiveness, possibly due to hormonal fluctuations. Plan: - Patient to proceed with short-term disability leave from work to manage stress - Continue current antidepressant medication as prescribed by Brian - Follow up with [facility] for potential ablation or hysterectomy to address hormonal issues - Continue therapy sessions to address anxiety and past trauma - Continue distress tolerance skill TIP - Avoid alcohol consumption due to potential negative interaction with anxiety symptoms - Monitor effectiveness of current treatment plan and adjust as necessary ADHD management Assessment: Patient has a diagnosis of ADHD, which appears to impact her daily functioning, particularly in areas of organization and task completion. She reports difficulties with storage solutions and maintaining order in her living space, which exacerbates her stress levels. The patient's ADHD symptoms may be interacting with her anxiety, creating additional challenges in managing her daily life and responsibilities . Plan: - Explore and implement ADHD-friendly storage and organization strategies - Monitor impact of ADHD symptoms on overall functioning and anxiety levels Parenting challenges and concerns for daughter's well-being Assessment: Patient expresses concern about her daughter's well-being, particularly regarding the time spent at her ex-'s home. She reports that her daughter exhibits mood changes and withdrawal behaviors after visits, possibly due to overstimulation and lack of attention in a crowded household. The patient is also managing age-appropriate discussions about menstruation and her own health issues with her daughter. Plan: - Continue to advocate for therapy for daughter - Maintain open communication with daughter about health-related topics - Monitor daughter's behavior and well-being, particularly after visits with ex- - Encourage daughter's participation in positive activities (e.g., [employer], [employer]) - Address concerns about daughter's living situation with ex- as appropriate 05/16/2025 Attention-defici t hyperactivity disorder, predominantly inattentive type (ICD-10 - F90.0) Medication Adjustment and Mental Health Symptoms Assessment: Patient is currently transitioning between medications, which is causing fluctuations in her mental state. She reports feeling like her brain is spinning and experiencing racing thoughts, which is atypical compared to her usual depressive symptoms. The medication adjustment is likely contributing to her current state of increased anxiety, sleep disturbances, and difficulty concentrating. These symptoms are impacting her daily functioning, including her ability to leave the house and maintain personal hygiene. Plan: - Continue current medication transition as prescribed by Brian - Encourage patient to communicate with psychiatrist about side effects and concerns - Recommend in-person follow-up appointments to address agoraphobia symptoms - Continue using TIP skills for managing racing thoughts and anxiety - Explore alternative stress-reduction techniques that are less physically demanding than gardening -Encourage continued follow up with PCP for physical health related concerns ADHD Symptom Exacerbation Assessment: Patient has a long-standing diagnosis of ADHD, which appears to be exacerbated by current hormonal changes and medication adjustments. She reports increased difficulty with focus, particularly noting an inability to read books, which she identifies as impacting her mental health. The patient also mentions experiencing language dysphasia, which may be related to her ADHD. Plan: - Explore strategies to improve focus and concentration, particularly for reading including weighted blanket - Monitor language dysphasia symptoms and their impact on daily functioning - Discuss potential adjustments to ADHD management with psychiatrist if symptoms persist 05/06/2025 Attention-defici t hyperactivity disorder, predominantly inattentive type (ICD-10 - F90.0) Anxiety with panic attacks Assessment: Patient reports experiencing severe anxiety with panic attacks, described as crippling and causing missed work. Symptoms include chest heaviness, racing thoughts, and internalized distress. The anxiety appears to be a recent exacerbation, as the patient states it was previously manageable. Current stressors include early menopause and hormonal changes, which may be contributing to the intensification of symptoms. Patient's history of childhood trauma and recent losses (father's suicide, brother's ) may also be factors in the current presentation. Plan: - Provide patient with handout on distress tolerance skills (TIP: Temperature, Intense exercise, Paced breathing, Paired muscle relaxation) - Encourage resumption of previously helpful activities such as running and dancing - Schedule weekly therapy sessions Depression Assessment: Patient presents with symptoms of depression, including anhedonia, social withdrawal, and difficulty getting out of bed. She describes herself as not myself and reports increased irritability and short-temperedne ss. The patient's history of depression is noted, but the current episode appears more severe, impacting daily functioning and self-care. Recent life stressors, including early menopause and past trauma, may be contributing to the depressive symptoms. Plan: - Implement Cognitive Behavioral Therapy techniques to address negative thought patterns and self-talk - Encourage continuation of gardening as a therapeutic activity Dissociation Assessment: Patient reports recent onset of dissociative episodes, which she describes as disappearing. This is a recurrence of a coping mechanism used in childhood, but not experienced since early adulthood. The reemergence of dissociation may be related to current stressors and unresolved childhood trauma. Plan: - Educate patient on grounding techniques to manage dissociative episodes - Explore childhood experiences and their potential connection to current dissociative symptoms Substance use Assessment: Patient reports recent increase in alcohol consumption, which had become a daily activity. She is currently abstinent from alcohol. Marijuana use for pain management is noted. The increase in alcohol use may have been a maladaptive coping mechanism for managing increased anxiety and depression. Plan: - Monitor alcohol abstinence and provide support for continued sobriety Sleep disturbance Assessment: Patient reports sleeping an average of 5 hours per night, with nightly awakening at 3 AM. She experiences difficulty returning to sleep on some occasions. This sleep pattern may be contributing to or exacerbating her anxiety and depression symptoms. Plan: - Provide sleep hygiene education - Incorporate sleep management techniques into overall treatment plan 05/05/2025 Marijuana use (ICD-10 - F12.90) 04/05/2025 Severe episode of recurrent major depressive disorder, without psychotic features (ICD-10 - F33.2) 02/25/2025 Encounter for screening for depression (ICD-10 - Z13.31) 02/25/2025 Marijuana use (ICD-10 - F12.90) 04/05/2025 Marijuana use (ICD-10 - F12.90) 05/05/2025 Attention-defici t hyperactivity disorder, predominantly inattentive type (ICD-10 - F90.0) 05/16/2025 Encounter for screening for depression (ICD-10 - Z13.31) Medication Adjustment and Mental Health Symptoms Assessment: Patient is currently transitioning between medications, which is causing fluctuations in her mental state. She reports feeling like her brain is spinning and experiencing racing thoughts, which is atypical compared to her usual depressive symptoms. The medication adjustment is likely contributing to her current state of increased anxiety, sleep disturbances, and difficulty concentrating. These symptoms are impacting her daily functioning, including her ability to leave the house and maintain personal hygiene. Plan: - Continue current medication transition as prescribed by Brian - Encourage patient to communicate with psychiatrist about side effects and concerns - Recommend in-person follow-up appointments to address agoraphobia symptoms - Continue using TIP skills for managing racing thoughts and anxiety - Explore alternative stress-reduction techniques that are less physically demanding than gardening -Encourage continued follow up with PCP for physical health related concerns ADHD Symptom Exacerbation Assessment: Patient has a long-standing diagnosis of ADHD, which appears to be exacerbated by current hormonal changes and medication adjustments. She reports increased difficulty with focus, particularly noting an inability to read books, which she identifies as impacting her mental health. The patient also mentions experiencing language dysphasia, which may be related to her ADHD. Plan: - Explore strategies to improve focus and concentration, particularly for reading including weighted blanket - Monitor language dysphasia symptoms and their impact on daily functioning - Discuss potential adjustments to ADHD management with psychiatrist if symptoms persist 05/06/2025 Marijuana use (ICD-10 - F12.90) Anxiety with panic attacks Assessment: Patient reports experiencing severe anxiety with panic attacks, described as crippling and causing missed work. Symptoms include chest heaviness, racing thoughts, and internalized distress. The anxiety appears to be a recent exacerbation, as the patient states it was previously manageable. Current stressors include early menopause and hormonal changes, which may be contributing to the intensification of symptoms. Patient's history of childhood trauma and recent losses (father's suicide, brother's ) may also be factors in the current presentation. Plan: - Provide patient with handout on distress tolerance skills (TIP: Temperature, Intense exercise, Paced breathing, Paired muscle relaxation) - Encourage resumption of previously helpful activities such as running and dancing - Schedule weekly therapy sessions Depression Assessment: Patient presents with symptoms of depression, including anhedonia, social withdrawal, and difficulty getting out of bed. She describes herself as not myself and reports increased irritability and short-temperedne ss. The patient's history of depression is noted, but the current episode appears more severe, impacting daily functioning and self-care. Recent life stressors, including early menopause and past trauma, may be contributing to the depressive symptoms. Plan: - Implement Cognitive Behavioral Therapy techniques to address negative thought patterns and self-talk - Encourage continuation of gardening as a therapeutic activity Dissociation Assessment: Patient reports recent onset of dissociative episodes, which she describes as disappearing. This is a recurrence of a coping mechanism used in childhood, but not experienced since early adulthood. The reemergence of dissociation may be related to current stressors and unresolved childhood trauma. Plan: - Educate patient on grounding techniques to manage dissociative episodes - Explore childhood experiences and their potential connection to current dissociative symptoms Substance use Assessment: Patient reports recent increase in alcohol consumption, which had become a daily activity. She is currently abstinent from alcohol. Marijuana use for pain management is noted. The increase in alcohol use may have been a maladaptive coping mechanism for managing increased anxiety and depression. Plan: - Monitor alcohol abstinence and provide support for continued sobriety Sleep disturbance Assessment: Patient reports sleeping an average of 5 hours per night, with nightly awakening at 3 AM. She experiences difficulty returning to sleep on some occasions. This sleep pattern may be contributing to or exacerbating her anxiety and depression symptoms. Plan: - Provide sleep hygiene education - Incorporate sleep management techniques into overall treatment plan 05/24/2025 Encounter for screening for depression (ICD-10 - Z13.31) Anxiety with possible perimenopausal exacerbation Assessment: Patient reports significant anxiety symptoms, which she attributes to perimenopause. She describes feeling overwhelmed, particularly when alone, despite positive life circumstances (new house, supportive partner). The anxiety appears to be impacting her daily functioning and ability to engage fully in her personal and professional life. Patient has a history of childhood trauma and difficult family relationships, which may contribute to her current psychological state. Recent life events, including her father's suicide and ongoing co-parenting challenges, are likely exacerbating her anxiety. Current antidepressant treatment appears to have variable effectiveness, possibly due to hormonal fluctuations. Plan: - Patient to proceed with short-term disability leave from work to manage stress - Continue current antidepressant medication as prescribed by Brian - Follow up with [facility] for potential ablation or hysterectomy to address hormonal issues - Continue therapy sessions to address anxiety and past trauma - Continue distress tolerance skill TIP - Avoid alcohol consumption due to potential negative interaction with anxiety symptoms - Monitor effectiveness of current treatment plan and adjust as necessary ADHD management Assessment: Patient has a diagnosis of ADHD, which appears to impact her daily functioning, particularly in areas of organization and task completion. She reports difficulties with storage solutions and maintaining order in her living space, which exacerbates her stress levels. The patient's ADHD symptoms may be interacting with her anxiety, creating additional challenges in managing her daily life and responsibilities . Plan: - Explore and implement ADHD-friendly storage and organization strategies - Monitor impact of ADHD symptoms on overall functioning and anxiety levels Parenting challenges and concerns for daughter's well-being Assessment: Patient expresses concern about her daughter's well-being, particularly regarding the time spent at her ex-'s home. She reports that her daughter exhibits mood changes and withdrawal behaviors after visits, possibly due to overstimulation and lack of attention in a crowded household. The patient is also managing age-appropriate discussions about menstruation and her own health issues with her daughter. Plan: - Continue to advocate for therapy for daughter - Maintain open communication with daughter about health-related topics - Monitor daughter's behavior and well-being, particularly after visits with ex- - Encourage daughter's participation in positive activities (e.g., [employer], [employer]) - Address concerns about daughter's living situation with ex- as appropriate 05/24/2025 Attention-defici t hyperactivity disorder, predominantly inattentive type (ICD-10 - F90.0) 06/06/2025 Attention-defici t hyperactivity disorder, predominantly inattentive type (ICD-10 - F90.0) 06/16/2025 Insomnia due to other mental disorder (ICD-10 - F51.05) Insomnia Assessment: Patient reports chronic insomnia exacerbated by anxiety and menopausal symptoms. She describes difficulty falling asleep until approximately 5 AM, with sleep not being restful. Despite implementing sleep hygiene practices such as box breathing, meditation, avoiding screen time before bed, and maintaining a cool sleeping environment, the patient continues to struggle with sleep initiation and maintenance. The insomnia is impacting her daily functioning and contributing to work-related issues. Plan: - Continue current sleep hygiene practices - Monitor effectiveness of extended-release medication taken at dinner time - Explore additional non-pharmacologi yaneli interventions for insomnia Anxiety Assessment: Patient experiences ongoing anxiety with both somatic and cognitive symptoms. She reports a constant shake and restless leg syndrome. The anxiety appears to be exacerbated by current stressors, including pending short-term disability approval and house-related issues. Patient distinguishes between two types of anxiety: an unexplained, intense nighttime anxiety and a more typical anxiety associated with identifiable stressors. The former was severe enough to cause work cessation for two weeks due to uncontrollable shaking. Plan: - Continue current anxiety management techniques, including box breathing and meditation - Monitor effectiveness of current medication regimen - Encourage ongoing use of coping strategies for stress reduction Menopausal symptoms Assessment: Patient reports significant menopausal symptoms, including prolonged menstrual bleeding (4-month duration), hot flashes, and mood swings characterized as manic panic attacks. These symptoms are severely impacting her quality of life and sleep patterns. An OB-WOMEN SPECIALIST has recommended progesterone treatment and is planning a hysterectomy to address these issues. The patient is awaiting scheduling of the procedure. 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 This manifests as patches of blisters on her fingers and hands, coinciding with increased stress related to housing issues. The appearance of these symptoms seems to correlate with periods of conscious anxiety rather than the unexplained nighttime anxiety. Plan: - Monitor progression of dermatological symptoms - Encourage stress management techniques to potentially alleviate skin issues 07/07/2025 Attention-defici t hyperactivity disorder, predominantly inattentive type (ICD-10 - F90.0) needs improvement 04/05/2025 Encounter for screening for depression (ICD-10 - Z13.31) 07/07/2025 Marijuana use (ICD-10 - F12.90) improving 05/06/2025 Encounter for screening for depression (ICD-10 - Z13.31) Anxiety with panic attacks Assessment: Patient reports experiencing severe anxiety with panic attacks, described as crippling and causing missed work. Symptoms include chest heaviness, racing thoughts, and internalized distress. The anxiety appears to be a recent exacerbation, as the patient states it was previously manageable. Current stressors include early menopause and hormonal changes, which may be contributing to the intensification of symptoms. Patient's history of childhood trauma and recent losses (father's suicide, brother's ) may also be factors in the current presentation. Plan: - Provide patient with handout on distress tolerance skills (TIP: Temperature, Intense exercise, Paced breathing, Paired muscle relaxation) - Encourage resumption of previously helpful activities such as running and dancing - Schedule weekly therapy sessions Depression Assessment: Patient presents with symptoms of depression, including anhedonia, social withdrawal, and difficulty getting out of bed. She describes herself as not myself and reports increased irritability and short-temperedne ss. The patient's history of depression is noted, but the current episode appears more severe, impacting daily functioning and self-care. Recent life stressors, including early menopause and past trauma, may be contributing to the depressive symptoms. Plan: - Implement Cognitive Behavioral Therapy techniques to address negative thought patterns and self-talk - Encourage continuation of gardening as a therapeutic activity Dissociation Assessment: Patient reports recent onset of dissociative episodes, which she describes as disappearing. This is a recurrence of a coping mechanism used in childhood, but not experienced since early adulthood. The reemergence of dissociation may be related to current stressors and unresolved childhood trauma. Plan: - Educate patient on grounding techniques to manage dissociative episodes - Explore childhood experiences and their potential connection to current dissociative symptoms Substance use Assessment: Patient reports recent increase in alcohol consumption, which had become a daily activity. She is currently abstinent from alcohol. Marijuana use for pain management is noted. The increase in alcohol use may have been a maladaptive coping mechanism for managing increased anxiety and depression. Plan: - Monitor alcohol abstinence and provide support for continued sobriety Sleep disturbance Assessment: Patient reports sleeping an average of 5 hours per night, with nightly awakening at 3 AM. She experiences difficulty returning to sleep on some occasions. This sleep pattern may be contributing to or exacerbating her anxiety and depression symptoms. Plan: - Provide sleep hygiene education - Incorporate sleep management techniques into overall treatment plan 04/05/2025 Encounter for screening for cardiovascular disorders (ICD-10 - Z13.6) 02/25/2025 Other Learning About Depression Screening material was printed, Fluoxetine material was published Dave is a female patient with a history of multiple surgeries, including spinal fusions and rotator cuff repair, presenting with severe anxiety (rated 10/10) and moderate depression (rated 5/10), complicated by agoraphobia and sleep disturbances. Generalized Anxiety Disorder with Agoraphobia Assessment: Patient reports severe anxiety, rating it 10/10. She describes agoraphobic symptoms, stating this is only the third time she has left her house this week. Previous medication trials include atomoxetine, which was discontinued, and hydroxyzine. Patient expresses concern about medications that might increase anxiety. Recent psychosocial stressors include her father's suicide this year and her [id number]'s current critical health condition. These factors likely contribute to the exacerbation of her anxiety symptoms. Plan: - Start sertraline 50 MG for anxiety and depression - Informed patient it may take weeks for full effect - Discussed potential side effects, including initial GI disturbances (nausea, vomiting, diarrhea) - Prescribe hydroxyzine for acute anxiety management until sertraline takes effect - Recommend online therapy options due to patient's agoraphobia and difficulty leaving home - Follow up to assess medication efficacy and side effects Major Depressive Disorder Assessment: Patient rates her depression as 5/10. She reports significant sleep disturbances, either wanting to sleep constantly or having difficulty falling asleep, with consistent 3 AM awakenings. Appetite is severely decreased, only able to eat one bite of mashed potatoes today. Previous trials of antidepressants include escitalopram (Lexapro), which made her feel nothing, and colchicine during her divorce, which almost made [her] manic. No current suicidal ideation or self-harm thoughts reported. Plan: - Initiate sertraline 50 MG daily - Monitor for improvement in depressive symptoms, particularly sleep and appetite - Assess for any manic symptoms given previous reaction to colchicine Cannabis Use Assessment: Patient reports daily use of marijuana. The extent and impact of use on her psychiatric symptoms were not fully explored in this session. Plan: - Further assess impact of cannabis use on anxiety and depression symptoms at follow-up - discussed marijuana use and it's effects on mental illness. The note is transcribed using speech recognition software. It is a reflection of a visit with the patient. It might have some inaccuracy, including medication names and transcribing errors, though efforts have been made to correct them. 04/05/2025 Other Propranolol (Cardiovascula r) material was printed Major Depressive Disorder Assessment: Patient reports improvement in depressive symptoms with sertraline, particularly noting reduced anxiety. Milner Depression Inventory score has decreased from 52 to 22, indicating significant improvement but still suggesting moderate depression. Patient continues to experience executive dysfunction, lack of motivation, and difficulty being present at work. Given the residual symptoms and high BDI score, an increase in medication dosage is warranted. Plan: - Increase sertraline from 50mg to 100mg (2x50mg tablets) until current prescription runs out - Further increase sertraline to 150mg (capsule form) after current prescription is finished - Continue hydroxyzine at night for sleep - Follow up to assess response to increased medication dosage Generalized Anxiety Disorder with Panic Attacks Assessment: Patient reports improvement in anxiety symptoms with sertraline, noting reduced spiraling. However, anxiety remains at a 6-7/10 level, which the patient describes as unmanageable. Panic attacks have decreased, with the patient no longer experiencing 3-minute panic attacks upon waking. Hydroxyzine is reported to be helpful for anxiety management, primarily through its sedating effects. Plan: - Continue hydroxyzine as needed for anxiety - Monitor anxiety symptoms with sertraline dose increase - Start propranolol 10 mg tab (0.5 tablet) HS. (with heart rate parameters, hold if HR <60BPM) Restless Legs Syndrome (medication side effect) Assessment: Patient reports significant worsening of restless legs syndrome symptoms since starting sertraline, experiencing leg restlessness every night after taking the medication. This side effect is impacting sleep quality and comfort. Plan: - Start propranolol 10mg for restless legs syndrome - Begin with half tablet - Continue hydroxyzine at night Possible Attention-Defici t/Hyperactivity Disorder (ADHD) Assessment: Patient reports ongoing difficulty with concentration and executive function, which may be indicative of underlying ADHD. However, these symptoms could also be related to residual depression or anxiety. Further evaluation is needed once mood symptoms are stabilized. Plan: - Consider ADHD testing in the future once mood is stabilized The note is transcribed using speech recognition software. It is a reflection of a visit with the patient. It might have some inaccuracy, including medication names and transcribing errors, though efforts have been made to correct them. 05/05/2025 Other Escitalopram material was published, Escitalopram material was printed Major Depressive Disorder with Anxiety Assessment: Patient reports recent exacerbation of depressive and anxiety symptoms after discontinuing sertraline 100 mg due to joint pain and urinary difficulties. Prior to discontinuatio n, BDI score had improved from 52 to 22. Patient experienced a severe depressive episode following medication cessation, including neglect of personal hygiene. Current symptoms include sleep disturbances (hypersomnia or insomnia), appetite changes (inability to eat for 3 days), and occupational impairment. Patient also reports dissociation, timidity, and self-directed irritability. Previous trials of fluoxetine and escitalopram (Lexapro) were unsuccessful due to side effects or lack of efficacy. Recent stressors include fear of job loss due to performance issues. Plan: - Start escitalopram 10 mg PO daily - Take half tablet (5 mg) for 7 days, then increase to full tablet (10 mg) - Informed patient of potential side effects: nausea, vomiting, diarrhea, upset stomach, headaches, and increased suicidal thoughts (particularly in patients 25 years and younger) - Advised that anhedonia may occur initially but typically resolves - Continue hydroxyzine as needed for anxiety - Continue propranolol as prescribed - Provided printed information about escitalopram - Recommended calling at 8 AM for walk-in therapist appointment - Advised downloading a specific may (details not provided in transcript) - Follow up after medication initiation (timing not specified) Substance Use - Cannabis Assessment: Patient reports continued use of marijuana, though with recent decrease in consumption. Patient expresses using marijuana as a coping mechanism for pain and avoidance behaviors. Plan: - Encouraged reduction in marijuana use - Recommended initiation of therapy to address underlying issues and develop healthier coping strategies The note is transcribed using speech recognition software. It is a reflection of a visit with the patient. It might have some inaccuracy, including medication names and transcribing errors, though efforts have been made to correct them. 05/24/2025 Other Quetiapine material was printed 1. Generalized Anxiety Disorder - Patient reports ongoing anxiety symptoms, including excessive worry, restlessness, and irritability. - Recent severe panic attack experienced. - Anxiety impacting daily functioning and sleep. - Plan: a. Increase Lexapro to 20 mg PO daily. b. Continue hydroxyzine 25 mg to 50 mg PRN. c. Continue propranolol 10 mg at night for restlessness. d. Educate patient on expected timeline for SSRI efficacy (4-8 weeks). e. Encourage use of non-pharmacolo gical anxiety management techniques. 2. Insomnia - Patient reports chronic sleep disturbances with recent exacerbation. - Average of 4 hours of sleep per night, occasionally 2-3 hours. - Poor and restless sleep quality. - Plan: a. Initiate quetiapine 25 mg PO at bedtime for insomnia/anxie ty/depression b. Educate patient on potential daytime drowsiness. c. Inform patient about quetiapine's use as emergency anxiety medication. d. Provide sleep hygiene education. 3. Major Depressive Disorder - Patient endorses ongoing depressive symptoms. - Depression rated as 7/10. - Plan: a. Increase Lexapro 20 mg daily b. Monitor for improvement in depressive symptoms with medication adjustment. c. Encourage continued engagement in psychotherapy. 4. Substance Use - Patient reports ongoing marijuana use, primarily for pain management. - Plan: a. Continue to monitor marijuana use and its impact on overall mental health and treatment efficacy. 06/06/2025 Other 1. Major Depressive Disorder - Patient reports improvement in depressive symptoms with Lexapro 20 mg. - Experiencing increased irritability, started about a week ago and slightly worsened. - Current depression rating is 7/10. - Plan: a. Continue Lexapro 20 mg daily b. Educate patient on expected side effects, including temporary irritability and sleep disturbances. c. Follow up in 4 weeks or sooner if needed. d. Monitor for resolution of irritability within 1-2 weeks. 2. Generalized Anxiety Disorder - Current anxiety rating of 7/10. - Decreased use of hydroxyzine, still utilized for work-related stress. - Successfully prevented a panic attack by recognizing early symptoms. - Plan: a. Continue hydroxyzine as needed for anxiety symptoms. b. Continue propranolol in conjunction with hydroxyzine for physical anxiety symptoms. c. Encourage continued use of anxiety management techniques. d. continue therapy with Yue 3. Insomnia - Poor sleep quality despite increased total sleep time. - Current quetiapine dose helping with sleep initiation but not providing restorative sleep. - Frequent awakenings and feels tired upon waking. - Plan: a. Change quetiapine to extended-relea se formulation, 50 mg PO qhs. b. Instruct patient to take 4 hours before bedtime. c. Educate on potential for improved sleep quality and daytime agitation management. d. Recommend [id number] er Calmaid and magnesium supplement for additional sleep support. e. encourage sleep hygiene. 07/07/2025 Other Buspirone material was published 1. Major Depressive Disorder - Patient rates depression at 03/05. - Plan: a. Continue Lexapro 20 mg daily. b. Follow up in one month to assess medication efficacy and side effects. c. continue therapy with Y[facility]. 2. Generalized Anxiety Disorder - Patient reports continued anxiety - Reports difficulty concentrating related to anxiety and depression symptoms. - Plan: a. Continue propranolol b. start BuSpar 5 BID for anxiety. c. Continue hydroxyzine as needed. d. continue therapy with Yue. 3. Insomnia - Patient reports ongoing sleep difficulties, though improved. - Patient wakes up at 6 AM. - Plan: a. Continue current nighttime medications including quetiapine and propranolol. b. Increase quetiapine dosage - patient to try taking two tablets over the weekend when no commitments. Follow-up: - Schedule next appointment in one month to assess medication efficacy and side effects. Plan Of Treatment Next Appt Details Provider Name:Brian Garrett, 08/05/2025 11:00:00 AM, [address], [address], [place], [address], Insurance Providers Payer Name Payer Address Payer Phone Subscriber Number Group Number Insured Name Patient Relationship to Insured Coverage Start Date Coverage End Date [employer] [employer] [address] [place] [phone] [id number] DAVE PASCUAL Self - patient is the insured Medical (General) History Medical History History ICD Code Problems: Attention deficit hyperactivity disorder, predominantly inattentive type Generalized anxiety disorder Severe recurrent major depression withou t psychotic features Past Psychiatric History: Anxiety Disord er,Panic Disorder,PTSD abdominal aortic aneurysm: No atrial fibrillation: No chronic fatigue syndrome: No essential tremor: No hyperlipidemia: No hypertension: No Parkinson's disease: No restless leg syndrome: Yes stroke: No subdural hematoma: No type 1 diabetes mellitus: No type 2 diabetes mellitus: No vitamin B12 deficiency: No vitamin D deficiency: Yes PCOS Please check off any of the following medical conditions you currently have or have had in the past:: anxiety,chronic pain,depression,gastrointestinal disorders undefined Have you had any surgery in the past? If yes, please describe:: Yes, lots Surgical History Surgery Date(Month/Year) Removal of gallbladder (10014) 9 Any surgical history 07/08/2018 shoulder surgery ovarian cyst Hospitalization History Reason Date(Month/Year) surgeries
--- OUTSIDE RECORDS SUMMARY | 2025-07-29 12:45 | XMS_ITS | Data Portability ---
Author Organization [place] [facility], Main Office Address [address] [place] [address] Assessment Encounter Date Assessment Date Assessment LastModified [...] improve the range of motion. Recommend using pbqo-cad-mrxmcon topical anti-inflammatory cream, Voltaren, for pain management. After the MRI results are available, we will reevaluate to discuss treatment options, including possible surgical intervention if necessary. Not available 06/02/2024 00:59:47 07/21/2024 07/21/2024 39-year-old francis son presents for follow-up of her left [...] positive Nima, positive Neer and Reeves, positive Vivian's. With AC compression. MRI was reviewed, demonstrating [...] ready to schedule. Not available 07/21/2024 18:09:10 12/29/2024 12/29/2024 39-year-old francis son presents for follow-up for left shoulder. She has a rotator cuff tear that we have tried a course conservative management. She still has pain and dysfunction. She wants to discuss surgery now. She has tenderness over the AC joint and anterior and lateral shoulder. Weakness with elevation external rotation 4/5. Positive Nima positive Neer and Reeves positive Vivian's.. We will proceed with surgery for her as planned. This would be a shoulder arthroscopy, debridement, possible biceps tenodesis, rotator cuff repair, subacromial decompression, distal clavicle excision. Risks, benefits, and alternatives to surgery were [...] Patient agreed and would like to proceed. Not available 01/03/2025 09:45:53 01/24/2025 01/24/2025 HPI: 39 year old female presents today for a follow-up appointment after undergoing left shoulder arthroscopy, debridement, rotator cuff repair, subacromial decompression, distal clavicle excision on January 11, with Dr. García. She is currently 2 weeks post-surgery and reports that she is doing well overall. She rates her pain as 2/10 and is taking not taking anything for pain. The patient has been complaint with sling and postop exercises. She did not have the abductor pillow on her sling, because she thought the instructions said to take it off after the block wore off. Physical Exam: General: Normal appearance. No acute distress. Inspection: Incision is clean dry and intact. No signs or symptoms of infection. Palpation: Nontender with palpitation around the incision site. Sensation: Sensation intact. Assessment & Plan: Sutures removed. Steri Strips placed. Wait 1-2 weeks before submerging incision site. Remain in sling for another 4 weeks (6 weeks total). Place abductor pillow back on. PT ordered to learn gentle PROM exercises. No active range of motion until [address] García Large/Massive Rotator Cuff Repair Protocol. operative Follow Up: 4 weeks All questions were answered. Patient verbalized understanding of treatment plan coy Not available 01/24/2025 15:42:31 02/23/2025 02/23/2025 39 year old female presents today for a follow-up appointment after undergoing left shoulder arthroscopy, debridement, rotator cuff repair, subacromial decompression, distal clavicle excision on January 11, with Dr. García. She is currently 6 weeks post-surgery and reports that she is doing well overall. She rates her pain as 0/10 and is taking not taking anything for pain. The patient has been complaint with sling and postop exercises. Physical exam: Incisions are clean dry and intact. No signs or symptoms of infection. Nontender with palpitation around the incision sites. No pain with gentle ROM. Sensation intact. Today she may come out of the sling. We will get her started with weekly PT sessions. We will see her back in 6-8 weeks after therapy to check her progress, or before then if any issues apply. She is in agreement with this plan. [email or web address] Not available 02/23/2025 09:39:32 Plan of Treatment Reminders Order Date Submit Date Provider Last Modified By Organization Details Last Modified Time Details Appointments None recorded. Lab None recorded. Referral physical therapist referral - Please contact pt to schedule for L shoulder post op. Thanks 2024 025 [facility] [place] [facility], [address], [place], [address], 5 09:20:31 physical therapist referral - EVAL AND TREAT 2023 024 [facility] [place] [facility], [address], [place], [address], 4 16:15:10 Procedures None recorded. Surgeries None recorded. Imaging XR, shoulder [address] [facility] [place], [address], [place], [address], 4 07:35:02 Medication Orders cyclobenza candida 10 mg tablet 2023 024 [id number], [address] [facility], [place], [id number], 4 11:54:30 Patient TargetsNo targets recorded. Patient InstructionsNo instructions recorded. Reason for Referral Physical Therapist Referral for Pain of left shoulder joint EVAL AND TREAT Referring Physician: Gregory García, Orthopedic Surgery, Encounter Date: 06/01/2024 Physical Therapist Referral for Rupture of rotator cuff of right shoulder L shoulder post op Please contact pt to schedule for L shoulder post op. Thanks Referring Physician: Eliana Merchant, Orthopedic Surgery, Encounter Date: 01/24/2025 Results Created Date Observation Date Name Description Value Unit Range Abnormal Flag Note LastModifiedBy Organization Detail LastModifiedTime 06/01/20 XR, shoul kaushik No observ ation record ed. [email or web address] [facility] [place] [address], [place], [address], 06/01/2024 09:10:49 06/09/2006/09/2024 MRI, shoul kaushik, w/o contr ast No observ ation record ed. [facility] [address] [place], [address], 07/05/2024 13:28:58 Result Notes None recorded. Problems Name Problem SNOMED Code Status Onset Date Resolution Date Notes Provider Name and Address Organization Details Recorded Time Degenerati on of lumbar interverte bral disc 88303835 Active 2022 Fusion L5 Wendy Sherman MD [address], [place], [address], [employer] 3 08:34:52 Cyst of ovary 02154577 Active 2022 Wendy Sherman MD [address], [place], [address], [employer] 3 08:38:26 Weight gain 2276082 Active 2022 Wendy Sherman MD [address] [place], [address], [employer] 3 08:43:45 Diarrhea 96787687 Active 2022 Wendy Sherman MD [address], [place], [address], [employer] 3 08:47:03 Chronic diarrhea 838852210 Active 2022 Wendy Sherman MD [address], [place], [address], [facility] 3 08:47:10 Attention deficit hyperactiv ity disorder 481473392 Active 2022 Wendy Sherman MD [address], [place], [address], [facility] 3 08:49:44 Gastroesop hageal reflux disease without esophagiti s 265455148 Active 2022 Wendy Sherman MD [address], [place], [address], [facility] 3 08:44:26 Thoracic back pain 635441542 Active 2022 Wendy Sherman MD [address], [place], [address], [facility] 3 08:49:06 Cough 60278047 Active 2022 Wendy Sherman MD [address], [place], [address], [facility] 3 12:01:40 Vitamin D deficiency 51385849 Active 2022 Wendy Sherman MD [address], [place], [address], [facility] 3 08:54:54 Iron deficiency anemia 50585262 Active 2022 Wendy Sherman MD [address], [place], [address], [facility] 3 08:54:59 Mixed anxiety and depressive disorder 524557668 Active 2022 CHRISTIAN Hylton [address], [place], [address], [facility] 3 15:39:45 Giardiasis 32060850 Active 2022 John SANTOS Santiago-C [address] [facility], [address] [address], [place], [address], [facility] [employer] [facility] 3 14:33:02 Pain of left shoulder joint 7162451402711 9109 Active 2023 John SANTOS Santiago-C [address] [facility], [address], [address], [facility] [employer] [facility] 4 08:13:07 Rupture of rotator cuff of right shoulder 9771083722127 9103 Active 2023 Gregory García MD [address] [facility], [address] [address], [place], [address], [facility] [employer] [facility] 4 01:00:45 Rupture of rotator cuff of left shoulder 7597081200092 9102 Active 2023 Gregory García MD [address] [facility], [address] [address], [place], [address], [facility] 4 09:38:32 Gastroente ritis 09289598 Active 2024 [facility] [employer] [facility], [facility] 5 10:54:46 Problem Notes None recorded. Procedures Surgical History Date Name Laterality Status Provider Name and Address Organization Details Recorded Time 01/12/20 Shoulder completed MARIA EUGENIA Conner [facility] 01/18/2025 09:37:49 Spinal Fusion completed Naomi Perdomo CNA [facility] 06/01/2024 09:09:35 laparoscopic sleeve gastrectomy completed Naomi Perdomo BURNING MACHINE OPERATOR [facility] 06/01/2024 09:09:59 Imaging Results None recorded. Procedure Notes None recorded. Medical Equipment None Reported. Allergies Allergen ID Allergen Name Allergen Category Reaction Reaction Severity Criticality Documentation Date Start Date Code Code System Note Provider Name and Address Organization Details Recorded Time 18789 miconazol e medicatio n Not available Not available Not available 01/07/2023 6932 RxNosophie Sherman MD [address], [place], [address], [facility] [employer] [facility] 3 08:32:06 07998 terbinafi ne medicatio n Not available Not available Not available 01/07/2023 06347 RxHubert Sherman MD [address], [address], [place], [address], [facility] [employer] [facility] 3 08:32:27 Medications Name Sig Start Date Stop Date Status Note LastModified by Organization Details LastModified Time cyclobenzap rine 10 mg tablet Take 1 tablet 3 times a day by oral route as needed. active Not Available Not Available No t Available amoxicillin 500 mg capsule TAKE 1 CAPSULE BY MOUTH TWICE DAILY FOR 6 DAYS active Not Available Not Available No t Available azithromyci n 250 mg tablet TAKE 2 TABLETS (500 MG) BY ORAL ROUTE ONCE DAILY FOR 1 DAY THEN 1 TABLET (250 MG) BY ORAL ROUTE ONCE DAILY FOR 4 DAYS 03/18 completed Not Available Not Available Not Available ibuprofen 800 mg tablet TAKE 1 TABLET BY MOUTH THREE TIMES DAILY FOR 7 DAYS NEEDED FOR PAIN active Not Available Not Available No t Available fluconazole 150 mg tablet TAKE 1 TABLET BY MOUTH DAILY FOR 1 DAY 05/18 completed Not Available Not Available Not Available benzonatate 200 mg capsule Take 1 capsule 3 times a day by oral route as needed. 03/18 completed Not Available Not Available Not Available hydrocodone 5 mg-acetamin ophen 325 mg tablet TAKE 1 TABLET BY MOUTH EVERY 6 HOURS active Not Available Not Available No t Available prednisone 20 mg tablet Take 2 tablets every day by oral route for 5 days. 03/18 completed Not Available Not Available Not Available metronidazo le 500 mg tablet TAKE 4 TABLETS BY MOUTH EVERY DAY FOR 3 DAYS 05/18 completed Not Available Not Available Not Available acetaminoph en 500 mg tablet active Not Available Not Available Not Available ketorolac [...] completed Not Available Not Available Not Available ketoconazol e 2 % topical cream APPLY TO RASHY AREA OF UMBILICUS UP TO TWICE DAILY active Not Available Not Available No t Available ondansetron 4 mg disintegrat ing tablet DISSOLVE 2 TABLETS ON THE TONGUE TWICE DAILY NEEDED active Not Available Not Available No t Available amoxicillin 875 mg-potassiu m clavulanate 125 mg tablet TAKE 1 TABLET BY MOUTH EVERY 12 HOURS active Not Available Not Available No t Available atomoxetine 40 mg capsule TAKE 1 CAPSULE BY MOUTH EVERY DAY 05/18 completed Not Available Not Available Not Available atomoxetine 60 mg capsule Take 1 capsule every day by oral route. 05/18 completed [...] and Address Organization Details Last Updated DateTime 12/29/2024 172.72 cm 33.5 kg/m2 92235.32 g Naomi Perdomo [facility] [employer] [facility] 12/29/2024 10:22:31 Date Recorded Body height Body mass index (BMI) Body weight Pain severity - 0-10 verbal numeric rating [Score] - Reported Provider Name and Address Organization Details Last Updated DateTime 01/24/2025 172.72 cm 33.5 kg/m2 08148.32 g 2 Nanci Leslie [place] [employer] [facility] [employer] [facility] 01/24/2025 14:00:23 Date Recorded Body height Body mass index (BMI) Body weight Provider Name and Address Organization Details Last Updated DateTime 02/23/2025 172.72 cm 33.5 kg/m2 92090.32 g Naomi Perdomo [facility] [employer] [facility] 02/23/2025 09:26:59 Date Recorded Body height Body mass index (BMI) Body weight Provider Name and Address Organization Details Last Updated DateTime 06/01/2024 172.72 cm 34.2 kg/m2 909742.28 g Naomi Perdomo [facility] [employer] [facility] 06/01/2024 09:06:55 Date Recorded Body height Body mass index (BMI) Body weight Provider Name and Address Organization Details Last Updated DateTime 07/21/2024 172.72 cm 34.2 kg/m2 459336.28 g Naomi Perdomo BURNING MACHINE OPERATOR [employer] [facility] 07/21/2024 14:25:53 Social History Question Answer Notes LastModified by [employer] Details LastModified Time Tobacco Smoking Status Never Smoker Wendy Sherman MD [address] [place] [address], [address], [facility] [employer] [facility] 01/07/2023 08:34:09 What Was The Date Of Your Most Recent Tobacco Screening? 01/07/2023 [email or web address] Information not available 01/07/2023 Sex: Unknown Functional Status Question Answer Note LastModified by [employer] Details LastModified Time What is your level of alcohol consumption? Occasional [email or web address] Information not available 06/01/2024 Mental Status None recorded. Family History Relationship [...] Diagnosis SNOMED-CT Code Diagnosis ICD10 Code Diagnosis IMO Codes Diagnosis Note [id number] Wendy Sherman MD [facility] Primary [address] [place] [address] 01/07/2023 08:08:23 01/07/2023 08:59:06 Weight gain 0003254 R63.5 check labsconsid er med for weight loss if normal History of bariatric surgical procedure 885540743 Z98.84 check labs Chronic diarrhea 9865084 09 K52.9 persistent lifelong diarrhea with no previous evaluation GI referral given Attention deficit hyperactivity disorder 535738488 F90.9 trial of atomoxetin e 40 mg daily with foodhas failed bupropion due to med s/ereviewe d potential med s/ef/u in 4 weeks or sooner if needed [id number] Wendy Sherman MD [address] [address] 02/10/2023 08:23:11 02/10/2023 08:56:15 Attention deficit hyperactivity disorder 229961955 F90.9 trial of atomoxetin e 40 mg daily with food when her nausea/lourdes d is improvedha s failed bupropion due to med s/ereviewe d potential med s/ef/u in 4 weeks or sooner if needed Gastroesop hageal reflux disease without esophagitis 249477796 K21.9 Avoid greasy/spi cy/acidic foodEat small, frequent mealsCall if any worsening symptoms including increased pain or blood in stools or if symptoms do not resolve in 14 dayspantop razole 40 mg dailyfamot idine 40 mg po qhsGI referral had already been givenf/u in 4 weeks or sooner if needed Thoracic back pain 61802 8004 M54.6 supportive careketoro lac 30 mg IM x 1call/retu rn if no improvemen t in 1-2 days or sooner if neededrevi ewed s/s that warrant urgent/chelo rgent eval in meantime [id number] Wendy Sherman MD [address] [place] [address] 03/18/2023 08:00:19 03/18/2023 10:56:54 Gastroesophageal reflux disease without esophagitis 750604721 K21.9 Avoid greasy/spi cy/acidic foodEat small, frequent mealsCall if any worsening symptoms including increased pain or blood in stools or if symptoms do not resolve in 14 dayspantop razole 40 mg dailyfamot idine 40 mg po qhsGI referral had already been givenf/u in 4 weeks or sooner if needed update 03/18/23: plan to continue pantoprazo le for 1 year Attention deficit hyperactivity disorder 467703256 F90.9 has failed bupropion due to med s/eimprove d but not yet to baseline, increase atomoxetin e 60 mg daily Vitamin D deficiency 347 97768 E55.9 vitamin d3 2000 IU once daily Iron defic iency anemia 47511246 D50.9 cannot tolerate oral ironrepeat labs in 3 months [id number] CHRISTIAN Hylton [facility] Primary Care [address] [place] [address] 05/13/2023 15:21:15 05/13/2023 17:26:44 Mixed anxiety and depressive disorder 756549872 F41.8 Has tried celexa in the past, but would like to go with another medication . Will try lowest dose of lexapro for maintenanc e. Wants something that works prn as well that is not stimulatin g or habit forming. Will trial hydroxyzin e [id number] CHRISTIAN Hylton [facility] Primary Care [address] [place] [address] 05/18/2024 08:00:16 05/18/2024 08:23:00 Pain of left shoulder joint 8763980307 6479301 M25.512 pain noted to left shoulder since recently going swimming (exac old rugby injuries)n oting weakness/d ecreased ROM since the incidentmi ssed work yesterday d/t painwent to last Friday and was given toradol injection with little reliefuses heat/ice/m assage gun with [id number] Gregory García MD [facility] [place] [address] [place] [address] 06/01/2024 08:57:09 06/01/2024 09:52:36 Pain of left shoulder joint 7177109207 5955145 M25.512 Rupture of rotator cuff of left shoulder 4031910808 7057287 M75.920 [id number] Gregory García MD [facility] [place] [address] [place] [address] 07/21/2024 14:19:59 07/21/2024 14:40:30 Rupture of rotator cuff of left shoulder 3120458700 3885344 M75.102 Pain of le ft shoulder joint 5291477710 0011148 M25.918 [id number] Gregory García MD [facility] [place] [address] [place] [address] 12/29/2024 10:19:27 12/29/2024 10:53:16 Rupture of rotator cuff of left shoulder 4253811092 1924831 M75.102 Pain of le ft shoulder joint 5910314339 5851944 M25.740 [id number] Gregory García MD [facility] [place] [address] [place] [address] 01/24/2025 13:53:07 01/24/2025 14:20:26 Rupture of rotator cuff of right shoulder 9156607865 3878874 M75.101 Pain of le ft shoulder joint 5246314559 9057312 M25.534 [id number] Gregory García MD [facility] [place] [address] [place] [address] 02/23/2025 09:23:58 02/23/2025 09:42:54 Pain of left shoulder joint 2076162654 9146784 M25.512 Rupture of rotator cuff of left shoulder 0293856037 6754520 M75.102 Health Concerns Section Related Observation LastModified by Organization Detai ls LastModified Time None Recorded Concern Status LastModified by Organization Details LastModified Time None Recorded Advance Directives Directive None Recorded Payers Insurance Date Sequence Insurance Name Policy Number Policy Herrera Covered Member ID Herrera Member ID Guarantor Name 02/28/2025 1 [employer] [id number] Gaviota Mark [id number] Gaviota Mark OBGyn Episode No OBEpisode recorded.
--- OUTSIDE RECORDS SUMMARY | 2025-07-29 12:45 | XMS_ITS | Encounter Summary ---
Author Organization [employer] Address [address] [place] [address] Care Team Providers Care Certified Family Mediator Name Role Phone Chelsie Pleitez MD Primary Care Provider [phone] Encounter Details Date Type Department Care Team [...] on file Legal Sex Female 4:46 AM TRAVEL MED SURG RN Gender Identity Not on file Sexual [...] documented as of this encounter Care Teams Certified Family Mediator Relationship Specialty [place] [address] [place] [address] PCP - General Internal Medicine 09/01/14 documented as of this encounter
--- OUTSIDE RECORDS SUMMARY | 2025-07-29 12:45 | XMS_ITS | Encounter Summary ---
Author Organization [employer] Address 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
--- OUTSIDE RECORDS SUMMARY | 2025-07-29 12:45 | XMS_ITS | Encounter Summary ---
Author Organization [employer] Address 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
--- OUTSIDE RECORDS SUMMARY | 2025-07-29 12:45 | XMS_ITS | Encounter Summary ---
Author Organization [employer] Address 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
[2025-07-29 13:21] LABS: Hematocrit 34.9 % (37.0-47.0); Hemoglobin 11.3 g/dL (12.0-15.0)
== END 2025-07-29 12:38 | disposition home or self-care (01) ==
LOC: ANHSURGERY 12:42
PROVIDERS: Anesthesiology; Visit Provider Obstetrics & Gynecology
DX: N93.9 Abnormal uterine and vaginal bleeding, unspecified (principal); D64.9 Anemia, unspecified; Z01.818 Encounter for other preprocedural examination
CPT/HCPCS: 36415; 85014; 85018; 86850; 86900; 86901

== ENCOUNTER 2025-08-03 02:55 | Day surgery (SDC) | payer BC, SELFPAY ==
--- OUTSIDE RECORDS SUMMARY | 2025-07-14 04:00 | XMS_ITS ---
Author Organization [facility] [employer] [facility] Address [address] [facility] [address] [place] [address] Care Team Providers Care Professional Wrestler Name Role Phone Brian Garrett Unavailable [phone] Yue Tinoco Unavailable [phone] REASON FOR VISIT Therapy Visit Social History Sex Assigned At : Social History Observation Description Sex Assigned At Female Encounters Encounter Location Date Provider Diagnosis [facility], [address] [address] [facility] [address] [place] [address] 07/14/2025 Yue Tinoco Plan Of Treatment Next Appt Details Provider Name:Brian Garrett, 08/12/2025 10:00:00 AM, [address], [facility] [address], [place], [address], Progress Notes * DAVE PASCUALOB:12/1984 (40 yo F)Acc No.[id number]:07/14/2025 Patient: Marnie TENADAVE Provider: Israel Tinoco :1985 A ge:40 Y S ex:Female Date:07/14/2025 Address:[address] [place], [place] Data: * Chief Complaints: * T herapy Visit Billing Information: * Procedure Codes: * Electronic signature of Prakash Tinoco LCPC on 08/03/2025 at 02:58 AM CDT Sign off status: Pending Signatures: No Ad Hoc Signature Added * Provider: Israel Tinoco Date: 0 07/14/2025 Generated for Pal gill/Alessia/Raúl on: 1 02:58 AM CDT
[2025-07-26 14:29] VITALS: BMI 32.6
--- NOTE | 2025-07-26 14:58 | PC.NURSE ---
[facility] has started construction of its new state of the art ER which will open Spring 2026. With this, we anticipate parking may be a challenge for some our surgical patients and families. Parking spaces are limited but are available for all Surgical, obstetrics, and ER patients sharing this lot. If you arrive and find you are having a hard time finding a parking space, please note that we understand the challenges, please drive around the hospital and park near Hospital Entrance 1. When you enter this entrance, you can ask a volunteer to direct or take you back to the surgical waiting area to check in. We appreciate everyone?s understanding of these expected challenges while we build for your future. Report to the Outpatient Waiting Room, entrance under the green pavilion located off [address], at 0600 on 08-03-25. Planned Procedure Time: 0730.? Time changes happen often and if your time is changed the preop area will call you the afternoon before. - You and your visitor will be asked to self-screen and do not enter if you have any COVID symptoms. Please call surgeon if you need to reschedule. - A mask is optional within the hospital at this time. Patients may have clear liquids (water, carbonated beverages, clear teas, apple juice) until 3 hours prior to surgery with a maximum of 20 ounces. 0430 - No food from midnight until time of surgery and no smoking, or chewing tobacco (or any form of nicotine). No chewing gum, candy or mints. - Infants may have breast milk until 4 hours before surgery, infant formula 6 hours prior to surgery. - Children will be allowed to drink immediately following surgery.? If applicable, please bring a bottle or sippy cup to assist with drinking. Juice, water, soda, and popsicles are readily available.? For infants on formula, please bring formula the day of surgery.? Pacifiers are allowed. Take only the following medications with a SIP of water on the morning of surgery: None. (Patient takes all meds at night) DO NOT STOP ANY OF YOUR OTHER PRESCRIPTION MEDICATIONS PRIOR TO SURGERY EXCEPT THE FOLLOWING Hold all vitamins and supplements for 3 days per anesthesiologist. Medications to discontinue per physician: N/A Please no make-up, nail ukrainian, hairspray, perfume, deodorant, or body powder the day of surgery.? No jewelry (including any body piercings) or valuables the day of surgery, leave them at home.? Please take a shower or bath the night before, or the morning of, surgery with an antibacterial soap.? Wear comfortable, loose fitting clothing.? Children are encouraged to wear pajamas. - Jewelry must be removed prior to entering the operating room.? Rings and piercings that are not removed may be cut off. - The hospital will not accept responsibility for valuables.? - Please leave all valuables, including medications, at home the day of surgery. If you are going home after surgery, a licensed hog driver must drive you home.? - NO public transportation without another adult if you receive anesthesia. - We recommend that an adult stay with you for 24 hours following discharge. - We also recommend that you do not drive, make important decision, drink alcoholic beverages, or take any drugs that were not prescribed by your health care provider for at least 24 hours after your discharge time. For Pediatric surgeries, we recommend two adults accompany the child home. Follow any additional instructions given to you from your surgeon. Telephone instructions given to Gaviota Mark and asked if any additional questions and then verbalized understanding. Patient advised to call surgeon office or pre surgery nurse liaison [phone] if any additional questions.
[2025-08-03] VITALS (11 sets, daily range): BP systolic 94–112; BP diastolic 51–81; PULSE 51–68; RESP 13–20; TEMP 36.2–36.7; O2SAT 96–100; BMI 35.8
--- OUTSIDE RECORDS SUMMARY | 2025-08-03 02:58 | XMS_ITS | Encounter Summary ---
Author Organization [employer] Address [address] [place] [address] Care Team Providers Care Seafood And Service Meat Manager Name Role Phone Chelsie Pleitez MD Primary Care Provider [phone] Encounter Details Date Type Department Care Team [...] on file Legal Sex Female 4:46 AM INVESTIGATION SPECIALIST Gender Identity Not on file Sexual [...] documented as of this encounter Care Teams Seafood And Service Meat Manager Relationship Specialty Start [place] [address] [place] [address] PCP - General Internal Medicine 09/01/14 documented as of this encounter
--- OUTSIDE RECORDS SUMMARY | 2025-08-03 02:58 | XMS_ITS | Encounter Summary ---
Author Organization [facility] Address 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
--- OUTSIDE RECORDS SUMMARY | 2025-08-03 02:58 | XMS_ITS | Encounter Summary ---
Author Organization [employer] Address [address] [place] [address] Care Team Providers Care Network Management Specialist Name Role Phone Chelsie Pleitez MD Primary Care Provider [phone] Encounter Details Date Type Department Care Team [...] on file Legal Sex Female 4:46 AM GRAIN UNLOADER Gender Identity Not on file Sexual Orientation [...] documented as of this encounter Care Teams Network Management Specialist Relationship Specialty Start [place] [address] [place] [address] PCP - General Internal Medicine 09/01/14 documented as of this encounter
--- OUTSIDE RECORDS SUMMARY | 2025-08-03 02:58 | XMS_ITS | Encounter Summary ---
Author Organization [employer] Address [address] [place] [address] Care Team Providers Care Lumber Piler Name Role Phone Chelsie Pleitez MD Primary Care Provider [phone] Encounter Details Date Type Department Care Team [...] on file Legal Sex Female 4:46 AM DOCTOR OF PHARMACY Gender Identity Not on file Sexual Orientation [...] documented as of this encounter Care Teams Lumber Piler Relationship Specialty Start [place] [address] [place] [address] PCP - General Internal Medicine 09/01/14 documented as of this encounter
--- OUTSIDE RECORDS SUMMARY | 2025-08-03 02:58 | XMS_ITS | Patient Health Record ---
Author Organization [facility] Address [address] [place] [address] Care Team Providers Care Production Support Engineer Name Role Phone ChauBrian roque Unavailable [phone] Pat Wymananna Unavailable [phone] Yue Tinoco Unavailable [phone] Allergies Allergen (clinical drug ingredient) Drug/Non Drug [...] Oxazepam (BZO) N 0 - 300 ng/ml 6-qhtmhlutpk-4,5-zdhvusmd-7,3-diphenylpyrrolidine (ELLIOTT P) N 0 - 300 ng/ml Methamphetamine (MET) N 0 - 1000 ng/ml Methylenedioxymethamphetamine (MDMA) N 0 - 500 ng/ml Morphine (MOP 300/YMK0561) N 0 - 300 ng/ml Methadone (MTD) [...] Insomnia disorder related to another mental disorder (87369713) Insomnia due to other mental disorder (F51.05) Active confirmed improving Problem Attention deficit hyperactivity disorder, predominantly inattentive type (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) Attention-defic it hyperactivity disorder, predominantly inattentive type (F90.0) Active confirmed needs improvement Problem Generalized anxiety disorder (81500629) JAXSON (generalized anxiety disorder) (F41.1) Active confirmed improving Problem Severe recurrent major depression without psychotic features (60310746) Severe episode of recurrent major depressive disorder, without psychotic features (F33.2) Active confirmed Problem Nondependent cannabis abuse (425220803) Marijuana use (F12.90) Active confirmed improving Vital Signs Heart Rate 80 /min 05/24/2025 Height-cm 172.72 cm 07/15/2025 Blood pressure diastolic 81 mm Hg 05/24/2025 Weight-kg 103.42 kg 05/24/2025 Height 68.00 in 07/15/2025 Blood pressure systolic 112 mm Hg 05/24/2025 Weight 228 lbs 05/24/2025 BMI 34.66 kg/m2 05/24/2025 Encounters Encounter Location Date Provider Diagnosis [facility] [place] [address] 02/25/2025 Brian Clubb JAXSON (generalized anxiety disorder) F41.1 ; Severe episode of recurrent major depressive disorder, without psychotic features F33.2 ; Encounter for screening for depression Z13.31 and Marijuana use F12.90 [employer] [address] [place] [address] 04/05/2025 Brian Clubb JAXSON (generalized anxiety disorder) F41.1 ; Severe episode of recurrent major depressive disorder, without psychotic features F33.2 ; Marijuana use F12.90 ; Encounter for screening for depression Z13.31 and Encounter for screening for cardiovascular disorders Z13.6 [employer] [address] [place] [address] 05/05/2025 Brian Clubb JAXSON (generalized anxiety disorder) F41.1 ; Severe episode of recurrent major depressive disorder, without psychotic features F33.2 ; Marijuana use F12.90 and Attention-deficit hyperactivity disorder, predominantly inattentive type F90.0 [facility] [address] [place] [address] 05/06/2025 Yue Hinderliter JAXSON (generalized anxiety disorder) F41.1 ; Major depressive disorder, recurrent severe without psychotic features F33.2 ; Attention-deficit hyperactivity disorder, predominantly inattentive type F90.0 ; Marijuana use F12.90 and Encounter for screening for depression Z13.31 [employer], [employer] [place] [address] 05/16/2025 Yue Hinderliter JAXSON (generalized anxiety disorder) F41.1 ; Major depressive disorder, recurrent severe without psychotic features F33.2 ; Attention-deficit hyperactivity disorder, predominantly inattentive type F90.0 and Encounter for screening for depression Z13.31 [employer], [employer] [address] [place] [address] 05/24/2025 Yue Hinderliter Severe episode of recurrent major depressive disorder, without psychotic features F33.2 ; JAXSON (generalized anxiety disorder) F41.1 ; Attention-deficit hyperactivity disorder, predominantly inattentive type F90.0 and Encounter for screening for depression Z13.31 [employer], [employer] [place] [address] 05/24/2025 Brian Clubb JAXSON (generalized anxiety disorder) F41.1 ; Severe episode of recurrent major depressive disorder, without psychotic features F33.2 ; Marijuana use F12.90 and Attention-deficit hyperactivity disorder, predominantly inattentive type F90.0 [employer], [employer] [address] [place] [address] 05/31/2025 Yue Hinderliter JAXSON (generalized anxiety disorder) F41.1 ; Severe episode of recurrent major depressive disorder, without psychotic features F33.2 and Attention-deficit hyperactivity disorder, predominantly inattentive type F90.0 [employer], [employer] [address] [place] [address] 06/06/2025 Yue Hinderliter JAXSON (generalized anxiety disorder) F41.1 ; Severe episode of recurrent major depressive disorder, without psychotic features F33.2 and Attention-deficit hyperactivity disorder, predominantly inattentive type F90.0 [employer], [employer] [address] [place] [address] 06/06/2025 Brian Clubb JAXSON (generalized anxiety disorder) F41.1 ; Severe episode of recurrent major depressive disorder, without psychotic features F33.2 ; Marijuana use F12.90 and Attention-deficit hyperactivity disorder, predominantly inattentive type F90.0 [employer], [employer] [address] [place] [address] 06/16/2025 Yue Hinderliter JAXSON (generalized anxiety disorder) F41.1 ; Attention-deficit hyperactivity disorder, predominantly inattentive type F90.0 ; Severe episode of recurrent major depressive disorder, without psychotic features F33.2 and Insomnia due to other mental disorder F51.05 [employer], [employer] [address] [place] [address] 07/07/2025 Brian Clubb JAXSON (generalized anxiety disorder) F41.1 ; Insomnia due to other mental disorder F51.05 ; Major depressive disorder, recurrent severe without psychotic features F33.2 ; Attention-deficit hyperactivity disorder, predominantly inattentive type F90.0 and Marijuana use F12.90 [employer], [employer] [address] [place] [address] 07/07/2025 Yue Hinderliter Severe episode of recurrent major depressive disorder, without psychotic features F33.2 ; JAXSON (generalized anxiety disorder) F41.1 and Attention-deficit hyperactivity disorder, predominantly inattentive type F90.0 [employer], [employer] [address] [place] [address] 07/15/2025 Yue Hinderliter JAXSON (generalized anxiety disorder) F41.1 ; Severe episode of recurrent major depressive disorder, without psychotic features F33.2 and Attention-deficit hyperactivity disorder, predominantly inattentive type F90.0 [employer] [address] [place] [address] 02/23/2025 Yarely Wyman [employer], [employer] [address] [place] [address] 03/24/2025 Brian Clubb JAXSON (generalized anxiety disorder) F41.1 [employer] [address] [place] [address] 04/07/2025 Brian Clubb [employer], [employer] [address] [place] [address] 05/16/2025 Brian Clubb [facility], [facility] [address] [place] [address] 05/27/2025 Brian Clubb [facility], [facility] [address] [place] [address] 06/13/2025 Yue Alejandrina [facility], [facility] [address] [place] [address] 06/24/2025 Brian Clubb [facility], [facility] [address] [place] [address] 07/07/2025 Brian Clubb [facility], [facility] [address] [place] [address] 07/07/2025 Brian Clubb [facility], [facility] [address] [place] [address] 07/12/2025 Brian Clubb [facility], [facility] [address] [place] [address] 07/14/2025 Brian Clubb [facility], [facility] [address] [place] [address] 07/15/2025 Brian Clubb [facility], [facility] [address] [place] [address] 07/19/2025 Brian Clubb [facility], [facility] [address] [place] [address] 07/29/2025 Brian Clubb [facility], [facility] [address] [place] [address] 08/01/2025 Brian Clubb [facility], [facility] [address] [place] [address] 08/02/2025 Brian Clubb Assessments Encounter Date Diagnosis (ICD Code) Assessment Notes Treatment Notes Treatment Clinical Notes Section Notes 03/24/2025 JAXSON (generalized anxiety disorder) (ICD-10 - F41.1) 07/15/2025 JAXSON (generalized anxiety disorder) (ICD-10 - [...] - Assist patient in developing a structured yaienh-db-xwqh plan: - Start with 20 hours per [...] - Assist patient in developing a structured ipzgfw-du-lzcn plan: - Start with 20 hours per [...] progress and adjust plan as needed 07/07/2025 Insomnia due to other mental disorder (ICD-10 - F51.05) improving 07/07/2025 JAXSON (generalized anxiety disorder) (ICD-10 - F41.1) improving 07/07/2025 JAXSON (generalized anxiety disorder) (ICD-10 [...] for daily functioning - Encourage use of yeef-ie-qyih or audio recording for journaling and idea [...] for daily functioning - Encourage use of ktxh-ya-pxdq or audio recording for journaling and idea [...] health and adjust treatment plan as needed 06/16/2025 Attention-defici t hyperactivity disorder, predominantly inattentive [...] quality of life and sleep patterns. An OB-SMOKING TOBACCO PACKER HAND has recommended progesterone treatment and is planning a hysterectomy to address these issues. The patient is awaiting scheduling of the procedure. Plan: - Follow up with OB-SMOKING TOBACCO PACKER HAND regarding progesterone treatment and hysterectomy scheduling - [...] quality of life and sleep patterns. An OB-SMOKING TOBACCO PACKER HAND has recommended progesterone treatment and is planning a hysterectomy to address these issues. The patient is awaiting scheduling of the procedure. Plan: - Follow up with OB-SMOKING TOBACCO PACKER HAND regarding progesterone treatment and hysterectomy scheduling - [...] management techniques to potentially alleviate skin issues 06/06/2025 JAXSON (generalized anxiety disorder) (ICD-10 - F41.1) 06/06/2025 Severe episode of recurrent major depressive disorder, without psychotic features (ICD-10 - F33.2) 06/06/2025 JAXSON (generalized anxiety disorder) (ICD-10 - [...] mood issues. Plan: - Follow up with marketing operations specialist is scheduled later this month - Explore [...] mood issues. Plan: - Follow up with marketing operations specialist is scheduled later this month - Explore [...] supporting daughter's anxiety while managing own symptoms 05/31/2025 JAXSON (generalized anxiety disorder) (ICD-10 - [...] treatment with any planned gynecological interventions 05/24/2025 JAXSON (generalized anxiety disorder) (ICD-10 - F41.1) 05/24/2025 Severe episode of recurrent major depressive disorder, without psychotic features (ICD-10 - F33.2) 05/24/2025 JAXSON (generalized anxiety disorder) (ICD-10 - [...] prescribed by Brian - Follow up with OB-SMOKING TOBACCO PACKER HAND for potential ablation or hysterectomy to address [...] Encourage daughter's participation in positive activities (e.g., [employer], [employer]) - Address concerns about daughter's [...] prescribed by Brian - Follow up with OB-SMOKING TOBACCO PACKER HAND for potential ablation or hysterectomy to address [...] Encourage daughter's participation in positive activities (e.g., [employer], [employer]) - Address concerns about daughter's living situation with ex- as appropriate 05/16/2025 Major depressive disorder, recurrent severe without [...] management with psychiatrist if symptoms persist 05/06/2025 Major depressive disorder, recurrent severe without [...] management techniques into overall treatment plan 05/05/2025 JAXSON (generalized anxiety disorder) (ICD-10 - F41.1) 05/05/2025 Severe episode of recurrent major depressive disorder, without psychotic features (ICD-10 - F33.2) 05/06/2025 JAXSON (generalized anxiety disorder) (ICD-10 - [...] management techniques into overall treatment plan 04/05/2025 JAXSON (generalized anxiety disorder) (ICD-10 - F41.1) 02/25/2025 JAXSON (generalized anxiety disorder) (ICD-10 - F41.1) 02/25/2025 Severe episode of recurrent major depressive disorder, without psychotic features (ICD-10 - F33.2) 02/25/2025 Encounter for screening for depression (ICD-10 - Z13.31) 04/05/2025 Severe episode of recurrent major depressive disorder, without psychotic features (ICD-10 - F33.2) 07/07/2025 Attention-defici t hyperactivity disorder, predominantly inattentive [...] for daily functioning - Encourage use of nxgm-sd-mxea or audio recording for journaling and idea [...] health and adjust treatment plan as needed 05/05/2025 Marijuana use (ICD-10 - F12.90) 05/06/2025 Attention-defici t hyperactivity disorder, predominantly inattentive [...] management techniques into overall treatment plan 05/16/2025 Attention-defici t hyperactivity disorder, predominantly inattentive [...] management with psychiatrist if symptoms persist 05/24/2025 Marijuana use (ICD-10 - F12.90) improving 05/24/2025 Attention-defici t hyperactivity disorder, predominantly inattentive [...] prescribed by Brian - Follow up with OB-SMOKING TOBACCO PACKER HAND for potential ablation or hysterectomy to address [...] Encourage daughter's participation in positive activities (e.g., [employer], [employer]) - Address concerns about daughter's living situation with ex- as appropriate 05/31/2025 Attention-defici t hyperactivity disorder, predominantly inattentive [...] treatment with any planned gynecological interventions 06/06/2025 Marijuana use (ICD-10 - F12.90) improving [...] mood issues. Plan: - Follow up with marketing operations specialist is scheduled later this month - Explore [...] supporting daughter's anxiety while managing own symptoms 06/16/2025 Severe episode of recurrent major depressive [...] quality of life and sleep patterns. An OB-SMOKING TOBACCO PACKER HAND has recommended progesterone treatment and is planning a hysterectomy to address these issues. The patient is awaiting scheduling of the procedure. Plan: - Follow up with OB-SMOKING TOBACCO PACKER HAND regarding progesterone treatment and hysterectomy scheduling - [...] techniques to potentially alleviate skin issues 07/07/2025 Major depressive disorder, recurrent severe without [...] emergency services. discussed crisis prevention hotline [phone]. 07/15/2025 Attention-defici t hyperactivity disorder, predominantly inattentive [...] - Assist patient in developing a structured hviamb-rv-avjt plan: - Start with 20 hours per week, gradually increasing to 30 hours - Full-time return planned for after August 03 surgery recovery - Recommend patient discuss specific work schedule preferences with her boss (e.g., morning vs. afternoon shifts, specific days of the week) - Advise patient to request updated [facility] paperwork from Brian to support gradual return to work - Schedule follow-up appointment to review work transition progress and adjust plan as needed 07/07/2025 Attention-defici t hyperactivity disorder, predominantly inattentive type (ICD-10 - F90.0) needs improvement 06/06/2025 Attention-defici t hyperactivity disorder, predominantly inattentive [...] quality of life and sleep patterns. An OB-SMOKING TOBACCO PACKER HAND has recommended progesterone treatment and is planning a hysterectomy to address these issues. The patient is awaiting scheduling of the procedure. Plan: - Follow up with OB-SMOKING TOBACCO PACKER HAND regarding progesterone treatment and hysterectomy scheduling - [...] management techniques to potentially alleviate skin issues 05/24/2025 Attention-defici t hyperactivity disorder, predominantly inattentive type (ICD-10 - F90.0) 05/24/2025 Encounter for screening for depression (ICD-10 [...] prescribed by Brian - Follow up with OB-SMOKING TOBACCO PACKER HAND for potential ablation or hysterectomy to address [...] Encourage daughter's participation in positive activities (e.g., [employer], [employer]) - Address concerns about daughter's living situation with ex- as appropriate 05/16/2025 Encounter for screening for depression (ICD-10 [...] management techniques into overall treatment plan 05/05/2025 Attention-defici t hyperactivity disorder, predominantly inattentive type (ICD-10 - F90.0) 04/05/2025 Marijuana use (ICD-10 - F12.90) 02/25/2025 Marijuana use (ICD-10 - F12.90) 04/05/2025 Encounter for screening for depression (ICD-10 - Z13.31) 05/06/2025 Encounter for screening for depression (ICD-10 [...] sleep management techniques into overall treatment plan 07/07/2025 Marijuana use (ICD-10 - F12.90) improving 04/05/2025 Encounter for screening for cardiovascular disorders [...] her father's suicide this year and her skwoeg-vf-bsm's current critical health condition. These factors likely [...] quality and daytime agitation management. d. Recommend wolu-btb-pnnzh er Calmaid and magnesium supplement for additional sleep support. e. encourage sleep hygiene. 07/07/2025 Other Buspirone material was published 1. Major Depressive Disorder - Patient rates depression at 5/10. - Plan: a. Continue Lexapro 20 mg [...] 08/12/2025 10:00:00 AM, [address], [place], [address], Insurance Providers Payer Name Payer Address Payer Phone Subscriber Number Group Number Insured Name Patient Relationship to Insured Coverage Start Date Coverage End Date [facility] Ppo [address] [place] [address] [id number] DAVE PASCUAL Self - patient is the [...] Surgical History Surgery Date(Month/Year) Removal of gallbladder (91557) 9 Any surgical history 07/08/2018 shoulder surgery ovarian cyst Hospitalization History Reason Date(Month/Year) surgeries
--- OUTSIDE RECORDS SUMMARY | 2025-08-03 02:58 | XMS_ITS | Encounter Summary ---
Author Organization [employer] Address 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
--- OUTSIDE RECORDS SUMMARY | 2025-08-03 02:58 | XMS_ITS | Encounter Summary ---
Author Organization [facility] Address [address] [place] [address] Care Team Providers Care Civil Preparedness Coordinator Name Role Phone Chelsie Pleitez MD Primary Care Provider [phone] Encounter Details Date Type Department Care Team (Late st Contact Info) Description 12/09/1998 Outpatient Historical HIS 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
--- OUTSIDE RECORDS SUMMARY | 2025-08-03 02:58 | XMS_ITS | Encounter Summary ---
Author Organization [employer] Address [address] [place] [address] Care Team Providers Care Lure Maker Name Role Phone Chelsie Pleitez MD Primary Care Provider [phone] Encounter Details Date Type Department Care Team [...] on file Legal Sex Female 4:46 AM POULTRY SCALDER Gender Identity Not on file Sexual Orientation [...] documented as of this encounter Care Teams Lure Maker Relationship Specialty Start [place] [address] [place] [address] PCP - General Internal Medicine 09/01/14 documented as of this encounter
--- OUTSIDE RECORDS SUMMARY | 2025-08-03 02:58 | XMS_ITS | Clinical Summary ---
Author Organization [facility] Address [address] [facility] [place] [address] Care Team Providers Care Wafer Polishing Lead Worker Name Role Phone Chelsie Pleitez MD Primary Care Provider [phone] Allergies Active Allergy Reactions Criticality Noted Date Comments Antifungal - Imidazole Abdominal Pain High 8 Burning abdominal pain with all antifungals Nickel Rash Medium 06/21/2015 Medications buPROPion HCl (WELLBUTRIN XL) 300 mg Extended Release 24 hour tabletIndicatio ns:Situational mixed anxiety and depressive disorder Take 1 Tablet (300 mg) by mouth daily bean sprout grower. 90 Tablet 3 8 Active buPROPion HCl (WELLBUTRIN XL) 150 mg Extended Release 24 hour tabletIndicatio ns:Situational mixed anxiety and depressive disorder Take 1 Tablet (150 mg) by mouth daily bean sprout grower Take with 300 mg tablet. 90 Tablet [...] - 06/15/2025 11:59 PM CDT Hospital Encounter [facility] [address] [address] Tico Choi MD Discharge Disposition: [...] on file Legal Sex Female 4:46 AM PROCESS COACH Gender Identity Not on file Sexual Orientation Not on file Occupation Industry Job Start Date Job End Date Not on file Not on file Not on file Not on file Last Filed Vital Signs Vital Sign Reading Time Taken Comments Blood Pressure 108/66 08/31/2019 11:37 AM PROCESS COACH Pulse 67 08/31/2019 11:37 AM PROCESS COACH Temperature 36.4 C (97.5 F) 08/17/2019 8:28 AM CDT Respiratory Rate 18 08/06/2019 4:11 PM CDT Oxygen Saturation 98% 08/31/2019 11:37 AM PROCESS COACH Inhaled Oxygen Concentration - - Weight 73 kg (161 lb) 09/10/2019 2:11 PM PROCESS COACH Height 175.3 cm (5' 9) 09/10/2019 2:11 PM PROCESS COACH Body Mass Index 23.78 09/10/2019 2:11 PM PROCESS COACH Plan of Treatment Health Maintenance Due Date [...] 08/12/2016, 10/27/2007 Medical Devices Implanted Type Area Snack Foods Mixer Operator Device Identifier Shelf Expiration Date Model / Serial / Lot Infuse Protein Kit [id number] - [id number] Implanted:Qty: 1 on 06/29/2015 by Maryjo Choi MD at [facility] [employer] SOFAMOR DANEK 03/26/2016 [id number] / / [id number] Seamguard Endogia 60 Prpl [id number] - [id number] Implanted:Qty: 3 on 06/24/2018 by Anurag Lee MD at [facility] Biological N/A: Stomach [employer] 02/23/2021 [id number] / / [id number] Seamguard Endogia 60 Blck [id number] - [id number] Implanted:Qty: 2 on 06/24/2018 by Anurag Lee MD at [facility] Biological N/A: Stomach [employer] 02/23/2021 [id number] / / [id number] Capstone Spinal System Implanted:Qty: 1 on 06/29/2015 by Maryjo Choi MD at [facility] Cage N/A: Spine Lumbar [employer] - SPINAL fka KYPHON 11/20/2019 [id number] / / [id number] Solera Sextant Implanted:Qty: 2 on 06/29/2015 by Maryjo Choi MD at [facility] [place] N/A: Spine Lumbar [employer] - SPINAL fka KYPHON [id number] / / Description:sterilized jun 28, 2015 load 19 Screw Solera Ma 6.5x35mm [id number] - Ssterilized Jun 28, 2015 Load 19 Implanted:Qty: 2 on 06/29/2015 by Maryjo Choi MD at [facility] Screw N/A: Spine Lumbar [employer]- SOFAMOR DANEK [id number] / STERILIZED JUN 28, 2015 LOAD 19 / Screw Solera Ma 6.5x45mm [id number] - Ssterilized Jun 28, 2015 Load 19 Implanted:Qty: 2 on 06/29/2015 by Maryjo Choi MD at [facility] Screw N/A: Spine Lumbar [employer] SOFAMOR DANEK [id number] / STERILIZED JUN 28, 2015 LOAD 19 / Set Screw Sextant Break-Off [id number] - Ssterilized Jun 28, 2015 Load 19 Implanted:Qty: 4 on 06/29/2015 by Maryjo Choi MD at [facility] Screw N/A: Spine Lumbar [employer]- SOFAMOR DANEK [id number] / STERILIZED JUN 28, 2015 LOAD 19 / Sealant Floseal W/ Adptr 10ml [id number] - [id number] Implanted:Qty: 1 on 06/29/2015 by Maryjo Choi MD at [facility] Sealant N/A: Spine Lumbar DURBIN- BIOS[employer]ENCE 08/26/2016 [id number] / / [id number] Procedures Procedure Name Priority Date/Time Associated Diagnosis Comments US PELVIS + TRANSVAG NON OB Routine 06/15/2025 3:27 PM CDT PCOS (polycystic ovarian syndrome) HEMOGLOBIN A1C Routine 09/16/2018 10:23 AM PROCESS COACH Prediabetes from Last 3 Months or Most [...] Result * HEMOGLOBIN A1C (09/16/2018 10:23 AM PROCESS COACH) HEMOGLOBIN A1C 5.4 <5.7 % 09/16/2018 5:20 PM [facility] [employer] [facility] EST. AVG GLUCOSE, A1C 108 mg/dL 09/16/2018 5:20 PM [facility] [employer] [facility] Blood Venipuncture / Unknown 09/16/2018 10:23 AM PROCESS COACH 09/16/2018 10:23 AM [facility] [employer] [facility] - 09/16/2018 5:20 PM PROCESS COACH HGB A1C INTERPRETATION NORMAL: <5.7% PRE-DIABETES: 5.7 - 6.4% DIABETES: 6.5% OR GREATER us Chelsie Pleitez MD CHEMISTRY ORDERABLES Final Resul t [facility]# [id number] [address] [place] [address] from Last 3 Months or Most Recently Relevant to Health Maintenance Insurance BCBS BLUE ACCESS/TRUE BLUE PPO RX [employer] Express Advance Directives For more information, please contact: [phone] Documents on File Type Date Recorded Patient Factory Supervisor Expl anation Advance Directive POA 07/05/2015 12:18 [...] 6:56 AM 06/24/2018 9:57 AM Care Teams Wafer Polishing Lead Worker Relationship Specialty [place] [address] [place] [address] PCP - General Internal Medicine 09/01/14
--- OUTSIDE RECORDS SUMMARY | 2025-08-03 02:58 | XMS_ITS | Encounter Summary ---
Author Organization [employer] Address 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
--- OUTSIDE RECORDS SUMMARY | 2025-08-03 02:58 | XMS_ITS | Encounter Summary ---
Author Organization [email or web address] Address [address] [place] [address] Care Team Providers Care Core Drill Operator Helper Name Role Phone Chelsie Pleitez MD Primary Care Provider [phone] Encounter Details Date Type Department Care Team (Late st Contact Info) Description 07/06/2018 Abstract [facility] [address] [address] Anurag Lee MD [address] [address] Social History Tobacco Use Types Packs/Day Years Used Date Smoking Tobacco: Never Smokeless Tobacco: Never Alcohol Use Standard Drinks/Week Comments Yes 1 (1 standard drink = 0.6 oz pur e alcohol) Social alcohol intake Comments No Sex and Gender Information Value Date Recorded Sex Assigned at Not on file 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
--- OUTSIDE RECORDS SUMMARY | 2025-08-03 02:58 | XMS_ITS | Encounter Summary ---
Author Organization [employer] Address [address] [place] [address] Care Team Providers Care Signal Person Name Role Phone Chelsie Pleitez MD Primary Care Provider [phone] Encounter Details Date Type Department Care Team [...] on file Legal Sex Female 4:46 AM RE ETCHER Gender Identity Not on file Sexual Orientation [...] documented as of this encounter Care Teams Signal Person Relationship Specialty Start [place] [address] [place] [address] PCP - General Internal Medicine 09/01/14 documented as of this encounter
--- OUTSIDE RECORDS SUMMARY | 2025-08-03 02:58 | XMS_ITS | Encounter Summary ---
Author Organization [employer] Address [address] [place] [address] Care Team Providers Care Carbon Cleaner Name Role Phone Chelsie Pleitez MD Primary Care Provider [phone] Encounter Details Date Type Department Care Team [...] on file Legal Sex Female 4:46 AM C CONSULTANT Gender Identity Not on file Sexual [...] documented as of this encounter Care Teams Carbon Cleaner Relationship Specialty [place] [address] [place] [address] PCP - General Internal Medicine 09/01/14 documented as of this encounter
--- OUTSIDE RECORDS SUMMARY | 2025-08-03 02:58 | XMS_ITS | Encounter Summary ---
Author Organization [employer] Address 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
--- OUTSIDE RECORDS SUMMARY | 2025-08-03 02:58 | XMS_ITS | Clinical Summary ---
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
--- OUTSIDE RECORDS SUMMARY | 2025-08-03 02:59 | XMS_ITS | Encounter Summary ---
Author Organization [employer] Address [address] [place] [address] Care Team Providers Care Housekeeping Director Name Role Phone Chelsie Pleitez MD Primary Care Provider [phone] Encounter Details Date Type Department Care Team [...] on file Legal Sex Female 4:46 AM SISAL PICKER Gender Identity Not on file Sexual Orientation [...] documented as of this encounter Care Teams Housekeeping Director Relationship Specialty Start [place] [address] [place] [address] PCP - General Internal Medicine 09/01/14 documented as of this encounter
--- OUTSIDE RECORDS SUMMARY | 2025-08-03 02:59 | XMS_ITS | Data Portability ---
Author Organization [facility] [employer], Main Office Address [address] [place] [address] Assessment Encounter Date Assessment Date Assessment LastModified [...] improve the range of motion. Recommend using vyjw-xww-kaunidn topical anti-inflammatory cream, Voltaren, for pain management. [...] positive Nima, positive Neer and Reeves, positive Elizabeth's. With AC compression. MRI was reviewed, demonstrating [...] Positive Nima positive Neer and Reeves positive Elizabeth's.. We will proceed with surgery for her [...] L shoulder post op. Thanks [address] [facility] [place] [facility], [address], [place], [address], 5 09:20:31 physical therapist referral - [facility]AL [facility] TREAT 2023 024 [facility] [place] [facility], [address], [place], [address], 4 16:15:10 Procedures None recorded. Surgeries None recorded. Imaging XR, shoulder [address] [facility] [place], [address], [place], [address], 4 07:35:02 Medication Orders cyclobenza candida 10 mg tablet 2023 024 [employer] [id number], [address], [place], [place], [id number], 4 11:54:30 Patient TargetsNo targets recorded. Patient [...] [place] [address], [place], [address], 06/01/2024 09:10:49 06/09/2006/09/2024 MRI, shoul kaushik, w/o contr ast No observ ation record ed. [facility] [address] [place], [address], 07/05/2024 13:28:58 Result Notes None recorded. Problems Name Problem SNOMED Code Status Onset Date Resolution Date Notes Provider Name and Address Organization Details Recorded Time Degenerati on of lumbar interverte bral disc 18426602 Active 2022 Fusion L5 Wendy Sherman MD [address], [place], [address], [employer] 3 08:34:52 Cyst of ovary 78512205 Active 2022 Wendy Sherman MD [address], [place], [address], [employer] 3 08:38:26 Weight gain 2937286 Active 2022 Wendy Sherman MD [address] [place], [address], [employer] 3 08:43:45 Diarrhea 65144312 Active 2022 Wendy Sherman MD [address], [place], [address], [employer] 3 08:47:03 Chronic diarrhea 803476910 Active 2022 Wendy Sherman MD [address], [place], [address], [facility] 3 08:47:10 Attention deficit hyperactiv ity disorder 989665196 Active 2022 Wendy Sherman MD [address], [place], [address], [facility] 3 08:49:44 Gastroesop hageal reflux disease without esophagiti s 919945246 Active 2022 Wendy Sherman MD [address], [place], [address], [facility] 3 08:44:26 Thoracic back pain 552984393 Active 2022 Wendy Sherman MD [address], [place], [address], [facility] 3 08:49:06 Cough 53825876 Active 2022 Wendy Sherman MD [address], [place], [address], [facility] 3 12:01:40 Vitamin D deficiency 46749388 Active 2022 Wendy Sherman MD [address], [place], [address], [facility] 3 08:54:54 Iron deficiency anemia 03943125 Active 2022 Wendy Sherman MD [address], [place], [address], [facility] 3 08:54:59 Mixed anxiety and depressive disorder 855966150 Active 2022 CHRISTIAN Hylton [address], [place], [address], [facility] 3 15:39:45 Giardiasis 78848996 Active 2022 John SANTOS Santiago-C [address] [facility] [address], [place], [address], [facility] [employer] [facility] 3 14:33:02 Pain of left shoulder joint 0382462525826 9109 Active 2023 John SANTOS Santiago-C [address] [facility], [address], [address], [facility] [employer] [facility] 4 08:13:07 Rupture of rotator cuff of right shoulder 0174506869434 9103 Active 2023 Gregory García MD [address] [facility], [address] [address], [place], [address], [facility] [employer] [facility] 4 01:00:45 Rupture of rotator cuff of left shoulder 7990869288902 9102 Active 2023 Gregory García MD [address] [facility], [address] [address], [place], [address], [facility] 4 09:38:32 Gastroente ritis 62342462 Active 2024 [facility], [facility] 5 10:54:46 Problem Notes None recorded. Procedures Surgical History Date Name Laterality Status Provider Name and Address Organization Details Recorded Time 01/12/20 Shoulder completed MARIA EUGENIA Conner [facility] 01/18/2025 09:37:49 Spinal Fusion completed Naomi Perdomo CNA [facility] 06/01/2024 09:09:35 laparoscopic sleeve gastrectomy completed Naomi Perdomo G[employer] COMPASS TE[employer] [facility] 06/01/2024 09:09:59 Imaging Results None recorded. Procedure Notes None recorded. Medical Equipment None Reported. Allergies Allergen ID Allergen Name Allergen Category Reaction Reaction Severity Criticality Documentation Date Start Date Code Code System Note Provider Name and Address Organization Details Recorded Time 62346 miconazol e medicatio n Not available Not available Not available 01/07/2023 6932 RxNosophie Sherman MD [address], [place], [address], [facility] [employer] [facility] 3 08:32:06 40025 terbinafi ne medicatio n Not available Not available Not available 01/07/2023 45918 RxHubert Sherman MD [address], [place], [address], [facility] [employer] [facility] 3 08:32:27 Medications Name Sig Start [...] Updated DateTime 12/29/2024 172.72 cm 33.5 kg/m2 71505.32 g Naomi Perdomo [facility] [employer] [facility] [employer] 12/29/2024 10:22:31 Date Recorded Body height Body mass index (BMI) Body weight Pain severity - 0-10 verbal numeric rating [Score] - Reported Provider Name and Address Organization Details Last Updated DateTime 01/24/2025 172.72 cm 33.5 kg/m2 27077.32 g 2 Nanci Leslie Devon [employer] [facility] [employer] [facility] 01/24/2025 14:00:23 Date Recorded Body height Body mass index (BMI) Body weight Provider Name and Address Organization Details Last Updated DateTime 02/23/2025 172.72 cm 33.5 kg/m2 35559.32 g Naomi Perdomo [facility] [employer] 02/23/2025 09:26:59 Date Recorded Body height Body mass index (BMI) Body weight Provider Name and Address Organization Details Last Updated DateTime 06/01/2024 172.72 cm 34.2 kg/m2 760898.28 g Naomi Perdomo CNA [employer] 06/01/2024 09:06:55 Date Recorded Body height Body mass index (BMI) Body weight Provider Name and Address Organization Details Last Updated DateTime 07/21/2024 172.72 cm 34.2 kg/m2 967851.28 g Naomi Perdomo [employer] 07/21/2024 14:25:53 Social History Question Answer Notes LastModified by [employer] Details LastModified Time Tobacco Smoking Status Never Smoker Wendy Sherman MD [address] [place] [address], [address], [facility] [employer] 01/07/2023 08:34:09 What Was The Date Of Your Most Recent Tobacco Screening? 01/07/2023 [email or web address] Information not available 01/07/2023 Sex: Unknown Functional Status Question Answer Note LastModified by [employer] Details LastModified Time What is your level [...] ICD10 Code Diagnosis IMO Codes Diagnosis Note [id number] Wendy Sherman MD [facility] Primary [address] [place] [address] 01/07/2023 08:08:23 01/07/2023 08:59:06 Weight gain 8085608 R63.5 check labsconsid er med for weight loss if normal History of bariatric surgical procedure 847081500 Z98.84 check labs Chronic diarrhea 6898742 09 K52.9 persistent lifelong diarrhea with no previous evaluation GI referral given Attention deficit hyperactivity disorder 824582450 F90.9 trial of atomoxetin e 40 mg daily with foodhas failed bupropion due to med s/ereviewe d potential med s/ef/u in 4 weeks or sooner if needed [id number] Wendy Sherman MD [address] [address] 02/10/2023 08:23:11 02/10/2023 08:56:15 Attention deficit hyperactivity disorder 628486352 F90.9 trial of atomoxetin e 40 mg daily with food when her nausea/lourdes d is improvedha s failed bupropion due to med s/ereviewe d potential med s/ef/u in 4 weeks or sooner if needed Gastroesop hageal reflux disease without esophagitis 892828436 K21.9 Avoid greasy/spi cy/acidic foodEat small, frequent mealsCall if any worsening symptoms including increased pain or blood in stools or if symptoms do not resolve in 14 dayspantop razole 40 mg dailyfamot idine 40 mg po qhsGI referral had already been givenf/u in 4 weeks or sooner if needed Thoracic back pain 28400 8004 M54.6 supportive careketoro lac 30 mg IM x 1call/retu rn if no improvemen t in 1-2 days or sooner if neededrevi ewed s/s that warrant urgent/chelo rgent eval in meantime [id number] Wendy Sherman MD [address] [place] [address] 03/18/2023 08:00:19 03/18/2023 10:56:54 Gastroesophageal reflux disease without esophagitis 867093789 K21.9 Avoid greasy/spi cy/acidic foodEat small, frequent mealsCall if any worsening symptoms including increased pain or blood in stools or if symptoms do not resolve in 14 dayspantop razole 40 mg dailyfamot idine 40 mg po qhsGI referral had already been givenf/u in 4 weeks or sooner if needed update 03/18/23: plan to continue pantoprazo le for 1 year Attention deficit hyperactivity disorder 077852346 F90.9 has failed bupropion due to med s/eimprove d but not yet to baseline, increase atomoxetin e 60 mg daily Vitamin D deficiency 347 06752 E55.9 vitamin d3 2000 IU once daily Iron defic iency anemia 38331814 D50.9 cannot tolerate oral ironrepeat labs in 3 months [id number] CHRISTIAN Hylton [facility] Primary [facility] [address] [place] [address] 05/13/2023 15:21:15 05/13/2023 17:26:44 Mixed anxiety and depressive disorder 458087730 F41.8 Has tried celexa in the past, but would like to go with another medication . Will try lowest dose of lexapro for maintenanc e. Wants something that works prn as well that is not stimulatin g or habit forming. Will trial hydroxyzin e [id number] CHRISTIAN [place]yl[place] [facility] Primary [facility] [address] [place] [address] 05/18/2024 08:00:16 05/18/2024 08:23:00 Pain of left shoulder joint 1332276814 1538382 M25.512 pain noted to left shoulder since recently going swimming (exac old rugby injuries)n oting weakness/d ecreased ROM since the incidentmi ssed work yesterday d/t painwent to last Friday and was given toradol injection with little reliefuses heat/ice/m assage gun with [id number] Gregory García MD [facility] [place] [address] [place] [address] 06/01/2024 08:57:09 06/01/2024 09:52:36 Pain of left shoulder joint 8448440096 0750631 M25.512 Rupture of rotator cuff of left shoulder 8026454731 2357815 M75.911 [id number] Gregory García MD [facility] [place] [address] [place] [address] 07/21/2024 14:19:59 07/21/2024 14:40:30 Rupture of rotator cuff of left shoulder 7343370195 6077679 M75.102 Pain of le ft shoulder joint 4294026906 7756007 M25.762 [id number] Gregory García MD [facility] [place] [address] [place] [address] 12/29/2024 10:19:27 12/29/2024 10:53:16 Rupture of rotator cuff of left shoulder 6097165806 5451971 M75.102 Pain of le ft shoulder joint 5870824616 1669657 M25.819 [id number] Gregory García MD [facility] [place] [address] [place] [address] 01/24/2025 13:53:07 01/24/2025 14:20:26 Rupture of rotator cuff of right shoulder 5192134287 6262294 M75.101 Pain of le ft shoulder joint 0051710476 6218059 M25.504 [id number] Gregory García MD [facility] [place] [address] [place] [address] 02/23/2025 09:23:58 02/23/2025 09:42:54 Pain of left shoulder joint 1091007151 2563323 M25.512 Rupture of rotator cuff of left shoulder 6768742777 0646740 M75.102 Health Concerns Section Related Observation LastModified by Organization Detai ls LastModified Time None Recorded Concern Status LastModified by Organization Details LastModified Time None Recorded Advance Directives Directive None Recorded Payers Insurance Date Sequence Insurance Name Policy Number Policy Herrera Covered Member ID Herrera Member ID Guarantor Name 02/28/2025 1 [place] [id number] Gaviota Mark [id number] Gaviota Mark OBGyn Episode No OBEpisode recorded.
[2025-08-03 06:38] LABS: BEDSIDEPREGUCG Negative (Negative)
[2025-08-03] MEDS: LACTATED RINGERS 1,000 ML 30 ML IV CONT ×2 (06:58→10:26)
[2025-08-03] MEDS: ACETAMINOPHEN 500 MG TABLET 1000 MG PO ×3 (06:58→18:32)
--- NOTE | 2025-08-03 07:11 | WPDANESEPPF ---
Anes - Initial Pre Proc Eval Procedure: Operation Date: 08/03/25 07:30 Proposed Procedures p Robotic Vaginal Hysterectomy with Bilateral Salpingectomy - Tico Choi MD Date/Time: 08/03/25 07:11 Surgeon: Tico Choi MD Pre Op Diagnosis: Abnormal Uterine Bleeding Patient Data Age: 40 Gender: F Height: 1.73 m Weight: 106.9 kg Last Vital Signs Temp 36.7 C 08/03/25 06:20 Pulse 65 08/03/25 06:20 Resp 16 08/03/25 06:20 BP 94/60 L 08/03/25 06:20 Pulse Ox 99 08/03/25 06:20 O2 Del Method Room Air 08/03/25 06:20 Allergies Allergy/AdvReac Type Severity Reaction Status Date / Time NSAIDS (Non-Steroidal AdvReac Mild Other Verified 07/26/25 14:46 Anti-Inflamma antifungal AdvReac Mild GI UPSET Uncoded 07/26/25 13:45 Home Medications ?Medication ?Instructions ?Recorded ?Confirmed ?Type hydroxyzine HCl 10 mg tablet 10 mg PO TID PRN anxiety 05/20/25 07/26/25 History escitalopram oxalate 10 mg tablet 20 mg PO DAILY 07/20/25 07/26/25 History (Lexapro) scopolamine base 1 mg over 3 days 1 patch transdermal ONCE #1 ea 07/24/25 07/26/25 Rx transdermal patch ferrous sulfate 325 mg (65 mg 325 mg PO DAILY 07/26/25 07/26/25 History iron) tablet,delayed release propranolol 10 mg tablet 10 mg PO QID PRN anxiety 07/26/25 07/26/25 History sertraline 50 mg tablet 50 mg PO DAILY 07/26/25 07/26/25 History Laboratory Tests 08/03/25 06:05 POC Urine HCG, Qual Negative (Negative) Patient hx anesthesia problems: none Family hx anesthesia problems: post op nausea/vomiting Results Review: All pre-operative results and documents have been reviewed as part of the pre-operative evaluation. [facility] Past Medical History Medical History PCOS (polycystic ovarian syndrome) Headache Anxiety ADHD Surgical History Surgical History H/O gastric sleeve S/P ovarian cystectomy History of cholecystectomy History of dilatation and curettage History of back surgery Family History Family History Other Alcoholism Depression Hypertension Social History Social History Smoking status: Never smoker Second hand tobacco smoke exposure: No Alcohol intake: current Alcohol use details: Rarely Substance use: current Substance use type: marijuana Other substance usage details: Smoke daily for chronic back pain Lack of Transportation: No Lack of Food: Never True Current Housing: I Have Housing Concerned About Future Housing: No Difficulty Paying Gas/Electric Bills: No Difficulty Paying for Meds: No Currently Unemployed: No Education: Bachelor's Degree Difficulty w/ Childcare or Family Care: No Living arrangements: with family Spiritual care concerns: No Anes - Eval Final PreProcedure Day of Procedure 08/03/25 07:11 Patient weight: obese Heart: regular rate and rhythm Lungs: clear to auscultation Airway: Mallampati scale class II Neurological: alert and oriented Last oral intake: >/= 8 hours ASA classification: III Emergent: no Anesthetic plan: proceed Anesthesia type and monitoring: general ETT and standard monitoring Results Review: All pre-operative results and documents have been reviewed as part of the pre-operative evaluation. Informed Consent: The patient's anesthetic plan and its attendant risks and benefits were discussed with the patient/family/POA. Questions were solicited and answers provided to the satisfaction of the patient/family/POA.
[2025-08-03] MEDS: MIDAZOLAM HCL (*CRX) 2 MG/2 ML VIAL IV PUSH (07:15)
--- NOTE | 2025-08-03 07:18 | WPDHPUPDATE1 ---
History and Physical Update Update Date/Time: 08/03/25 07:18 History and Physical has been reviewed, including an updated exam of the patient. There are NO changes in the patient's condition. Risks, benefits, and alternatives have been discussed and questions answered. Patient agrees to proceed with procedure.
[2025-08-03] MEDS: ENOXAPARIN 30 MG/0.3 ML SYRINGE SUB-Q (07:20)
[2025-08-03] MEDS: SCOPOLAMINE 1 MG PATCH 1 PATCH TRANSDERM (07:25)
[2025-08-03] MEDS: ceFAZolin 2 GM in SODIUM CHLORIDE 0.9% IV 50 ML 100 ML IVPB (07:30)
[2025-08-03] MEDS: metroNIDAZOLE 500 MG/ISO 100ML 500 MG/100 ML BAG 100 MG IVPB (08:15)
--- NOTE | 2025-08-03 09:28 | S_PTH ---
PATIENT: Gaviota Mark LOC: [facility] U#:[id number] AGE/SX: 40/F ROOM: RE08/03/[address]: Tico Choi MD : 1985 BED: DIS: 08/04/2025 SPEC #: [id number] RECD: 08/03/25 11:15 STATUS: JENNIFER REQ #: [id number] ZACHARY: 08/03/25 09:[address]: Tico Choi DEPT: [facility] Surgical RECD BY: Shantel Fitzgerald ENTERED: 08/03/25 11:16 SP TYPE: Surgical OTHR DR: REFRIGERATING ENGINEER PHYSICIAN Tissues: A - Uterus B - Ovary Procedures: Hematoxylin and Eosin Stain Gross and Microscopic Level 4 Gross and Microscopic Level 5
--- NOTE | 2025-08-03 10:18 | W.PM.PROC2 ---
Procedure Note - Detailed Date of Procedure 08/03/25 Pre-op Diagnosis Abnormal Uterine Bleeding Endometrial polyp Post-op Diagnosis Other (Abnormal Uterine Bleeding, Endometrial polyp, iSevere pelvic adhesive disease) Procedure Performed 1. laparoscopic robotic assisted total vaginal hysterectomy with salpingectomy and left oophorectomy 2. Lysis of adhesions - this required an additional 20 minutes to the procedure for lysis of all of adhesions 3. Cystoscopy Surgeon Tico Choi MD Anesthesia General Indications long history of abnormal uterine bleeding recurrent endometrial polyps she wanted definitive treatment. Findings 1. uterus normal size there were severe adhesions omentum to the left side of the mid abdomen, there were filmy adhesions diffusely lower pelvis which were lysed, there were also severe adhesions of the fallopian tubes and ovaries to the posterior superior uterus and to the distal simon intestinal fat, normal cystoscopy with bilateral jetting from the ureteral orifi Description of Procedure After informed consent was obtained she was taken to the operating room and general endotracheal anesthesia was administered. She was placed in low lithotomy position. She was and prepped and draped in sterile fashion. Miguel catheter placed in bladder. Attention was turned to the vagina speculum was inserted. Single-tooth tenaculum placed on anterior lip of the cervix the uterus sounded to 6 cm. The cervix was dilated to a 8 Escamilla dilator. A size 6 uterine manipulator was inserted and secured. A size 3.0 colp cup was secured in the vagina. Then attention was turned to the abdomen .5% marcaine injected subcutaneously prior to each incision. An incision was made horizontal 2 cm above the umbilicus. the Veress needle was inserted confirmation into the abdomen obtained with normal peritoneal pressures a pneumoperitoneum of 15 mm per mercury was obtained.The robotic port and camera inserted into abdomen. The other incisions were made to the left and right of the initial incision an car rental sales assistant port superior and right medial to the initial incision. Patient was placed and adequate steep Trendelenburg position to allow adequate visualization in the pelvis.The robotic ports were inserted. The robotic arms were attached. Attention was turned to the surgery console and the adhesions of the omentum were lysed to achieve adequate visualization into the pelvis. Attention was turned to the right round ligament which was ligated and the anterior leaf of the broad ligament was dissected. The vesicouterine peritoneum was dissected from the cervix. The ascending uterine vessels were ligated. Both ovaries were attached diffusely and the fallopian tubes to the top of the posterior uterus these adhesions were lysed to allow mobilization of the fallopian tube. The fallopian tube on the right was ligated the and ascending vessels on the right were ligated and the uterine vessels were ligated. Attention was turned to the left round ligament which was ligated and anterior leaf of the broad ligament dissected anteriorly the bladder was dissected below the palpable colpotomy cup. The left fallopian tube adhesions were lysed and the fallopian 2 was ligated from the broad ligament the ovarian ligament was ligated and the ascending vessels were ligated the left uterine vessels were ligated. At this time the both ovaries that were adhesed to the uterus were lysed and this did free up the ovaries though they were attached distally to each other. and anterior colpotomy was made and the cervix was ligated from the vagina. The right fallopian tube was removed through the vagina. The vaginal cuff was closed with 2 0 Vicryl V lock sutures. The pelvis was irrigated. The right ovary did have some bleeding the right ovary was ligated from its attachment to the left ovary and there was some bleeding which required the ovary to be removed. The infundibulopelvic ligament was ligated. The ovary was placed in a Endo-Catch bag. The left ovary was normal. Hemostatic. He Moderna applied to the pelvis after irrigation. The right ovary was removed and the Endo-Catch bag was removed the patient was taken out of Trendelenburg position and the pneumoperitoneum was released the skin incisions were closed with 4-0 Vicryl. A cystoscopy was performed and the bladder cavity was normal and there was bilateral jetting from both ureteral orifi. Sponge count correct. She was extubated in the operating room. She was taken to recovery in stable condition. Estimated Blood Loss 20 Drains No Packing No Pathology Yes ( Uterus with cervix and right ovary and right and left fallopian tube) Complications No immediate complications Condition Stable Disposition PACU [facility] Billing Surgery - Charge Forward: Surgery Billing
[2025-08-03] MEDS: fentaNYL CITRATE INJ (*CRX) 100 MCG/2 ML VIAL 25 MCG IV PUSH ×2 (11:03→11:12)
--- NOTE | 2025-08-03 12:00 | ADMGEN ---
1151-This patient, Gaviota Mark, was admitted to OB 2nd Floor Room 286-00. Patient/family oriented to hospital policies and general routines including ID bracelet, bed and alarms, visiting hours, pain management, procedures, bathroom and other care routines, personal items, smoking policy, room service/diet, and visiting hours. Information on how to activate the Rapid Response Team has been discussed. Patient/Family are encouraged to report perceived risks to care and to ask questions if they do not understand what they are told or what they should do.
[2025-08-03] MEDS: SIMETHICONE 80 MG TAB.CHEW PO ×2 (12:22→16:05)
[2025-08-03] MEDS: oxyCODONE HCL (*CRX) 5 MG TAB IR 10 MG PO ×2 (12:27→18:30)
[2025-08-03] MEDS: DEXTROSE 5%/0.45% SOD CHL 1,000 ML 125 ML IV CONT (12:29)
[2025-08-03] MEDS: ceFAZolin 1 GM in SODIUM CHLORIDE 0.9% IV 50 ML 100 ML IVPB (16:02)
[2025-08-03] MEDS: DOCUSATE SODIUM 100 MG CAPSULE PO (16:05)
[2025-08-04 00:15] VITALS: BP 110/69; PULSE 65; RESP 14; TEMP 36.6; O2SAT 98
[2025-08-04] MEDS: oxyCODONE HCL (*CRX) 5 MG TAB IR 10 MG PO ×2 (00:31→07:00)
[2025-08-04] MEDS: ACETAMINOPHEN 500 MG TABLET 1000 MG PO ×2 (00:32→07:00)
[2025-08-04] MEDS: SODIUM CHLORIDE 0.9% IV 50 ML 100 ML (00:35)
[2025-08-04] MEDS: ceFAZolin 1 GM in SODIUM CHLORIDE 0.9% IV 50 ML 100 ML IVPB ×2 (00:35→09:02)
[2025-08-04 05:15] VITALS: BP 113/72; PULSE 70; RESP 18; TEMP 36.7; O2SAT 99
[2025-08-04] MEDS: SIMETHICONE 80 MG TAB.CHEW PO (06:59)
[2025-08-04] MEDS: SOLIFENACIN 5 MG TABLET 10 MG PO (07:00)
[2025-08-04] MEDS: ESCITALOPRAM OXALATE 10 MG TABLET 20 MG PO (07:01)
[2025-08-04] MEDS: DOCUSATE SODIUM 100 MG CAPSULE PO (07:01)
[2025-08-04 08:30] VITALS: BP 107/55; PULSE 66; RESP 16; TEMP 36.3; O2SAT 99
--- NOTE | 2025-08-04 09:40 | PM.GYNPNOP ---
APPLICATION SYSTEMS ENGINEER - A/P Assessment and plan (1) Irregular periods: Code(s): N92.6 - Irregular menstruation, unspecified Status: Acute Assessment and Plan: A: POD#1, doing well. P: Home to f/u as scheduled with Dr. Choi. 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 Tolerating diet. Voiding. Would like to go home. Exam Narrative: AVSS I/O OK ABD soft, nontender. Incisions c/d/i. EXT nontender APPLICATION SYSTEMS ENGINEER - PN: Obj Data Vital Signs Vital Signs: Vital Signs - 24 hr 08/03/25 10:26 08/03/25 10:40 08/03/25 10:45 Temperature 97.3 F L Pulse Rate 68 64 63 Respiratory Rate 20 16 16 Blood Pressure 97/51 L 94/58 L 100/53 L Pulse Oximetry 100 100 96 Oxygen Delivery Simple Face Mask Simple Face Mask Room Air Oxygen Flow Rate 8 8 08/03/25 11:00 08/03/25 11:07 08/03/25 11:15 Temperature Pulse Rate 63 51 L Respiratory Rate 13 20 Blood Pressure 112/81 107/79 Pulse Oximetry 97 96 99 Oxygen Delivery Room Air Nasal Cannula Nasal Cannula Oxygen Flow Rate 2 2 08/03/25 11:30 08/03/25 11:55 08/03/25 12:30 Temperature 97.1 F L Pulse Rate 53 L 55 L 55 L Respiratory Rate 20 18 18 Blood Pressure 111/79 108/70 Pulse Oximetry 99 98 98 Oxygen Delivery Nasal Cannula Room Air Oxygen Flow Rate 2 08/03/25 20:00 08/03/25 20:00 08/04/25 00:15 Temperature 98.0 F Pulse Rate 62 Respiratory Rate 18 Blood Pressure 99/65 L Pulse Oximetry 97 Oxygen Delivery Room Air Room Air Oxygen Flow Rate 08/04/25 00:15 08/04/25 05:15 08/04/25 05:15 Temperature 97.9 F 98.0 F Pulse Rate 65 70 Respiratory Rate 14 18 Blood Pressure 110/69 113/72 Pulse Oximetry 98 99 Oxygen Delivery Room Air Oxygen Flow Rate 08/04/25 08:30 Temperature 97.4 F L Pulse Rate 66 Respiratory Rate 16 Blood Pressure 107/55 L Pulse Oximetry 99 Oxygen Delivery Oxygen Flow Rate Intake/Output Intake/Output: Intake & Output 08/01/25 08/02/25 08/03/25 08/04/25 23:59 23:59 23:59 23:59 Intake Total 2575 50 Output Total 1620 1400 Balance 955 -1350 Meds/Results Medications: Active Medications Generic Name Dose Route Start Last Admin Trade Name Freq PRN Reason Stop Dose Admin Acetaminophen 1,000 mg 08/03/25 12:00 08/04/25 07:00 Acetaminophen 500 Mg Tablet PO 1,000 mg Q6HR AMBERLY Administration Docusate Sodium 100 mg 08/03/25 17:00 08/04/25 07:01 Docusate Sodium 100 Mg Capsule PO 100 mg BID AMBERLY Administration Escitalopram Oxalate 20 mg 08/04/25 09:00 08/04/25 07:01 Escitalopram Oxalate 10 Mg Tablet PO 20 mg DAILY AMBERLY Administration Hydromorphone HCl 0.5 mg 08/03/25 11:38 Hydromorphone Hcl Inj (*Crx) 1 Mg/Ml Syr IV PUSH Q2H PRN Breakthrough Pain Rated 4-6 or NPO Hydroxyzine HCl 10 mg 08/03/25 11:40 Hydroxyzine Hcl 10 Mg Tablet PO TID PRN Anxiety Cefazolin Sodium 1 gm/ Sodium 50 mls @ 100 mls/hr 08/03/25 16:00 08/04/25 09:02 Chloride IVPB 100 mls/hr Q8H AMBERLY Administration Naloxone HCl 0.1 mg 08/03/25 11:38 Naloxone Hcl 0.4 Mg/Ml Vial IV PUSH Q2M PRN Respiratory rate less than 10 Ondansetron HCl 4 mg 08/03/25 11:38 Ondansetron Inj 4 Mg/2 Ml Vial IV PUSH Q6H PRN Nausea And Vomiting Oxycodone HCl 5 mg 08/03/25 11:38 Oxycodone Hcl (*Crx) 5 Mg Tab Ir PO Q4H PRN Pain Rated 4-6 Oxycodone HCl 10 mg 08/03/25 11:38 08/04/25 07:00 Oxycodone Hcl (*Crx) 5 Mg Tab Ir PO 10 mg Q6H PRN Administration Pain Rated 7-10 Propranolol HCl 10 mg 08/03/25 11:40 Propranolol Hcl 10 Mg Tablet PO TID PRN RLS from Hydroxyzine Sertraline HCl 50 mg 08/04/25 09:00 08/04/25 07:29 Sertraline Hcl 50 Mg Tablet PO Not Given DAILY AMBERLY Simethicone 80 mg 08/03/25 12:00 08/04/25 06:59 Simethicone 80 Mg Tab.Chew PO 80 mg TIDWM AMBERLY Administration Solifenacin 10 mg 08/04/25 09:00 08/04/25 07:00 Solifenacin 5 Mg Tablet PO 10 mg DAILY AMBERLY Administration
[2025-08-04] MEDS: INFLUENZA VACCINE 45 MCG/0.5 ML SYRINGE IM (09:55)
== END 2025-08-04 10:07 | disposition home or self-care (01) ==
LOC: ANHSURGERY 05:54 → ANHOB2 13:14
PROVIDERS: Visit Provider Obstetrics & Gynecology
PROC: (CPT 58552; principal; 2025-08-03 07:30)
DX: N84.0 Polyp of corpus uteri (principal); N80.03 Adenomyosis of the uterus; N73.6 Female pelvic peritoneal adhesions (postinfective); G89.18 Other acute postprocedural pain; E28.2 Polycystic ovarian syndrome; F41.9 Anxiety disorder, unspecified; F90.9 Attention-deficit hyperactivity disorder, unspecified type; F12.90 Cannabis use, unspecified, uncomplicated; N94.819 Vulvodynia, unspecified; E66.9 Obesity, unspecified; Z68.35 Body mass index [BMI] 35.0-35.9, adult; Z98.890 Other specified postprocedural states; Z98.84 Bariatric surgery status; Z90.49 Acquired absence of other specified parts of digestive tract; Z98.1 Arthrodesis status; Z23 Encounter for immunization
CPT/HCPCS: 58552; S2900; 88305; 88307; 90471; 90656; 99199; J0690; A9270; G0008; J1100; J1171; J1650; J1836; J2003; J2250; J2405; J2704; J3010; J7120

== ENCOUNTER 2025-10-10 15:09 | Emergency (ER) | payer BC, SELFPAY ==
--- OUTSIDE RECORDS SUMMARY | 2025-06-13 07:00 | XMS_ITS ---
Author Organization [facility] [employer] [facility] Address [address] [address] Care Team Providers Care Dividend Deposit Entry Clerk Name Role Phone Brian Garrett Unavailable [phone] Yue Tinoco Unavailable [phone] REASON FOR VISIT Therapy Visit Social History Sex Assigned At : Social History Observation Description Sex Assigned At Female Encounters Encounter Location Date Provider Diagnosis [facility], [address] [address] 06/13/2025 Yue Tinoco Plan Of Treatment No Information Progress Notes * DAVE PASCUALOB:12/1984 (40 yo F)Acc No.[id number]:06/13/2025 Patient: Marnie TENADAVE Provider: Israel Tinoco :1985 A ge:40 Y S ex:Female Date:06/13/2025 Address:[address] [place], [place] [id number] Data: * Chief Complaints: * T herapy Visit Billing Information: * Procedure Codes: * Electronic signature of Prakash Tinoco LCPC on 10/10/2025 at 06:33 PM GUARD MANAGER Sign off status: Pending Signatures: No Ad Hoc Signature Added * Provider: Israel Tinoco Date: 0 06/13/2025 Generated for Printi ng/Faxing/eTransmitting on: 1 12/11/2024 06:33 PM GUARD MANAGER
--- OUTSIDE RECORDS SUMMARY | 2025-07-14 03:00 | XMS_ITS ---
Author Organization [facility] [employer] [facility] Address [address] [address] Care Team Providers Care Chemistry Department Chair Name Role Phone Brian Garrett Unavailable [phone] Yue Tinoco Unavailable [phone] REASON FOR VISIT Therapy Visit Social History Sex Assigned At : Social History Observation Description Sex Assigned At Female Encounters Encounter Location Date Provider Diagnosis [facility], [address] [address] [address] 07/14/2025 Yue Tinoco Plan Of Treatment No Information Progress Notes * DAVE PASCUALOB:12/1984 (40 yo F)Acc No.[id number]:07/14/2025 Patient: Marnie TENADAVE Provider: Israel Tinoco :1985 A ge:40 Y S ex:Female Date:07/14/2025 Address:[address] [place], [place] [id number] Data: * Chief Complaints: * T herapy Visit Billing Information: * Procedure Codes: * Electronic signature of Prakash Tinoco LCPC on 10/10/2025 at 06:32 PM COIL MAKER Sign off status: Pending Signatures: No Ad Hoc Signature Added * Provider: Israel Tinoco Date: 0 07/14/2025 Generated for Printi ng/Faxing/eTransmitting on: 1 12/11/2024 06:32 PM COIL MAKER
--- NOTE | ~2025-10-10 | CT_ITS ---
EXAMINATION: CT abdomen pelvis w con DATE: 10/10/2025 16:59 INDICATION: Weakness, weight loss, elevated liver function tests. TECHNIQUE: Computed tomography (CT) of the abdomen and pelvis was performed with 100 mL Omnipaque-350 intravenous contrast. Automated exposure control and iterative reconstruction technique were employed. The dose-length product was 1264.31 mGy-cm. COMPARISON: 09/08/2023 FINDINGS: Lung bases are clear. Heart size is normal. Atherosclerotic coronary artery calcification. No pericardial or pleural effusion. Postoperative change of prior sleeve gastrectomy. There is liver surface nodularity with numerous subcentimeter hypodense nodules scattered throughout the liver which could be due to cirrhosis or metastatic disease. Status post cholecystectomy. Splenomegaly measuring 15 cm in craniocaudal length consistent with portal venous hypertension. There are few small linear densities at the head of the pancreas suggestive of surgical clips. Pancreas is otherwise unremarkable. Bilateral adrenal glands and kidneys are normal. Bowels including the appendix are normal. Bladder is normal. The uterus and right ovary are not identified and have likely been surgically resected. Left adnexa is unremarkable. No free intraperitoneal gas or fluid. No pathologically enlarged abdominal or pelvic lymphadenopathy. Combined anterior and posterior spinal fusion at L5-S1 with interbody fusion device and bilateral vertical dale and pedicle screw fixation. Severe disc height loss at L1-L2. IMPRESSION: 1. 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 2. Splenomegaly consistent with secondary portal venous hypertension. Reviewed, dictated and finalized at location A. [employer] IMPRESSION: 1. 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 2. Splenomegaly consistent with secondary portal venous hypertension.
[2025-10-10 15:14] VITALS: BP 113/56; PULSE 94; RESP 20; TEMP 36.5; O2SAT 94
--- NOTE | 2025-10-10 15:22 | ECG_ITS ---
Test Date: 2025-10-10 15:26:35 Measurements Intervals [place] Rate: 92 P: 32 ND: 100 QRS: 14 QRSD: 93 T: 9 QT: 354 QTc: 440 Interpretive Statements SINUS RHYTHM WITH SHORT ND INTERVAL DELAYED PRECORDIAL R/S TRANSITION BORDERLINE ST-T WAVE ABNORMALITY- INFERIOR LEADS BORDERLINE ECG Compared to ECG 12/01/2024 10:40:01 Short ND interval now present Electronically Signed On 10-10-2025 15:58:21 ENGINEERING PROGRAM MANAGER by Rashaad Chahal D.O.
[2025-10-10 15:42] LABS: Hematocrit 38.0 % (37.0-47.0); Hemoglobin 12.5 g/dL (12.0-15.0); Immature Granulocyte Percent A 0.3 % (0-0.5); Lymphocytes Absolute Auto 1.72 K/mm3 (0.9-3.2); Mean Corpuscular HGB Conc 32.9 g/dl (32-36); Mean Corpuscular Hemoglobin 27.1 pg (26-34); Mean Corpuscular Volume 82.3 fl (80-100); Nucleated Red Blood Cells Absolute Auto 0.000 K/mm3 (0.0-0.012); Nucleated Red Blood Cells Perc 0.0 % (0.0-0.2); Platelet Count Result 120 k/mm3 (150-375); Red Blood Count 4.62 M/mm3 (4.2-5.4); White Blood Count 6.2 K/mm3 (4.5-10.0)
[2025-10-10 15:53] LABS: Alanine Aminotransferase 88 U/L (6-35); Albumin Level 4.6 g/dL (3.5-5.1); Alkaline Phosphatase 111 U/L (38-126); Anion Gap 12 mmol/L (4-12); Aspartate Amino Transferase 214 U/L (14-36); Bilirubin,Total 1.5 mg/dL (0.2-1.3); Blood Urea Nitrogen 10 mg/dL (7-17); Calcium 9.4 mg/dL (8.4-10.2); Carbon Dioxide 23 mmol/L (22-30); Chloride 100 mmol/L (98-107); Estimated CRCL calculation 143 ml/min; Estimated Glomerular Filt Rate > 60; Glucose 124 mg/dL (65-110); Potassium 3.8 mmol/L (3.4-5.0); Sodium 135 mmol/L (137-145); Total Protein 8.5 g/dL (6.3-8.2)
[2025-10-10 16:46] VITALS: BP 153/90; PULSE 92; RESP 20; O2SAT 99
--- NOTE | 2025-10-10 16:54 | ED_ITS ---
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 Patient states for the past month or so, she has been having vaginal spotting. She had an episode just after Thanksgiving which she was mowing the lawn a gush of vaginal bleeding. She was seen by her OBGYN who performed pelvic exam abnormalities. She states that over the last couple days, she has had the symptoms again as well so mobile lower abdominal pain. She knows that the bleeding tends to with her bowel movements but denies any stool coming from her vagina. She does note some nausea but no vomiting. Notes approximately 10 lb weight loss in the last week. Related Data Home Medications ?Medication ?Instructions ?Recorded ?Confirmed ?Last Taken ?Type hydroxyzine HCl 10 mg tablet 10 mg PO TID PRN anxiety 05/20/25 09/27/25 Unknown History escitalopram oxalate 10 mg tablet 20 mg PO DAILY 07/2009/27/25 Unknown History (Lexapro) ferrous sulfate 325 mg (65 mg 325 mg PO DAILY 07/26/25 09/27/25 Unknown History iron) tablet,delayed release propranolol 10 mg tablet 10 mg PO QID PRN anxiety 09/27/25 Unknown History Allergies Allergy/AdvReac Type Severity Reaction Status Date / Time NSAIDS (Non-Steroidal AdvReac Mild Other Verified 10/10/25 15:13 Anti-Inflamma antifungal AdvReac Mild GI UPSET Uncoded 09/27/25 13:14 Review of Systems 2 Review of Systems: Gen.: Denies fevers or chills Eyes: Denies eye pain or visual change ENT: Denies congestion Respiratory: Denies shortness of breath or cough CV: Denies chest pain or palpitations GI: As per HPI denies burning, urgency, frequency or hematuria Musculoskeletal: Denies back pain or muscle pain Neuro: Denies numbness, tingling, weakness or focal weakness Skin: Denies rash Except as documented, all other systems reviewed and negative [facility] Past Medical History Medical History (Updated 10/10/25 @ 17:41 by Grayson Shabazz DO) PCOS (polycystic ovarian syndrome) Headache Anxiety ADHD Surgical History Surgical History H/O: hysterectomy H/O gastric sleeve S/P ovarian cystectomy History of cholecystectomy History of dilatation and curettage History of back surgery Family History Family History Other Alcoholism Depression Hypertension Social History Social History Smoking status: Never smoker Second hand tobacco smoke exposure: No Alcohol intake: current Alcohol use details: Rarely Substance use: current Substance use type: marijuana Other substance usage details: Smoke daily for chronic back pain Lack of Transportation: No Lack of Food: Never True Current Housing: I Have Housing Concerned About Future Housing: No Difficulty Paying Gas/Electric Bills: No Difficulty Paying for Meds: No Currently Unemployed: No Education: Bachelor's Degree Difficulty w/ Childcare or Family Care: No Living arrangements: with family Spiritual care concerns: No Exam 2 Narrative: APPEARANCE: No acute distress, nontoxic, resting in bed EYES: EOMI HEENT: Normocephalic, atraumatic, OMM RESPIRATORY: No respiratory distress Clear to auscultation bilaterally with no rhonchi wheezing or rales. CARDIOVASCULAR: Regular rate and rhythm without murmurs rubs or gallops. ABDOMINAL: Soft, nontender, nondistended, no rebound or guarding : Trace blood within the vaginal vault. Cervix is surgically absent. No obvious lacerations. MUSCULOSKELETAl: Moves all extremities. No clubbing, cyanosis or edema. NEURO: Awake and alert. Following commands, speech normal, no focal deficits SKIN:: Warm, dry. No rashes lesions or abrasions PSYCHIATRIC: Normal affect/mood, Course Vital Signs Vital signs: Vital Signs Temperature 97.7 F 10/10/25 15:14 Pulse Rate 94 10/10/25 15:14 Respiratory Rate 20 10/10/25 15:14 Blood Pressure 113/56 L 10/10/25 15:14 Pulse Oximetry 94 10/10/25 15:14 Oxygen Delivery Room Air 10/10/25 15:14 Temperature 97.7 F 10/10/25 15:14 Pulse Rate 92 10/10/25 16:46 Respiratory Rate 20 10/10/25 16:46 Blood Pressure 153/90 H 10/10/25 16:46 Pulse Oximetry 99 10/10/25 16:46 Oxygen Delivery Room Air 10/10/25 15:14 [facility] Narrative Medical decision making narrative: 40-year-old female Presenting for vaginal bleeding. On initial evaluation patient was in no acute distress afebrile, hemodynamic stable. Differentials include but are not limited to: Abnormal vaginal bleeding, laceration, menses, , miscarriage, ectopic Notable exam findings: Mild suprapubic tenderness to palpation, heart and lungs clear. I personally reviewed the patient's lab result. Notable lab findings: CBC without significant abnormalities. Transaminitis with AST at 2:14 a.m. and ALT 88. T bili slightly elevated at 1.5. CT abdomen/pelvis showed multinodular abnormalities within the liver consistent with either cirrhosis or metastatic disease. I personally reviewed the patient's EKGs: Normal sinus rhythm, normal axis, normal intervals, nonspecific ST and T-wave change There was blood within the vaginal vault but no obvious lacerations source of bleeding at this time. CT likely consistent with cirrhosis but possibly consistent with metastatic disease. Because of this, she will be referred to GI for further evaluation who may also be able to perform a scope to potentially see a rectovaginal fistula. She was advised to follow-up with her OBGYN in the next couple days for evaluation. Patient agreeable to the plan. Given strict return precautions. Differential Diagnosis Differential Diagnosis: Abnormal vaginal bleeding, laceration, menses, , miscarriage, ectopic Lab Data [facility] Lab Attestation statement: I personally reviewed the patient's lab results. 10/10/25 15:32 10/10/25 15:32 Labs: Lab Results 10/10/25 Range/Units 15:32 WBC 6.2 (4.5-10.0) K/mm3 RBC 4.62 (4.2-5.4) M/mm3 Hgb 12.5 (12.0-15.0) g/dL Hct 38.0 (37.0-47.0) % MCV 82.3 (80-100) fl MCH 27.1 (26-34) pg MCHC 32.9 (32-36) g/dl RDW 19.0 H (11.5-14.5) % Plt Count 120 L (150-375) k/mm3 MPV 10.3 (7.4-10.4) fl Immature Gran % (Auto) 0.3 (0-0.5) % Neut % (Auto) 61.9 (45.5-73.1) % Lymph % (Auto) 28.0 (18.3-44.2) % Williamson % (Auto) 5.9 (2.6-8.5) % Eos % (Auto) 2.8 (0-4.4) % Baso % (Auto) 1.1 (0.2-1.2) % Lymph # (Auto) 1.72 (0.9-3.2) K/mm3 Williamson # (Auto) 0.4 (0.1-0.6) K/mm3 Eos # (Auto) 0.2 (0-0.3) K/mm3 Baso # (Auto) 0.1 (0.0-0.1) K/mm3 Abs Immat Gran (auto) 0.02 (0.00-0.031) K/mm3 Absolute Neuts (auto) 3.8 (1.3-6.7) K/mm3 Absolute Nucleated RBC 0.000 (0.0-0.012) K/mm3 Nucleated RBC % 0.0 (0.0-0.2) % PT 14.4 (11.1-14.7) Seconds INR 1.1 Sodium 135 L (137-145) mmol/L Potassium 3.8 (3.4-5.0) mmol/L Chloride 100 (98-107) mmol/L Carbon Dioxide 23 (22-30) mmol/L Anion Gap 12 (4-12) mmol/L BUN 10 (7-17) mg/dL Creatinine 0.54 L (0.7-1.0) mg/dL Estim Creat Clear Calc 143 ml/min Estimated GFR > 60 (59 - ) Glucose 124 H (65-110) mg/dL Calcium 9.4 (8.4-10.2) mg/dL Total Bilirubin 1.5 H (0.2-1.3) mg/dL AST 214 H (14-36) U/L ALT 88 H (6-35) U/L Alkaline Phosphatase 111 (38-126) U/L Total Protein 8.5 H (6.3-8.2) g/dL Albumin 4.6 (3.5-5.1) g/dL Hepatitis A IgM Ab Negative (Negative) Hep Bs Antigen Negative (Negative) Hep B Core IgM Ab Negative (Negative) Hepatitis C Ab Screen Negative (Negative) Imaging Data Radiologist's impression: ITS Impressions Abdomen/Pelvis CT 10/10/25 17:04 IMPRESSION: 1. 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 2. Splenomegaly consistent with secondary portal venous hypertension. Discharge Plan Discharge Clinical Impression: Transaminitis, Abnormal vaginal bleeding Patient Disposition: Home Condition: Stable Instructions: Antibiotic Form, Transaminitis (ED) Additional Instructions: Follow-up with GI, Dr. Rooney, in the next week regarding CT findings below. Follow-up with your OBGYN in the next week for re-evaluation. IMPRESSION: 1. 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 2. Splenomegaly consistent with secondary portal venous hypertension. Patient Language: German Prescriptions: New ondansetron 4 mg tablet,disintegrating 4 mg PO Q8H PRN (Reason: nausea and vomiting) Qty: 12 0RF No Action hydroxyzine HCl 10 mg tablet 10 mg PO TID PRN (Reason: anxiety) escitalopram oxalate [Lexapro] 10 mg tablet 20 mg PO DAILY estradiol [Estrace] 0.01 % (0.1 mg/gram) cream 1 g vaginal 3XW Qty: 42.5 0RF propranolol 10 mg tablet 10 mg PO QID PRN (Reason: anxiety) Patient Comments: patient takes with Hydroxyzine as needed ferrous sulfate 325 mg (65 mg iron) tablet,delayed release (DR/EC) 325 mg PO DAILY Patient Comments: Patient stopped taking because it makes her nauseated Follow-up/Referrals: Tico Choi MD [Physician, MUD CAR WORKER] Nabeel Rooney MD [Physician, Gastroenterology] UNKNOWN,DOCTOR [Non-Staff]
[2025-10-10] MEDS: ONDANSETRON INJ 4 MG/2 ML VIAL IV PUSH (17:21)
[2025-10-10] MEDS: ACETAMINOPHEN 500 MG TABLET 1000 MG PO (17:21)
[2025-10-10] MEDS: SODIUM CHLORIDE 0.9% IV 1,000 ML 999 ML IV CONT (17:21)
[2025-10-10 17:57] LABS: INR 1.1; Prothrombin Time 14.4 Seconds (11.1-14.7)
[2025-10-10 18:24] LABS: Hepatitis B Surface Antigen Negative (Negative)
[2025-10-10 18:30] LABS: HAV RESULT Negative (Negative); Hepatitis B Core IgM Result Negative (Negative)
--- OUTSIDE RECORDS SUMMARY | 2025-10-10 18:32 | XMS_ITS | Data Portability ---
Author Organization [place] [facility], Main Office Address [address] [place] [address] Assessment Encounter Date Assessment Date Assessment LastModified [...] improve the range of motion. Recommend using [id number] topical anti-inflammatory cream, Voltaren, for pain management. [...] positive Nima, positive Neer and Reeves, positive [place]'s. With AC compression. MRI was reviewed, demonstrating [...] Positive Nima positive Neer and Reeves positive [place]'s.. We will proceed with surgery for her [...] shoulder post op. Thanks [address] [facility] [facility], [address], [place], [address], 5 09:20:31 physical therapist referral - EVAL AND TREAT 2023 024 [facility] [place] [facility], [address], [place], [address], 4 16:15:10 Procedures None recorded. Surgeries None recorded. Imaging XR, shoulder [address] [facility] [place], [address], [place], [address], 4 07:35:02 Medication Orders cyclobenza candida 10 mg tablet 2023 024 [employer] [id number], [address] [facility], [place], [id number], 4 11:54:30 Patient TargetsNo targets recorded. Patient [...] [place] [address], [place], [address], 06/01/2024 09:10:49 06/09/2006/09/2024 MRI, shoul kaushik, w/o contr ast No observ ation record ed. [email or web address] [facility] [address] [place], [address], 07/05/2024 13:28:58 Result Notes None recorded. Problems Name Problem SNOMED Code Status Onset Date Resolution Date Notes Provider Name and Address Organization Details Recorded Time Degenerati on of lumbar interverte bral disc 78850969 Active 2022 Fusion L5 Wendy Sherman MD [address], [place], [address], [facility]ENTER 3 08:34:52 Cyst of ovary 52819493 Active 2022 Wendy Sherman MD [address], [place], [address], [facility] 3 08:38:26 Weight gain 7893429 Active 2022 Wendy Sherman MD [address] [place], [address], [facility] 3 08:43:45 Diarrhea 37578193 Active 2022 Wendy Sherman MD [address], [place], [address], [facility] 3 08:47:03 Chronic diarrhea 866782891 Active 2022 Wendy Sherman MD [address], [place], [address], [facility] 3 08:47:10 Attention deficit hyperactiv ity disorder 425157541 Active 2022 Wendy Sherman MD [address], [place], [address], [facility] 3 08:49:44 Gastroesop hageal reflux disease without esophagiti s 564782763 Active 2022 Wendy Sherman MD [address], [place], [address], [facility] 3 08:44:26 Thoracic back pain 893417596 Active 2022 Wendy Sherman MD [address], [place], [address], [facility] 3 08:49:06 Cough 22827093 Active 2022 Wendy Sherman MD [address], [place], [address], [facility] 3 12:01:40 Vitamin D deficiency 61316381 Active 2022 Wendy Sherman MD [address], [place], [address], [facility] 3 08:54:54 Iron deficiency anemia 85378570 Active 2022 Wendy Sherman MD [address], [place], [address], [facility] 3 08:54:59 Mixed anxiety and depressive disorder 867538137 Active 2022 CHRISTIAN Hylton [address], [place], [address], [facility] 3 15:39:45 Giardiasis 58304597 Active 2022 John SANTOS Santiago-C [address] [facility], [address] [address], [place], [address], [facility] [employer] [facility] 3 14:33:02 Pain of left shoulder joint 5716032920322 9109 Active 2023 John SANTOS Santiago-C [address] [facility], [address], [address], [facility] [employer] [facility] 4 08:13:07 Rupture of rotator cuff of right shoulder 4045356548353 9103 Active 2023 Gregory García MD [address] [facility], [address] [address], [place], [address], [facility] [employer] [facility] 4 01:00:45 Rupture of rotator cuff of left shoulder 7684950569999 9102 Active 2023 Gregory García MD [address] [facility], [address] [address], [place], [address], [facility] 4 09:38:32 Gastroente ritis 64064857 Active 2024 CONTRERAS [employer] [facility], [facility] 5 10:54:46 Problem Notes None recorded. Procedures Surgical History Date Name Laterality Status Provider Name and Address Organization Details Recorded Time 01/12/20 Shoulder completed MARIA EUGENIA Conner [facility] 01/18/2025 09:37:49 Spinal Fusion completed Naomi Perdomo CNA [facility] 06/01/2024 09:09:35 laparoscopic sleeve gastrectomy completed Naomi Perdomo VAULT MANAGER [facility] 06/01/2024 09:09:59 Imaging Results None recorded. Procedure Notes None recorded. Medical Equipment None Reported. Allergies Allergen ID Allergen Name Allergen Category Reaction Reaction Severity Criticality Documentation Date Start Date Code Code System Note Provider Name and Address Organization Details Recorded Time 00825 miconazol e medicatio n Not available Not available Not available 01/07/2023 6932 RxNosophie Sherman MD [address], [address], [place], [address], [facility] [employer] [facility] 3 08:32:06 46581 terbinafi ne medicatio n Not available Not available Not available 01/07/2023 05388 RxHubert Sherman MD [address], [address], [place], [address], [facility] [employer] [facility] 3 08:32:27 Medications Name Sig Start [...] Updated DateTime 12/29/2024 172.72 cm 33.5 kg/m2 33661.32 g Naomi Perdomo [facility] [employer] [facility] 12/29/2024 10:22:31 Date Recorded Body height Body mass index (BMI) Body weight Pain severity - 0-10 verbal numeric rating [Score] - Reported Provider Name and Address Organization Details Last Updated DateTime 01/24/2025 172.72 cm 33.5 kg/m2 70075.32 g 2 Nanci Leslie [place] [employer] [facility] [employer] [facility] 01/24/2025 14:00:23 Date Recorded Body height Body mass index (BMI) Body weight Provider Name and Address Organization Details Last Updated DateTime 02/23/2025 172.72 cm 33.5 kg/m2 26253.32 g Naomi Perdomo [facility] [employer] [facility] 02/23/2025 09:26:59 Date Recorded Body height Body mass index (BMI) Body weight Provider Name and Address Organization Details Last Updated DateTime 06/01/2024 172.72 cm 34.2 kg/m2 900975.28 g Naomi Perdomo CNA [employer] [facility] 06/01/2024 09:06:55 Date Recorded Body height Body mass index (BMI) Body weight Provider Name and Address Organization Details Last Updated DateTime 07/21/2024 172.72 cm 34.2 kg/m2 968446.28 g Naomi Perdomo VAULT MANAGER [employer] [facility] 07/21/2024 14:25:53 Social History Question Answer Notes LastModified by Organ[employer]at [employer] Details LastModified Time Tobacco Smoking Status Never Smoker Wendy Sherman MD [address] [place] [address], [address], [facility] [employer] [place] 01/07/2023 08:34:09 What Was The Date Of Your Most Recent Tobacco Screening? 01/07/2023 [email or web address] Information not available 01/07/2023 Sex: Unknown Functional Status Question Answer Note LastModified by [employer] Details LastModified Time What is your level [...] ICD10 Code Diagnosis IMO Codes Diagnosis Note [id number] Wendy Sherman MD [facility] Primary [address] [place] [address] 01/07/2023 08:08:23 01/07/2023 08:59:06 Weight gain 6804601 R63.5 check labsconsid er med for weight loss if normal History of bariatric surgical procedure 712765675 Z98.84 check labs Chronic diarrhea 8728056 09 K52.9 persistent lifelong diarrhea with no previous evaluation GI referral given Attention deficit hyperactivity disorder 460425037 F90.9 trial of atomoxetin e 40 mg daily with foodhas failed bupropion due to med s/ereviewe d potential med s/ef/u in 4 weeks or sooner if needed [id number] Wendy Sherman MD [address] [address] 02/10/2023 08:23:11 02/10/2023 08:56:15 Attention deficit hyperactivity disorder 297965382 F90.9 trial of atomoxetin e 40 mg daily with food when her nausea/lourdes d is improvedha s failed bupropion due to med s/ereviewe d potential med s/ef/u in 4 weeks or sooner if needed Gastroesop hageal reflux disease without esophagitis 563346306 K21.9 Avoid greasy/spi cy/acidic foodEat small, frequent mealsCall if any worsening symptoms including increased pain or blood in stools or if symptoms do not resolve in 14 dayspantop razole 40 mg dailyfamot idine 40 mg po qhsGI referral had already been givenf/u in 4 weeks or sooner if needed Thoracic back pain 14725 8004 M54.6 supportive careketoro lac 30 mg IM x 1call/retu rn if no improvemen t in 1-2 days or sooner if neededrevi ewed s/s that warrant urgent/chelo rgent eval in meantime [id number] Wendy Sherman MD [address] [place] [address] 03/18/2023 08:00:19 03/18/2023 10:56:54 Gastroesophageal reflux disease without esophagitis 385203208 K21.9 Avoid greasy/spi cy/acidic foodEat small, frequent mealsCall if any worsening symptoms including increased pain or blood in stools or if symptoms do not resolve in 14 dayspantop razole 40 mg dailyfamot idine 40 mg po qhsGI referral had already been givenf/u in 4 weeks or sooner if needed update 03/18/23: plan to continue pantoprazo le for 1 year Attention deficit hyperactivity disorder 936576196 F90.9 has failed bupropion due to med s/eimprove d but not yet to baseline, increase atomoxetin e 60 mg daily Vitamin D deficiency 347 53486 E55.9 vitamin d3 2000 IU once daily Iron defic iency anemia 03010222 D50.9 cannot tolerate oral ironrepeat labs in 3 [id number]IAN [address] [facility] Primary Care [address] [place] [address] 05/13/2023 15:21:15 05/13/2023 17:26:44 Mixed anxiety and depressive disorder 211456003 F41.8 Has tried celexa in the past, but would like to go with another medication . Will try lowest dose of lexapro for maintenanc e. Wants something that works prn as well that is not stimulatin g or habit forming. Will trial hydroxyzin e [id number] CHRISTIAN Hylton [facility] Primary Care [address] [place] [address] 05/18/2024 08:00:16 05/18/2024 08:23:00 Pain of left shoulder joint 2556604030 1474915 M25.512 pain noted to left shoulder since recently going swimming (exac old rugby injuries)n oting weakness/d ecreased ROM since the incidentmi ssed work yesterday d/t painwent to last Friday and was given toradol injection with little reliefuses heat/ice/m assage gun with [id number] Gregory García MD [facility] [place] [address] [place] [address] 06/01/2024 08:57:09 06/01/2024 09:52:36 Pain of left shoulder joint 3383007735 7517995 M25.512 Rupture of rotator cuff of left shoulder 3951939870 4048761 M75.620 [id number] Gregory García MD [facility] [place] [address] [place] [address] 07/21/2024 14:19:59 07/21/2024 14:40:30 Rupture of rotator cuff of left shoulder 4454116223 8396021 M75.102 Pain of le ft shoulder joint 2950437410 7491404 M25.443 [id number] Gregory García MD [facility] [place] [address] [place] [address] 12/29/2024 10:19:27 12/29/2024 10:53:16 Rupture of rotator cuff of left shoulder 5438800907 0190761 M75.102 Pain of le ft shoulder joint 7138648938 4181301 M25.876 [id number] Gregory García MD [facility] [place] [address] [place] [address] 01/24/2025 13:53:07 01/24/2025 14:20:26 Rupture of rotator cuff of right shoulder 1436144518 8835366 M75.101 Pain of le ft shoulder joint 7976404917 4426263 M25.394 [id number] Gregory García MD [facility] [place] [address] [place] [address] 02/23/2025 09:23:58 02/23/2025 09:42:54 Pain of left shoulder joint 2636033431 1473836 M25.512 Rupture of rotator cuff of left shoulder 5881139979 8010248 M75.102 Health Concerns Section Related Observation LastModified by Organization Detai ls LastModified Time None Recorded Concern Status LastModified by Organization Details LastModified Time None Recorded Advance Directives Directive None Recorded Payers Insurance Date Sequence Insurance Name Policy Number Policy Herrera Covered Member ID Herrera Member ID Guarantor Name 02/28/2025 1 [place] [id number] Gaviota Mark [id number] Gaviota Mark OBGyn Episode No OBEpisode recorded.
--- OUTSIDE RECORDS SUMMARY | 2025-10-10 18:32 | XMS_ITS | Encounter Summary ---
Author Organization [employer] Address [address] [place] [address] Care Team Providers Care Diamond Driller Helper Name Role Phone Chelsie Pleitez MD Primary Care Provider [phone] Encounter Details Date Type Department Care Team [...] on file Legal Sex Female 4:46 AM OVERHAULER HELPER Gender Identity Not on file Sexual Orientation [...] documented as of this encounter Care Teams Diamond Driller Helper Relationship Specialty [place] [address] [place] [address] PCP - General Internal Medicine 09/01/14 documented as of this encounter
--- OUTSIDE RECORDS SUMMARY | 2025-10-10 18:32 | XMS_ITS | Encounter Summary ---
Author Organization [employer] Address [address] [place] [address] Care Team Providers Care Meat Puller Name Role Phone Chelsie Pleitez MD Primary Care Provider [phone] Encounter Details Date Type Department Care Team [...] on file Legal Sex Female 4:46 AM POLYETHYLENE COMBINER Gender Identity Not on file Sexual Orientation [...] documented as of this encounter Care Teams Meat Puller Relationship Specialty [place] [address] [place] [address] PCP - General Internal Medicine 09/01/14 documented as of this encounter
--- OUTSIDE RECORDS SUMMARY | 2025-10-10 18:32 | XMS_ITS | Encounter Summary ---
Author Organization [facility] Address [address] [place] [address] Care Team Providers Care Receiving Team Member Name Role Phone Chelsie Pleitez MD Primary Care Provider [phone] Encounter Details Date Type Department Care Team (Late st Contact Info) Description 12/09/1998 Outpatient Historical [facility] Felicia Kent MD [address] [place] [address] [place] [address] Social History Tobacco Use Types Packs/Day Years Used Date Smoking Tobacco: Never Assessed Comments Unknown Sex and Gender Information Value Date Recorded Sex Assigned at Not on file Legal Sex Female 4:46 AM PRESS WORKER HELPER Gender Identity Not on file Sexual [...] documented as of this encounter Care Teams Receiving Team Member Relationship Specialty [place] [address] [place] [address] PCP - General Internal Medicine 09/01/14 documented as of this encounter
--- OUTSIDE RECORDS SUMMARY | 2025-10-10 18:32 | XMS_ITS | Encounter Summary ---
Author Organization [employer] Address [address] [place] [address] Care Team Providers Care Farmworkers Name Role Phone Chelsie Pleitez MD Primary Care Provider [phone] Encounter Details Date Type Department Care Team (Late st Contact Info) Description 07/06/[address] [phone] [place] [address] [facility] [address] [place] [address] Social History Tobacco Use Types Packs/Day Years Used Date Smoking Tobacco: Never Smokeless Tobacco: Never Alcohol Use Standard Drinks/Week Comments Yes 1 (1 standard drink = 0.6 oz pur e alcohol) Social alcohol intake Comments No Sex and Gender Information Value Date Recorded Sex Assigned at Not on file Legal 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
--- OUTSIDE RECORDS SUMMARY | 2025-10-10 18:32 | XMS_ITS | Encounter Summary ---
Author Organization [facility] [employer] Address [address] [place] [address] Care Team Providers Care Char House Supervisor Name Role Phone Chelsie Pleitez MD Primary Care Provider [phone] Encounter Details Date Type Department Care Team [...] on file Legal Sex Female 4:46 AM BINDER CUTTER Gender Identity Not on file Sexual Orientation [...] documented as of this encounter Care Teams Char House Supervisor Relationship Specialty [place] [address] [place] [address] PCP - General Internal Medicine 09/01/14 documented as of this encounter
--- OUTSIDE RECORDS SUMMARY | 2025-10-10 18:32 | XMS_ITS | Encounter Summary ---
Author Organization [employer] Address [address] [place] [address] Care Team Providers Care Director Software Development Name Role Phone Chelsie Pleitez MD Primary Care Provider [phone] Encounter Details Date Type Department Care Team [...] on file Legal Sex Female 4:46 AM ELECTRICAL SYSTEMS DESIGN ENGINEER Gender Identity Not on file Sexual [...] documented as of this encounter Care Teams Director Software Development Relationship Specialty Start [place] [address] [place] [address] PCP - General Internal Medicine 09/01/14 documented as of this encounter
--- OUTSIDE RECORDS SUMMARY | 2025-10-10 18:32 | XMS_ITS | Clinical Summary ---
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
--- OUTSIDE RECORDS SUMMARY | 2025-10-10 18:32 | XMS_ITS | Encounter Summary ---
Author Organization [employer] Address [address] [place] [address] Care Team Providers Care Director Day Care Center Name Role Phone Chelsie Pleitez MD Primary Care Provider [phone] Encounter Details Date Type Department Care Team [...] on file Legal Sex Female 4:46 AM ROUTE DELIVERY MANAGER Gender Identity Not on file Sexual [...] as of this encounter Care Teams Director Day Care Center Relationship Specialty Start [place] [address] [place] [address] PCP - General Internal Medicine 09/01/14 documented as of this encounter
--- OUTSIDE RECORDS SUMMARY | 2025-10-10 18:32 | XMS_ITS | Encounter Summary ---
Author Organization [employer] Address [address] [place] [address] Care Team Providers Care Fiction Writer Name Role Phone Chelsie Pleitez MD Primary Care Provider [phone] Encounter Details Date Type Department Care Team [...] on file Legal Sex Female 4:46 AM CRUCIBLE PACKER Gender Identity Not on file Sexual Orientation [...] documented as of this encounter Care Teams Fiction Writer Relationship Specialty [place] [address] [place] [address] PCP - General Internal Medicine 09/01/14 documented as of this encounter
--- OUTSIDE RECORDS SUMMARY | 2025-10-10 18:32 | XMS_ITS | Clinical Summary ---
Author Organization [facility] Address [address] [place] [address] Care Team Providers Care Associate Financial Advisor Name Role Phone Chelsie Pleitez MD Primary Care Provider [phone] Allergies Active Allergy Reactions Criticality Noted Date Comments Antifungal - Imidazole Abdominal Pain High 8 Burning abdominal pain with all antifungals Nickel Rash Medium 06/21/2015 Medications buPROPion HCl (WELLBUTRIN XL) 300 mg Extended Release 24 hour tabletIndicatio ns:Situational mixed anxiety and depressive disorder Take 1 Tablet (300 mg) by mouth daily early childhood special educator. 90 Tablet 3 8 Active buPROPion HCl (WELLBUTRIN XL) 150 mg Extended Release 24 hour tabletIndicatio ns:Situational mixed anxiety and depressive disorder Take 1 Tablet (150 mg) by mouth daily early childhood special educator Take with 300 mg tablet. 90 Tablet [...] Encounters Date Type Department Care Team Description 09/27/2025 External Device Data [facility] ABSTRACTION Provider, Abstract 08/30/2025 External Device Data [facility] ABSTRACTION Provider, Abstract 08/24/2025 External Device Data [facility] [place]STRACTION Provider, Abstract 08/23/2025 External Device Data [facility] [place]STRACTION Provider, Abstract 08/16/2025 External Device Data [facility] ABSTRACTION Provider, Abstract from Last 3 Months Immunizations Immunization Administration [...] on file Legal Sex Female 4:46 AM BED BUG EXTERMINATOR Gender Identity Not on file Sexual Orientation Not on file Occupation Industry Job Start Date Job End Date Not on file Not on file Not on file Not on file Last Filed Vital Signs Vital Sign Reading Time Taken Comments Blood Pressure 108/66 08/31/2019 11:37 AM BED BUG EXTERMINATOR Pulse 67 08/31/2019 11:37 AM BED BUG EXTERMINATOR Temperature 36.4 C (97.5 F) 08/17/2019 8:28 AM CDT Respiratory Rate 18 08/06/2019 4:11 PM CDT Oxygen Saturation 98% 08/31/2019 11:37 AM BED BUG EXTERMINATOR Inhaled Oxygen Concentration - - Weight 73 kg (161 lb) 09/10/2019 2:11 PM BED BUG EXTERMINATOR Height 175.3 cm (5' 9) 09/10/2019 2:11 PM BED BUG EXTERMINATOR Body Mass Index 23.78 09/10/2019 2:11 PM BED BUG EXTERMINATOR Plan of Treatment Health Maintenance Due Date Last Done Comments HPV/Cotest (-29) 01/27/2005 HEPATITIS B VACCINES (2 of 3 - 19+ 3-dose series) 12/20/2011 11/22/2011, 06/08/2008, 05/12/2008 HPV/Cotest (30-65) 01/27/2014 CERVICAL CANCER SCREENING 10/27/2014 PAP SMEAR 10/27/2014 10/27/2011 Pre-Diabetes and Diabetes Screening 09/16/2021 09/16/2018, 01/23/2018, 02/17/2016 BREAST CANCER SCREENING 2024 Preventative Visit- Commercial 10/27/2024 0 07/02/2024, 01/23/2018, 02/27/2017, Additional history exists INFLUENZA VACCINE (#1) 2025 2, 08/19/2019, 09/16/2018, Additional history exists COVID-19 Vaccine (2024-2 6 season) 2025 02/28/2021, 01/17/2021 DTAP/TDAP/TD VACCINES (2 - T d or Tdap) 08/12/2026 08/12/2016, 10/27/2007 HPV VACCINES (No Doses Required) Completed Medical Devices Implanted Type Area Account Consultant Device Identifier Shelf Expiration Date Model / Serial / Lot Infuse Protein Kit [id number] - [id number] Implanted:Qty: 1 on 06/29/2015 by Maryjo Choi MD at [facility] Biological [employer] 03/26/2016 [id number] / / [id number] Seamguard Endogia 60 Prpl [id number] - [id number] Implanted:Qty: 3 on 06/24/2018 by Anurag Lee MD at [facility] Biological N/A: Stomach [employer] 02/23/2021 [id number] / / [id number] Seamguard Endogia 60 Blck [id number] - [id number] Implanted:Qty: 2 on 06/24/2018 by Anurag Lee MD at [facility] Biological N/A: Stomach [employer] 02/23/2021 [id number] / / [id number] Capstone Spinal System Implanted:Qty: 1 on 06/29/2015 by Maryjo Choi MD at [facility] Cage N/A: Spine Lumbar [employer] - SPINAL fka KYPHON 11/20/2019 [id number] / / [id number] Solera Sextant Implanted:Qty: 2 on 06/29/2015 by Maryjo Choi MD at [facility] [place] N/A: Spine Lumbar [employer] - SPINAL fka KYPHON [id number] / / Description:sterilized jun 28, 2015 load 19 Screw Solera Ma 6.5x35mm [id number] - Ssterilized Jun 28, 2015 Load 19 Implanted:Qty: 2 on 06/29/2015 by Maryjo Choi MD at [facility] Screw N/A: Spine Lumbar [employer] [id number] / STERILIZED JUN 28, 2015 LOAD 19 / Screw Solera Ma 6.5x45mm [id number] - Ssterilized Jun 28, 2015 Load 19 Implanted:Qty: 2 on 06/29/2015 by Maryjo Choi MD at [facility] Screw N/A: Spine Lumbar [employer]K [id number] / STERILIZED JUN 28, 2015 LOAD 19 / Set Screw Sextant Break-Off [id number] - Ssterilized Jun 28, 2015 Load 19 Implanted:Qty: 4 on 06/29/2015 by Maryjo Choi MD at [facility] Screw N/A: Spine Lumbar [employer]OR [employer]ANEK [id number] / STERILIZED JUN 28, 2015 LOAD 19 / Sealant Floseal W/ Adptr 10ml [id number] - [id number] Implanted:Qty: 1 on 06/29/2015 by Maryjo Choi MD at [facility] Sealant N/A: Spine Lumbar [employer] 08/26/2016 [id number] / / [id number] Procedures Procedure Name Priority Date/Time Associated Diagnosis Comments HEMOGLOBIN A1C Routine 09/16/2018 10:23 AM BED BUG EXTERMINATOR Prediabetes from Last 3 Months or Most Recently Relevant to Health Maintenance Results * HEMOGLOBIN A1C (09/16/2018 10:23 AM BED BUG EXTERMINATOR) HEMOGLOBIN A1C 5.4 <5.7 % 09/16/2018 5:20 PM BED BUG EXTERMINATOR [facility] EST. AVG GLUCOSE, A1C 108 mg/dL 09/16/2018 5:20 PM BED BUG EXTERMINATOR [facility] Blood Venipuncture / Unknown 09/16/2018 10:23 AM BED BUG EXTERMINATOR 09/16/2018 10:23 AM BED BUG EXTERMINATOR Narrative [facility] - 09/16/2018 5:20 PM BED BUG EXTERMINATOR HGB A1C INTERPRETATION NORMAL: <5.7% PRE-DIABETES: 5.7 - 6.4% DIABETES: 6.5% OR GREATER us Chelsie Pleitez MD CHEMISTRY ORDERABLES Final Resul t [facility] CLIA# [id number] [address] [id number] from Last 3 Months or Most Recently Relevant to Health Maintenance Insurance BC[employer] BLUE ACCESS/TRUE BLUE PPO [employer] Advance Directives For more information, please contact: [phone] Documents on File Type Date Recorded Patient Feller Hand Expl anation Advance Directive POA 07/05/2015 12:18 [...] 6:56 AM 06/24/2018 9:57 AM Care Teams Associate Financial Advisor Relationship Specialty Start [place] [address] [place] [id number] PCP - General Internal Medicine 09/01/14
--- OUTSIDE RECORDS SUMMARY | 2025-10-10 18:33 | XMS_ITS | Encounter Summary ---
Author Organization [facility] Address 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
--- OUTSIDE RECORDS SUMMARY | 2025-10-10 18:33 | XMS_ITS | Encounter Summary ---
Author Organization [employer] Address 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
--- OUTSIDE RECORDS SUMMARY | 2025-10-10 18:33 | XMS_ITS | Encounter Summary ---
Author Organization [facility] Address 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
--- OUTSIDE RECORDS SUMMARY | 2025-10-10 18:33 | XMS_ITS | Patient Health Record ---
Author Organization [facility] [address] Address [address] [facility] [address] [place] [address] Care Team Providers Care Straight Cutter Name Role Phone ChauBrian roque Unavailable [phone] Yarely Wyman Unavailable [phone] Yue Tinoco Unavailable [phone] Allergies Allergen (clinical drug ingredient) Drug/Non Drug Allergy documented on EMR Reaction Allergy Type Onset Date Status ANTIFUNGAL - IMIDAZO LE (uncoded) Unknown Allergy 07/14/2023 Active fluoxetine FLUoxetine HCl Unknown Drug Allergy A ctive Sertraline HCl Unknown Drug Allergy 04/05/2025 A ctive Results Component Value Reference Range Notes UDT Reviewed date:02/25/2025 02:07:56 PM Interpretation: Performing Lab: Notes/Report: Amphetamine (AMP) N 0 - 1000 ng/ml Buprenorphine (BUP) N 0 - 10 ng/ml Oxazepam (BZO) N 0 - 300 ng/ml Cocaine (STEPHANIE) N 0 - 300 ng/ml Methamphetamine (mAMP) N 0 - 300 ng/ml Methylenedioxymethamphetamine (MDMA) N 0 - 500 ng/ml Morphine (MOP) N 0 - 25 ng/ml Methadone (MTD) N 0 - 300 ng/ml Oxycodone (OXY) N 0 - 300 ng/ml THC P 0 - 50 ng/ml x N 0 - 1000 ng/ml x N 0 - 1000 ng/ml x N 0 - 300 ng/ml x N 0 - 300 ng/ml Reason For Referral No Information Medications Medication SIG (Take, Route, Frequency, Duration) Notes Start Date End Date Status Escitalopram Oxalate 20 MG Tablet 1 tablet Orally Once a day; Duration: 90 days Active hydrOXYzine HCl 25 MG Tablet 1 tablet Oral three times a day; Duration: 90 days As needed Active Propranolol HCl 10 MG Tablet 1 tablet Orally once a day; Duration: 90 days As needed Active Social History Tobacco Use: Social History Observation [...] Insomnia disorder related to another mental disorder (20751177) Insomnia due to other mental disorder (F51.05) Active confirmed improving Problem Attention deficit hyperactivity disorder, predominantly inattentive type (75173576) Attention-defic it hyperactivity disorder, predominantly inattentive type (F90.0) Active confirmed needs improvement Problem Generalized anxiety disorder (05193459) JAXSON (generalized anxiety disorder) (F41.1) Active confirmed improving Problem Severe recurrent major depression without psychotic features (03926622) Severe episode of recurrent major depressive disorder, without psychotic features (F33.2) Active confirmed Problem Mild recurrent major depression (09036573) MDD (major depressive disorder), recurrent episode, mild (F33.0) Active confirmed Problem Nondependent cannabis abuse (002098647) Marijuana use (F12.90) Active confirmed improving Problem Difficulty sleeping (888416869) Sleep difficulties (G47.9) Active confirmed home sleep studied ordered Vital Signs Heart Rate 61 /min 08/12/2025 Height-cm 172.72 cm 08/12/2025 Blood pressure diastolic 74 mm Hg 08/12/2025 Weight-kg 106.14 kg 08/12/2025 Height 68.00 in 08/12/2025 Blood pressure systolic 106 mm Hg 08/12/2025 Weight 234 lbs 08/12/2025 BMI 35.58 kg/m2 08/12/2025 Encounters Encounter Location Date Provider Diagnosis [facility] [employer], [employer] [facility] [address] [address] 02/25/2025 Brian Clubb JAXSON (generalized anxiety disorder) F41.1 ; Severe episode of recurrent major depressive disorder, without psychotic features F33.2 ; Encounter for screening for depression Z13.31 and Marijuana use F12.90 [facility] [employer], [employer] [facility] [address] [address] 04/05/2025 Brian Clubb JAXSON (generalized anxiety disorder) F41.1 ; Severe episode of recurrent major depressive disorder, without psychotic features F33.2 ; Marijuana use F12.90 ; Encounter for screening for depression Z13.31 and Encounter for screening for cardiovascular disorders Z13.6 [employer] [facility] [address] [address] 05/05/2025 Brian Clubb JAXSON (generalized anxiety disorder) F41.1 ; Severe episode of recurrent major depressive disorder, without psychotic features F33.2 ; Marijuana use F12.90 and Attention-deficit hyperactivity disorder, predominantly inattentive type F90.0 [employer] [facility] [address] [address] 05/06/2025 Yue Tinoco JAXSON (generalized anxiety disorder) F41.1 ; Major depressive disorder, recurrent severe without psychotic features F33.2 ; Attention-deficit hyperactivity disorder, predominantly inattentive type F90.0 ; Marijuana use F12.90 and Encounter for screening for depression Z13.31 [facility] [employer], [employer] [place] [address] [place] [address] 05/16/2025 Yue Hinderliter JAXSON (generalized anxiety disorder) F41.1 ; Major depressive disorder, recurrent severe without psychotic features F33.2 ; Attention-deficit hyperactivity disorder, predominantly inattentive type F90.0 and Encounter for screening for depression Z13.31 [employer], [employer] [address] [place] [address] [place] [address] 05/24/2025 Yue Hinderliter Severe episode of recurrent major depressive disorder, without psychotic features F33.2 ; JAXSON (generalized anxiety disorder) F41.1 ; Attention-deficit hyperactivity disorder, predominantly inattentive type F90.0 and Encounter for screening for depression Z13.31 [facility] [employer], [address] [place] [address] 05/24/2025 Brian Clubb JAXSON (generalized anxiety disorder) F41.1 ; Severe episode of recurrent major depressive disorder, without psychotic features F33.2 ; Marijuana use F12.90 and Attention-deficit hyperactivity disorder, predominantly inattentive type F90.0 [employer], [address] [place] [address] 05/31/2025 Yue Hinderliter JAXSON (generalized anxiety disorder) F41.1 ; Severe episode of recurrent major depressive disorder, without psychotic features F33.2 and Attention-deficit hyperactivity disorder, predominantly inattentive type F90.0 [employer] [address] [place] [address] 06/06/2025 Yue Hinderliter JAXSON (generalized anxiety disorder) F41.1 ; Severe episode of recurrent major depressive disorder, without psychotic features F33.2 and Attention-deficit hyperactivity disorder, predominantly inattentive type F90.0 [employer], [address] [place] [address] 06/06/2025 Brian Clubb JAXSON (generalized anxiety disorder) F41.1 ; Severe episode of recurrent major depressive disorder, without psychotic features F33.2 ; Marijuana use F12.90 and Attention-deficit hyperactivity disorder, predominantly inattentive type F90.0 [employer] [address] [place] [address] 06/16/2025 Yuerenee Zamudioliter JAXSON (generalized anxiety disorder) F41.1 ; Attention-deficit hyperactivity disorder, predominantly inattentive type F90.0 ; Severe episode of recurrent major depressive disorder, without psychotic features F33.2 and Insomnia due to other mental disorder F51.05 [facility] [employer] [facility], [address] [address] [place] [address] 07/07/2025 Brian Clubb JAXSON (generalized anxiety disorder) F41.1 ; Insomnia due to other mental disorder F51.05 ; Major depressive disorder, recurrent severe without psychotic features F33.2 ; Attention-deficit hyperactivity disorder, predominantly inattentive type F90.0 and Marijuana use F12.[address] [facility], [address] [address] [place] [address] 07/07/2025 Yuerenee Zamudioliter Severe episode of recurrent major depressive disorder, without psychotic features F33.2 ; JAXSON (generalized anxiety disorder) F41.1 and Attention-deficit hyperactivity disorder, predominantly inattentive type F90.0 [facility] [employer], [place] [address] [place] [address] 07/15/2025 Yuerenee Zamudioliter JAXSON (generalized anxiety disorder) F41.1 ; Severe episode of recurrent major depressive disorder, without psychotic features F33.2 and Attention-deficit hyperactivity disorder, predominantly inattentive type F90.0 [facility] [employer] [facility], [address] [address] [place] [address] 08/12/2025 Brian Clubb MDD (major depressiv e disorder), recurrent episode, mild F33.0 ; JAXSON (generalized anxiety disorder) F41.1 ; Attention-deficit hyperactivity disorder, predominantly inattentive type F90.0 and Sleep difficulties G47.9 [facility] [employer] [facility] [address] [place] [address] 10/10/2025 Brian Clubb [facility] [employer] [facility] [address] [place] [address] 02/23/2025 Yarely Wyman [facility] [employer] [facility], [address] [address] [place] [address] 03/24/2025 Brian Clubb JAXSON (generalized anxiety disorder) F41.1 [facility], [facility] [address] [place] [address] 04/07/2025 Brian Clubb [facility], [address] [address] [place] [address] 05/16/2025 Brian Clubb [facility], [address] [address] [place] [address] 05/27/2025 Brian Clubb [facility], [address] [place] [address] 06/13/2025 Yue Zamudiopinky [facility], [facility] [address] [place] [address] 06/24/2025 Brian Clubb [facility], [facility] [address] [place] [address] 07/07/2025 Brian Clubb [facility], [facility] [address] [place] [address] 07/07/2025 Brian Clubb [facility] [employer], [facility] [address] [place] [address] 07/12/2025 Brian Clubb [facility], [facility] [address] [place] [address] 07/14/2025 Brian Clubb [facility] [employer], [facility] [address] [place] [address] 07/15/2025 Brian Clubb [facility], [facility] [address] [place] [address] 07/19/2025 Brian Clubb [facility] [employer], [facility] [address] [place] [address] 07/29/2025 Brian Clubb [facility], [facility] [address] [place] [address] 08/01/2025 Brian Clubb [facility], [facility] [address] [place] [address] 08/02/2025 Brian Clubb [facility], [facility] [address] [place] [address] 10/05/2025 Brian Clubb Assessments Encounter Date Diagnosis (ICD Code) Assessment Notes Treatment Notes Treatment Clinical Notes Section Notes 04/05/2025 JAXSON (generalized anxiety disorder) (ICD-10 - F41.1) 03/24/2025 JAXSON (generalized anxiety disorder) (ICD-10 - [...] prescribed by Brian - Follow up with OB-BRIM STRETCHER for potential ablation or hysterectomy to address [...] Encourage daughter's participation in positive activities (e.g., [employer], [employer]) - Address concerns about daughter's [...] prescribed by Brian - Follow up with OB-BRIM STRETCHER for potential ablation or hysterectomy to address [...] Encourage daughter's participation in positive activities (e.g., [employer], [employer]) - Address concerns about daughter's living situation with ex- as appropriate 05/31/2025 JAXSON (generalized anxiety disorder) (ICD-10 - [...] health treatment with any planned gynecological interventions 06/16/2025 Attention-defici t hyperactivity disorder, predominantly inattentive [...] quality of life and sleep patterns. An OB-BRIM STRETCHER has recommended progesterone treatment and is planning a hysterectomy to address these issues. The patient is awaiting scheduling of the procedure. Plan: - Follow up with OB-BRIM STRETCHER regarding progesterone treatment and hysterectomy scheduling - [...] quality of life and sleep patterns. An OB-BRIM STRETCHER has recommended progesterone treatment and is planning a hysterectomy to address these issues. The patient is awaiting scheduling of the procedure. Plan: - Follow up with OB-BRIM STRETCHER regarding progesterone treatment and hysterectomy scheduling - [...] management techniques to potentially alleviate skin issues 07/15/2025 JAXSON (generalized anxiety disorder) (ICD-10 - [...] - Assist patient in developing a structured ggsjrm-qp-fxdv plan: - Start with 20 hours per week, gradually increasing to 30 hours - Full-time return planned for after August 03 surgery recovery - Recommend patient discuss specific work schedule preferences with her boss (e.g., morning vs. afternoon shifts, specific days of the week) - Advise patient to request updated [facility] paperwork from Brian to support gradual return [...] - Assist patient in developing a structured rlxfkl-qq-fxla plan: - Start with 20 hours per [...] transition progress and adjust plan as needed 08/12/2025 JAXSON (generalized anxiety disorder) (ICD-10 - F41.1) 08/12/2025 MDD (major depressive disorder), recurrent episode, mild (ICD-10 - F33.0) 07/07/2025 Insomnia due to other mental disorder [...] for daily functioning - Encourage use of ipsm-xe-hbyc or audio recording for journaling and idea [...] for daily functioning - Encourage use of udmk-ji-asfj or audio recording for journaling and idea [...] and adjust treatment plan as needed 06/06/2025 JAXSON (generalized anxiety disorder) (ICD-10 - [...] mood issues. Plan: - Follow up with circular saw edge fuser is scheduled later this month - Explore [...] mood issues. Plan: - Follow up with circular saw edge fuser is scheduled later this month - Explore [...] supporting daughter's anxiety while managing own symptoms 02/25/2025 JAXSON (generalized anxiety disorder) (ICD-10 - [...] for daily functioning - Encourage use of evgf-ow-daon or audio recording for journaling and idea [...] health and adjust treatment plan as needed 02/25/2025 Encounter for screening for depression (ICD-10 - Z13.31) 06/06/2025 Marijuana use (ICD-10 - F12.90) improving [...] mood issues. Plan: - Follow up with circular saw edge fuser is scheduled later this month - Explore [...] supporting daughter's anxiety while managing own symptoms 07/07/2025 Major depressive disorder, recurrent severe without [...] emergency services. discussed crisis prevention hotline [phone]. 08/12/2025 Attention-defici t hyperactivity disorder, predominantly inattentive type (ICD-10 - F90.0) 06/16/2025 Severe episode of recurrent major depressive [...] quality of life and sleep patterns. An OB-BRIM STRETCHER has recommended progesterone treatment and is planning a hysterectomy to address these issues. The patient is awaiting scheduling of the procedure. Plan: - Follow up with OB-BRIM STRETCHER regarding progesterone treatment and hysterectomy scheduling - [...] management techniques to potentially alleviate skin issues 07/15/2025 Attention-defici t hyperactivity disorder, predominantly inattentive [...] - Assist patient in developing a structured heuebq-jn-lrbg plan: - Start with 20 hours per week, gradually increasing to 30 hours - Full-time return planned for after August 03 surgery recovery - Recommend patient discuss specific work schedule preferences with her boss (e.g., morning vs. afternoon shifts, specific days of the week) - Advise patient to request updated [facility] paperwork from Brian to support gradual return to work - Schedule follow-up appointment to review work transition progress and adjust plan as needed 05/24/2025 Marijuana use (ICD-10 - F12.90) improving [...] prescribed by Brian - Follow up with OB-BRIM STRETCHER for potential ablation or hysterectomy to address [...] Encourage daughter's participation in positive activities (e.g., [employer], [employer]) - Address concerns about daughter's living situation [...] disorder, without psychotic features (ICD-10 - F33.2) 04/05/2025 Marijuana use (ICD-10 - F12.90) 05/05/2025 Attention-defici t hyperactivity disorder, predominantly inattentive type (ICD-10 - F90.0) 05/06/2025 Marijuana use (ICD-10 - F12.90) Anxiety [...] management techniques into overall treatment plan 05/16/2025 Encounter for screening for depression (ICD-10 [...] management with psychiatrist if symptoms persist 05/24/2025 Encounter for screening for depression (ICD-10 [...] prescribed by Brian - Follow up with OB-BRIM STRETCHER for potential ablation or hysterectomy to address [...] Encourage daughter's participation in positive activities (e.g., [employer], [employer]) - Address concerns about daughter's living situation with ex- as appropriate 06/16/2025 Insomnia due to other mental disorder [...] quality of life and sleep patterns. An OB-BRIM STRETCHER has recommended progesterone treatment and is planning a hysterectomy to address these issues. The patient is awaiting scheduling of the procedure. Plan: - Follow up with OB-BRIM STRETCHER regarding progesterone treatment and hysterectomy scheduling - [...] disorder, predominantly inattentive type (ICD-10 - F90.0) 08/12/2025 Sleep difficulties (ICD-10 - G47.9) home sleep studied ordered 07/07/2025 Attention-defici t hyperactivity disorder, predominantly inattentive type (ICD-10 - F90.0) needs improvement 06/06/2025 Attention-defici t hyperactivity disorder, predominantly inattentive type (ICD-10 - F90.0) 02/25/2025 Marijuana use (ICD-10 - F12.90) 07/07/2025 Marijuana use (ICD-10 - F12.90) improving 04/05/2025 Encounter for screening for depression (ICD-10 [...] her father's suicide this year and her iiukii-xb-vtm's current critical health condition. These factors likely [...] quality and daytime agitation management. d. Recommend lhmd-qoq-imubi er [employer] and magnesium supplement for additional [...] to assess medication efficacy and side effects. 08/12/2025 Other 1. Major Depressive Disorder - Patient rates depression at 2-3/10. - Milner Depression Inventory score: 10 (decreased from 52 at initial visit) - Plan: a. Continue Lexapro 20 mg daily. b. Continue propranolol as needed. c. Continue hydroxyzine as needed. d. Refill all medications to [facility]. 2. Generalized Anxiety Disorder - Patient rates anxiety at 2-3/10 with occasional spikes to 4. - Plan: a. Continue current regimen with Lexapro, propranolol as needed, and hydroxyzine as needed. b. continue therapy c. Recommend taking propranolol on empty stomach for better efficacy. 3. Insomnia - Patient reports ongoing sleep difficulties with lifelong insomnia. - Plan: a. Order home sleep study through [employer]. b. Patient will receive text from [employer] with instructions. c. Patient to fill out registration form online after receiving text or call [facility]. d. Process takes approximately one month with mailed equipment and instructions. 4. Executive Dysfunction and Concentration Difficulties - Patient reports significant ongoing struggles with executive dysfunction, motivation, and staying on task. - Plan: a. Defer ADHD treatment to allow continued stabilization on current psychiatric medications. b. Patient expressed desire to explore ADHD treatment in future once more stable. Plan Of Treatment No Information Insurance Providers Payer Name Payer Address Payer Phone Subscriber Number Group Number Insured Name Patient Relationship to Insured Coverage Start Date Coverage End Date [employer] [employer] [address] [place] [address] [id number] DAVE PASCUAL Self - patient is the [...] Surgical History Surgery Date(Month/Year) Removal of gallbladder (56982) 9 Any surgical history 07/08/2018 shoulder surgery ovarian cyst hysterectomy- with one ovary removed Hospitalization History Reason Date(Month/Year) surgeries
--- OUTSIDE RECORDS SUMMARY | 2025-10-10 18:33 | XMS_ITS | Encounter Summary ---
Author Organization [employer] Address 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
--- OUTSIDE RECORDS SUMMARY | 2025-10-10 18:33 | XMS_ITS | Encounter Summary ---
Author Organization [employer] Address 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
== END 2025-10-10 18:28 | disposition home or self-care (01) ==
LOC: ANHED 17:47
PROVIDERS: Emergency Medicine; Emergency Provider Student in an Organized Health Care Education/Training Program
DX: R74.01 Elevation of levels of liver transaminase levels (principal); N93.9 Abnormal uterine and vaginal bleeding, unspecified; F41.9 Anxiety disorder, unspecified; F90.9 Attention-deficit hyperactivity disorder, unspecified type
CPT/HCPCS: 36415; 74177; 80053; 80074; 85025; 85610; 93005; 96361; 96374; 99284; A9270; J2405; J7030; Q9967